=== PATIENT | male | born 1960 | race Caucasian/White ===

== ENCOUNTER 2016-11-13 13:42 | Emergency (ER) | payer MEDICAID ==
[~2016-11-13] VITALS: Ht 162.6 cm; Wt 63.5 kg
[~2016-11-13 13:42] MED LIST: ASP81CT PEG; Atorvastatin Calcium PO; BETH25TA PEG; ENXP40I.4 SC; FAMO20TA13 PEG; HYDR-3812 PO; HYDR1TAB8 OP; INSU100I16 SQ; INSU100V5 SQ; Insulin Human Lispro SC; NS10S IV; Paroxetine Hcl PO; Polyethylene Glycol PO; SULF1TAB38 PO; Tamsulosin Hcl PO
[2016-11-13] MEDS: fentaNYL INJECTION 100 MCG/2 ML AMP IVP STA ×2 (16:15→18:15)
[2016-11-13] MEDS: VANCOMYCIN INJECTION 1,000 MG in NS (IVPB) 250 ML IV ONE ×2 (16:15→18:15)
--- NOTE | 2016-11-13 16:35 | Diagnostic Imaging Report ---
INDICATION: Pain and swelling and redness in right foot. AP, oblique, and lateral views of the right foot are obtained. No fracture or acute bony abnormality is seen. Joint spaces are unremarkable. Impression: Negative right foot. Dictated by: Dictated on workstation # [id number]
--- NOTE | 2016-11-13 16:45 | ED Lower Extremity ---
General Chief Complaint: Lower Extremity Stated Complaint: R FOOT SWELLING Nursing Triage Note: c/o pain/swelling/redness to toes right foot. Onset 4-5 days ago. Nursing Sepsis Screen: No Definite Risk Source: patient, family Exam Limitations: no limitations History of Present Illness Time seen by provider: 15:25 Initial Comments 56-year-old male patient presents to the emergency department with complaints of redness, swelling, and pain to the right foot. Onset 4-5 days ago. Denies fever or chills. Family reports they were bringing the patient's father to be seen in the emergency department and thought they would bring the patient as well. Onset: other (4-5 days ago) Pain/Injury Location: right foot Method of Injury: unknown (denies known injury) Allergies and Home Medications Allergies Coded Allergies: No Known Drug Allergies (Unverified , 10/09/12) Home Medications Aspirin 81 Mg Chew, 81 MG PEG DAILY@0900 for 30 Days Prescribed by: BARBARA ALVAREZ on 12/05/13 1404 Atorvastatin Calcium 20 Mg Tablet, 20 MG PO HS for 30 Days, #30 Ref 0 Prescribed by: ANMOL NERI on 11/28/16 1713 Bethanechol Chl 25 Mg Tab, 50 MG PEG ACHS for 30 Days Prescribed by: BARBARA ALVAREZ on 12/05/13 1404 Doxycycline Hyclate 100 Mg Capsule, 100 MG PO BID, #20 Ref 0 Prescribed by: INDY BLANC on 11/13/16 1904 Famotidine 20 Mg Tablet, 20 MG PEG BID for 30 Days Prescribed by: BARBARA ALVAREZ on 12/05/13 1404 Hydrocodone/Acetaminophen 1 Each Tablet, 1 EACH PO Q4H PRN for PAIN, #20 Ref 0 Prescribed by: INDY BLANC on 11/22/14 1811 Insulin Detemir 1 Unit/0.01 Ml Soln, 25 UNIT SQ DAILY@0600, #1 Prescribed by: ROLY WELLS on 12/25/13 2021 Insulin Detemir 100 Unit/1 Ml Insuln.pen, 25 UNIT SQ HS for 30 Days, #3 Ref 0 Prescribed by: ANMOL NERI on 11/28/16 1713 Insulin Lispro 100 Unit/1 Ml Insuln.pen, 12 UNIT SQ TIDAC for 30 Days, #4 Ref 0 Prescribed by: ANMOL NERI on 11/28/161712 Paroxetine HCl 20 Mg Tablet, 20 MG PO HS for 30 Days, #30 Ref 0 Prescribed by: ANMOL NERI on 11/28/161712 Sulfamethoxazole/Trimethoprim 1 Each Tablet, 1 EACH PO BID, #20 Ref 0 Prescribed by: INDY BLANC on 11/13/161903 Tamsulosin HCl 0.4 Mg Cap, 0.4 MG PO HS for 30 Days, #30 Ref 0 Prescribed by: ANMOL NERI on 11/28/161712 Tramadol HCl 50 Mg Tablet, 50 MG PO Q4H PRN for pain, #14 Ref 0 Prescribed by: INDY BLANC on 11/13/161903 [Atorvastatin Calcium] 20 MG TABLET, 20 MG PO HS Prescribed by: BARBARA ALVAREZ on 12/05/13 1404 [Insulin Human Lispro] 1 UNIT/0.01 ML JAMIA, 12 UNIT SC AC, #1 Prescribed by: ROLY WELLS on 12/25/132020 [Paroxetine Hcl] 20 MG TAB, 20 MG PO DAILY, #30 Prescribed by: ROLY WELLS on 12/25/132020 [Polyethylene Glycol] 17 GM PACK, 17 GM PO HS, #1 Prescribed by: ROLY WELLS on 12/25/132020 [Tamsulosin Hcl] 0.4 MG CAP, 0.4 MG PO DAILY@1800, #30 Prescribed by: ROLY WELLS on 12/25/132020 Constitutional: No chills, No fever, No malaise Respiratory: no symptoms reported Cardiovascular: no symptoms reported Gastrointestinal: no symptoms reported Musculoskeletal: see HPI Skin: see HPI Psychiatric/Neurological: No Symptoms Reported All Other Systems Reviewed Negative Unless Noted: Yes (Negative excepted noted.) Past Jbxicjk-Splhsm-Zeorry Hx Patient Social History Recent Foreign Travel: No Contact w/Someone Who Travel: No Recent Infectious Disease Expo: No Immunizations Up To Date Tetanus Booster (TDap): Unknown Date of Pneumonia Vaccine: Nov 24, 2013 Date of Influenza Vaccine: Nov 29, 2013 Surgeries History of Surgeries: Yes (PEG tube) Respiratory History of Respiratory Disorde: No Cardiovascular History of Cardiac Disorders: No Neurological History of Neurological Disord: Yes Neurological Disorders: Stroke Reproductive System Hx Reproductive Disorders: No Genitourinary History of Genitourinary Disor: No Gastrointestinal History of Gastrointestinal Di: No Musculoskeletal History of Musculoskeletal Dis: No Endocrine History of Endocrine Disorders: Yes Endocrine Disorders: Diabetes, Insulin dep HEENT History of HEENT Disorders: No Reviewed Nursing Assessment Reviewed/Agree w Nursing PMH: Yes Family Medical History Significant Family History: No Pertinent Family Hx Family Medial History: Cardiovascular disease 19 FATHER 19 MOTHER Diabetes mellitus FH: congestive heart failure FH: prostate cancer Hypertension 19 MOTHER Myocardial infarction Respiratory disorder 19 MOTHER Physical Exam Vital Signs Capillary Refill : Less Than 3 Seconds General Appearance: WD/WN, no apparent distress, other (chronically ill- appearing male patient. Dirty, unkempt, malodorous.) Cardiovascular: regular rate, rhythm, no murmur Respiratory: lungs clear, normal breath sounds, no respiratory distress, no accessory muscle use Feet: left foot non-tender, right foot infection (erythema, warmth, swelling, and tenderness noted over the 1st and 2nd toes. numerous maggots noted on the wound bed.) Neurologic/Psychiatric: alert, depressed affect, other (expressive aphasia ( family reports this is normal for the patient due to a h/o stroke)) Skin: warm/dry, No cyanosis, No cool, No mottled, other (erythema, warmth, swelling, and tenderness noted over the rt 1st and 2nd toes. numerous maggots noted on the wound bed.) Progress/Results/Core Measures Results/Orders Lab Results Laboratory Tests Test 11/13/16 17:06 Range/Units White Blood Count 8.8 4.3-11.0 10^3/uL Red Blood Count 4.59 4.35-5.85 10^6/uL Hemoglobin 14.4 13.3-17.7 G/DL Hematocrit 40 40-54 % Mean Corpuscular Volume 87 80-99 FL Mean Corpuscular Hemoglobin 31 25-34 PG Mean Corpuscular Hemoglobin Concent 36 32-36 G/DL Red Cell Distribution Width 13.8 10.0-14.5 % Platelet Count 188 130-400 10^3/uL Mean Platelet Volume 10.7 H 7.4-10.4 FL Neutrophils (%) (Auto) 76 H 42-75 % Lymphocytes (%) (Auto) 17 12-44 % Monocytes (%) (Auto) 6 0-12 % Eosinophils (%) (Auto) 1 0-10 % Basophils (%) (Auto) 1 0-10 % Neutrophils # (Auto) 6.6 1.8-7.8 X 10^3 Lymphocytes # (Auto) 1.5 1.0-4.0 X 10^3 Monocytes # (Auto) 0.5 0.0-1.0 X 10^3 Eosinophils # (Auto) 0.1 0.0-0.3 10^3/uL Basophils # (Auto) 0.0 0.0-0.1 10^3/uL Sodium Level 137 135-145 MMOL/L Potassium Level 3.8 3.6-5.0 MMOL/L Chloride Level 101 98-107 MMOL/L Carbon Dioxide Level 26 21-32 MMOL/L Anion Gap 10 5-14 MMOL/L Blood Urea Nitrogen 15 7-18 MG/DL Creatinine 0.74 0.60-1.30 MG/DL Estimat Glomerular Filtration Rate > 60 BUN/Creatinine Ratio 20 Glucose Level 297 H 70-105 MG/DL Calcium Level 9.2 8.5-10.1 MG/DL Total Bilirubin 0.5 0.1-1.0 MG/DL Aspartate Amino Transf (AST/SGOT) 23 5-34 U/L Alanine Aminotransferase (ALT/SGPT) 30 0-55 U/L Alkaline Phosphatase 112 40-136 U/L C-Reactive Protein High Sensitivity 0.37 0.00-0.50 MG/DL Total Protein 6.7 6.4-8.2 GM/DL Albumin 3.4 3.2-4.5 GM/DL My Orders Orders - INDY BLANC Cbc With Automated Diff (11/13/16 15:56) Comprehensive Metabolic Panel (11/13/16 15:56) Hs C Reactive Protein (11/13/16 15:56) Saline Lock/Iv-Start (11/13/16 15:56) Foot, Right, 3 View (11/13/16 15:56) Fentanyl Injection (Sublimaze Injection (11/13/16 15:56) Levofloxacin Tablet (Levaquin Tablet) (11/13/16 17:51) Vancomycin Injection (Vancomycin Injecti (11/13/16 18:00) Lidocaine 2% Injection 20 Ml (Xylocaine (11/13/16 18:15) Bupivacaine 0.5% Injection (Sensorcaine (11/13/16 18:15) Iv Infusion <= First Hr Ed (11/13/16 ) Medications Given in ED Vital Signs/I&O Blood Pressure Mean: 107 Diagnostic Imaging Diagonstic Imaging: Xray Plain Films/CT/US/NM/MRI: other (rt foot) Comments FINDINGS: 3 views of the right ankle are obtained. No acute fracture, malalignment, or osseous destructive process is seen. The joint spaces are preserved. The soft tissues appear unremarkable. IMPRESSION: Negative right ankle. Dictated on workstation # [id number] Reviewed: Reviewed by Me (radiology report reviewed by me) Departure Communication (Admissions) Progress Notes All laboratory findings, diagnostic study findings, history, vital signs, and exam findings discussed with Dr. Alves. Recommendations by Dr. Alves are for discharge to home with oral Bactrim and doxycycline. Recommends follow-up with Dr. Georges as an outpatient for recheck on Wednesday. Laboratory findings, diagnostic study findings, and recommendations by Dr. Alves were discussed with the patient and family. Patient was given 1 g of vancomycin IV and Levaquin 500 mg by mouth 1 dose in the emergency department. Proceed with discharge to home. All return precautions were discussed with the patient and family as described in the discharge instructions of this report. All verbalize understanding and agree with the treatment plan. Patient case discussed with Dr. Edwards, he agrees with the plan of care. Impression Impression: Primary Impression: Cellulitis of foot, right Additional Impressions: Insulin dependent type 2 diabetes mellitus Diabetic foot ulcer Disposition: HOME, SELF-CARE Condition: Improved Departure-Patient Inst. Decision time for Depature: 19:01 Referrals: CHRISTIANO GEORGES MD (PCP/Family) Primary Care Physician Patient Instructions: Cellulitis (Skin Infection), Adult (DC), Diabetic Foot Ulcer (DC) Add. Discharge Instructions: All discharge instructions reviewed with patient and/or family. Voiced understanding. Medications as instructed. Continue usual home medications. Elevate the right foot on pillows. Shower with antibacterial soap. Monitor blood sugars closely. Call Outpatient wound care at [facility] Wednesday morning to schedule an appointment as an outpatient for evaluation and treatment. Return to the emergency department for worsened redness, pain, drainage, fever, or any other concerns. Scripts Tramadol HCl (Tramadol HCl) 50 Mg Tablet 50 MG PO Q4H Y for pain, #14 TAB 0 Refills Prov: INDY BLANC 11/13/16 Sulfamethoxazole/Trimethoprim (Bactrim Ds Tablet) 1 Each Tablet 1 EACH PO BID, #20 TAB 0 Refills Prov: INDY BLANC 11/13/16 Doxycycline Hyclate (Doxycycline Hyclate) 100 Mg Capsule 100 MG PO BID, #20 CAP 0 Refills Prov: INDY BLANC 11/13/16 INDY BLANC Nov 13, 2016 16:45
[2016-11-13 17:21] LABS: BASOPHILS % (AUTO) 1 % (0-10); EOSINOPHILS # (AUTO) 0.1 10^3/uL (0.0-0.3); EOSINOPHILS % (AUTO) 1 % (0-10); LYMPHOCYTES # (AUTO) 1.5 X 10^3 (1.0-4.0); LYMPHOCYTES % (AUTO) 17 % (12-44); MEAN CORPUSCULAR HEMOGLOBIN 31 PG (25-34); MEAN CORPUSCULAR HGB CONC 36 G/DL (32-36); MEAN CORPUSCULAR VOLUME 87 FL (80-99); MEAN PLATELET VOLUME 10.7 FL (7.4-10.4); MONOCYTES # (AUTO) 0.5 X 10^3 (0.0-1.0); MONOCYTES % (AUTO) 6 % (0-12); NEUTROPHILS # (AUTO) 6.6 X 10^3 (1.8-7.8); NEUTROPHILS % (AUTO) 76 % (42-75); PLATELET COUNT 188 10^3/uL (130-400); RED BLOOD COUNT 4.59 10^6/uL (4.35-5.85); RED CELL DISTRIBUTION WIDTH 13.8 % (10.0-14.5); WHITE BLOOD COUNT 8.8 10^3/uL (4.3-11.0)
[2016-11-13 17:47] LABS: ALANINE AMINOTRANSFERASE 30 U/L (0-55); ALBUMIN 3.4 GM/DL (3.2-4.5); ANION GAP 10 MMOL/L (5-14); ASPARTATE AMINO TRANSFERASE 23 U/L (5-34); BILIRUBIN,TOTAL 0.5 MG/DL (0.1-1.0); BLOOD UREA NITROGEN 15 MG/DL (7-18); BUN/CREATININE RATIO 20; CALCIUM 9.2 MG/DL (8.5-10.1); CARBON DIOXIDE 26 MMOL/L (21-32); CHLORIDE 101 MMOL/L (98-107); CREATININE SERUM 0.74 MG/DL (0.60-1.30); GFR ESTIMATED > 60; GLUCOSE 297 MG/DL (70-105); POTASSIUM 3.8 MMOL/L (3.6-5.0); SODIUM 137 MMOL/L (135-145); TOTAL PROTEIN 6.7 GM/DL (6.4-8.2); hs C REACTIVE PROTEIN 0.37 MG/DL (0.00-0.50)
[2016-11-13] MEDS ORDERED: LEVOFLOXACIN 500 MG TAB (LEVAQUIN) PO STA (17:51)
[2016-11-13] MEDS ORDERED: LIDOCAINE 2% 20 ML (XYLOCAINE) VIAL INJ ONE (18:15)
[2016-11-13] MEDS ORDERED: BUPIVACAINE 0.5% 30 ML (SENSORCAINE) VIAL INJ ONE (18:15)
[2016-11-13] MEDS ORDERED: TRAM50TA2 PO (19:04)
[2016-11-13] MEDS ORDERED: DOXY100C2 PO (19:04)
[2016-11-13] MEDS ORDERED: SULF1TAB35 PO (19:04)
[2016-11-13 19:32] VITALS: BP 163/98
== END 2016-11-13 19:32 | disposition home or self-care (01) ==
LOC: EDUNIT# 13:42 → ER 13:45
DX: E11.621 Type 2 diabetes mellitus with foot ulcer (principal); L97.519 Non-pressure chronic ulcer of other part of right foot with unspecified severity; Z82.49 Family history of ischemic heart disease and other diseases of the circulatory system; Z80.42 Family history of malignant neoplasm of prostate; Z79.82 Long term (current) use of aspirin; Z79.4 Long term (current) use of insulin; Z86.73 Personal history of transient ischemic attack (TIA), and cerebral infarction without residual deficits
CPT/HCPCS: 36415; 73630; 80053; 85025; 85027; 86141; 96365; 96375

== ENCOUNTER → 2016-11-23 | Outpatient (CLI) | payer MEDICAID ==
[~2016-11-23] MED LIST changes: +DOXY100C2 PO; +SULF1TAB35 PO; +TRAM50TA2 PO
== END ==
LOC: WOUNDCARE 13:41
PROVIDERS: ATTEND Surgery
DX: E11.621 Type 2 diabetes mellitus with foot ulcer (principal); L97.511 Non-pressure chronic ulcer of other part of right foot limited to breakdown of skin; I69.30 Unspecified sequelae of cerebral infarction
CPT/HCPCS: 97597

== ENCOUNTER 2016-11-28 16:31 | Emergency (ER) | payer MEDICAID ==
[~2016-11-28] VITALS: Ht 162.6 cm; Wt 63.5 kg
--- NOTE | 2016-11-28 17:02 | ED General ---
General Chief Complaint: Glucose Problems Stated Complaint: NEEDS INSULIN SHOT Nursing Triage Note: PT BROUGHT TO ROOM BY WHEELCHAIR. PT STATES HE NEEDS A REFILL ON HIS MEDICATIONS AND HIS INSULIN. Nursing Sepsis Screen: No Definite Risk Source of Information: Patient, Family (father and significant other) Exam Limitations: No Limitations History of Present Illness Time Seen by Provider: 16:47 Initial Comments Patient presents to ER by private conveyance with a chief complaint of being out of his meds. His caregiver and family have tried getting refills for the past couple weeks but apparently his physician has moved and there was no notice given and the clinic is not filling his insulin her meds. He is in the middle of wound care treatment for a wound on the right great toe and doing well with this however his blood sugar has been over 300 for the past 3 days because he's been out of insulin for the past 3 days. He is otherwise without complaint just needs refills. He has not found a new doctor yet. Allergies and Home Medications Allergies Coded Allergies: No Known Drug Allergies (Unverified , 10/09/12) Home Medications Aspirin 81 Mg Chew, 81 MG PEG DAILY@0900 for 30 Days Prescribed by: BARBARA ALVAREZ on 12/05/131403 Bethanechol Chl 25 Mg Tab, 50 MG PEG ACHS for 30 Days Prescribed by: BARBARA ALVAREZ on 12/05/13 140 Doxycycline Hyclate 100 Mg Capsule, 100 MG PO BID, #20 Ref 0 Prescribed by: INDY BLANC on 11/13/161903 Famotidine 20 Mg Tablet, 20 MG PEG BID for 30 Days Prescribed by: BARBARA ALVAREZ on 12/05/13 140 Hydrocodone/Acetaminophen 1 Each Tablet, 1 EACH PO Q4H PRN for PAIN, #20 Ref 0 Prescribed by: INDY BLANC on 11/22/141810 Insulin Detemir 1 Unit/0.01 Ml Soln, 25 UNIT SQ DAILY@0600, #1 Prescribed by: ROLY WELLS on 12/25/132020 Sulfamethoxazole/Trimethoprim 1 Each Tablet, 1 EACH PO BID, #20 Ref 0 Prescribed by: INDY BLANC on 11/13/161903 Tramadol HCl 50 Mg Tablet, 50 MG PO Q4H PRN for pain, #14 Ref 0 Prescribed by: INDY BLANC on 11/13/161903 [Atorvastatin Calcium] 20 MG TABLET, 20 MG PO HS Prescribed by: BARBARA ALVAREZ on 12/05/13 1404 [Insulin Human Lispro] 1 UNIT/0.01 ML JAMIA, 12 UNIT SC AC, #1 Prescribed by: ROLY WELLS on 12/25/132020 [Paroxetine Hcl] 20 MG TAB, 20 MG PO DAILY, #30 Prescribed by: ROLY WELLS on 12/25/132020 [Polyethylene Glycol] 17 GM PACK, 17 GM PO HS, #1 Prescribed by: ROLY WELLS on 12/25/132020 [Tamsulosin Hcl] 0.4 MG CAP, 0.4 MG PO DAILY@1800, #30 Prescribed by: ROLY WELLS on 12/25/132020 Constitutional: No chills, No diaphoresis, No fever EENTM: No ear pain, No eye pain Respiratory: No cough, No short of breath Cardiovascular: No chest pain, edema Gastrointestinal: No abdominal pain, No constipation, No diarrhea, No nausea Genitourinary: No discharge, No dysuria Musculoskeletal: No back pain, No joint pain Skin: No pruritus, No rash, other (wound on right foot) Psychiatric/Neurological: Denies Headache, Denies Numbness, Denies Paresthesia Past Pjzbypw-Gosfhl-Cmpqbm Hx Patient Social History Alcohol Use: Denies Use Recreational Drug Use: No Smoking Status: Never a Smoker 2nd Hand Smoke Exposure: Yes Recent Foreign Travel: No Contact w/Someone Who Travel: No Recent Infectious Disease Expo: No Recent Hopitalizations: No Physical Abuse: No Sexual Abuse: No Immunizations Up To Date Tetanus Booster (TDap): Unknown Date of Pneumonia Vaccine: Nov 24, 2013 Date of Influenza Vaccine: Nov 29, 2013 Seasonal Allergies Seasonal Allergies: No Surgeries History of Surgeries: Yes (PEG tube) Respiratory History of Respiratory Disorde: No Cardiovascular History of Cardiac Disorders: No Neurological History of Neurological Disord: Yes Neurological Disorders: Stroke Reproductive System Hx Reproductive Disorders: No Genitourinary History of Genitourinary Disor: No Gastrointestinal History of Gastrointestinal Di: No Musculoskeletal History of Musculoskeletal Dis: No Endocrine History of Endocrine Disorders: Yes Endocrine Disorders: Diabetes, Insulin dep HEENT History of HEENT Disorders: No Cancer History of Cancer: No Psychosocial History of Psychiatric Problem: No Suicide Risk Score: 0 Integumentary History of Skin or Integumenta: No Blood Transfusions History of Blood Disorders: No Family Medical History Significant Family History: No Pertinent Family Hx Family Medial History: Cardiovascular disease 19 FATHER 19 MOTHER Diabetes mellitus FH: congestive heart failure FH: prostate cancer Hypertension 19 MOTHER Myocardial infarction Respiratory disorder 19 MOTHER Physical Exam Vital Signs Vital Sign - Last 12Hours 11/28/16 16:38 Temp 98.3 Pulse 99 Resp 20 B/P (MAP) 138/89 Pulse Ox 96 O2 Delivery Room Air Capillary Refill : Less Than 3 Seconds General Appearance: No Apparent Distress, Thin Eyes: Bilateral Eye Normal Inspection, Bilateral Eye PERRL, Bilateral Eye EOMI HEENT: Pharynx Normal Neck: Normal Inspection, Non Tender Extremity: Normal Capillary Refill, Pedal Edema (1+), Other (dorsal pedal pulses palpable 2 out of 4 bilateral feet) Neurologic/Psychiatric: Alert, Oriented x3 Skin: Other (right foot great toe scaling with a wound is healed over and minor amount of eschar no drainage without redness, tenderness or discoloration. ) Progress/Results/Core Measures Results/Orders Vital Signs/I&O Vital Sign - Last 12Hours 11/28/16 16:38 Temp 98.3 Pulse 99 Resp 20 B/P (MAP) 138/89 Pulse Ox 96 O2 Delivery Room Air Blood Pressure Mean: 105 Progress Note : Time: 17:01 Progress Note We will refill his DME, insulin and Flexeril. The patient states he is taking Levemir 25 units at night and Humalog 25 units in the morning. We have recommended he follow up with a primary care physician such as [facility] and they can help him sort out his insulin. Discussed appropriate use a Humalog 3 times a day. Discussed wound healing benefits of keeping the blood sugar below 180. 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 Decision time for Depature: 17:02 Referrals: CHRISTIANO VELEZ MD (PCP/Family) Primary Care Physician Patient Instructions: Diabetes Type 2 (DC) Add. Discharge Instructions: Please poultry picker your insulin and diabetes supplies at the pharmacy and try and keep the blood sugars below 180 by controlling the diet and avoiding carbohydrate, sugar rich foods such as prostate, rice, potatoes, soda, dairy. Try and eat more vegetables, meat, eggs and fish. Try to get adequate fiber in your diet. Keep a record of your blood sugars and take them with you to your new doctor appointment. Wednesday morning I recommend you call the doctor of your choice. I suggest [facility] and [place] [facility] at [phone]. All discharge instructions reviewed with patient and/or family. Voiced understanding. Scripts Tamsulosin HCl (Flomax) 0.4 Mg Cap 0.4 MG PO HS for 30 Days, #30 CAP 0 Refills Prov: ANMOL NERI 11/28/16 Atorvastatin Calcium (Atorvastatin Calcium) 20 Mg Tablet 20 MG PO HS for 30 Days, #30 TAB 0 Refills Prov: ANMOL NERI 11/28/16 Paroxetine HCl (Paxil) 20 Mg Tablet 20 MG PO HS for 30 Days, #30 TAB 0 Refills Prov: ANMOL NERI 11/28/16 Insulin Lispro (Humalog Kwikpen) 100 Unit/1 Ml Insuln.pen 12 UNIT SQ TIDAC for 30 Days, #4 EA 0 Refills Prov: ANMOL NERI 11/28/16 Insulin Detemir (Levemir Flextouch) 100 Unit/1 Ml Insuln.pen 25 UNIT SQ HS for 30 Days, #3 EACH 0 Refills Prov: ANMOL NERI 11/28/16 Copy Copies To 1: RIVKA GIL TITUS J Nov 28, 2016 17:02
[2016-11-28] MEDS ORDERED: INSU100I29 SQ (17:13)
[2016-11-28] MEDS ORDERED: TAMS0.4C98 PO (17:13)
[2016-11-28] MEDS ORDERED: ATOR20TA66 PO (17:13)
[2016-11-28] MEDS ORDERED: INSU100I23 SQ (17:13)
[2016-11-28] MEDS ORDERED: PARO-49 PO (17:13)
[2016-11-28 17:28] VITALS: BP 138/89
== END 2016-11-28 17:28 | disposition home or self-care (01) ==
LOC: EDUNIT# 16:31 → ER 16:33
DX: E11.9 Type 2 diabetes mellitus without complications (principal); Z86.73 Personal history of transient ischemic attack (TIA), and cerebral infarction without residual deficits; Z87.828 Personal history of other (healed) physical injury and trauma; Z77.22 Contact with and (suspected) exposure to environmental tobacco smoke (acute) (chronic); Z79.82 Long term (current) use of aspirin; Z79.4 Long term (current) use of insulin; Z80.42 Family history of malignant neoplasm of prostate; Z82.49 Family history of ischemic heart disease and other diseases of the circulatory system
CPT/HCPCS: 99281

== ENCOUNTER → 2016-12-02 | Outpatient (CLI) | payer MEDICAID ==
[~2016-12-02] MED LIST changes: +ATOR20TA66 PO; +INSU100I23 SQ; +INSU100I29 SQ; +PARO-49 PO; +TAMS0.4C98 PO
== END ==
LOC: WOUNDCARE 15:06
PROVIDERS: ATTEND Surgery
DX: E11.621 Type 2 diabetes mellitus with foot ulcer (principal); L97.511 Non-pressure chronic ulcer of other part of right foot limited to breakdown of skin; I69.30 Unspecified sequelae of cerebral infarction
CPT/HCPCS: 99212

== ENCOUNTER 2017-11-29 14:48 | Inpatient (IN) | payer MEDICAID ==
[2017-11-29] VITALS (8 sets, daily range): BP systolic 135–162; BP diastolic 76–89
[~2017-11-29] VITALS: Ht 162.6 cm; Wt 69.5 kg
[~2017-11-29 14:48] MED LIST changes: +ACHD5005 PO; -HYDR-3812 PO
--- OUTSIDE RECORDS SUMMARY | 2017-11-29 14:53 | XMS REPORT | Continuity of Care Document ---
Author Author [facility] [place] Address Unknown Phone Unavailable Allergies Active Description Code Type Severity Reaction Onset Reported/Identified Relationship to Patient Clinical Status Yes No Known Drug Allergies [id number] Drug Allergy Unknown N/A 10/09/2012 Medications There is no data. 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 05/01/2011 JUN DESIR APRN 250.02 DIABETES MELLITUS TYPE 2 - UNCOMPLICATED, UNCONTROLLED 05/01/2011 JUN DESIR APRN 250.02 DIABETES MELLITUS TYPE 2 - UNCOMPLICATED, UNCONTROLLED 05/01/2011 250.02 DIABETES MELLITUS TYPE 2 - UNCOMPLICATED, UNCONTROLLED 05/01/2011 JUN DESIR APRN 250.02 DIABETES MELLITUS TYPE 2 - UNCOMPLICATED, UNCONTROLLED 05/01/2011 RIVKA GIL DO 250.02 DIABETES MELLITUS TYPE 2 - UNCOMPLICATED, UNCONTROLLED 05/01/2011 RIVKA GIL DO 250.02 DIABETES MELLITUS TYPE 2 - UNCOMPLICATED, UNCONTROLLED 12/17/2011 JUN DESIR APRN 070.54 HEPATITIS C CHRONIC 12/17/2011 JUN DESIR APRN 070.54 HEPATITIS C CHRONIC 12/17/2011 070.54 HEPATITIS C CHRONIC 12/17/2011 JUN DESIR APRN 070.54 HEPATITIS C CHRONIC 12/17/2011 RIVKA GIL DO 070.54 HEPATITIS C CHRONIC 12/17/2011 RIVKA GIL DO 070.54 HEPATITIS C CHRONIC 08/17/2012 JUN DESIR APRN 303.90 ALCOHOL DEPENDENCE 08/17/2012 JUN DESIR APRN 729.5 PAIN IN LIMB 08/17/2012 RIVKA GIL DO 303.90 ALCOHOL DEPENDENCE 08/17/2012 RIVKA GIL DO 729.5 PAIN IN LIMB 08/17/2012 GIL DO, RIVKA K 303.90 ALCOHOL DEPENDENCE 08/17/2012 GIL DO, RIVKA K 729.5 PAIN IN LIMB 10/09/2012 MAYRA DO, SHAHEED K Ot 816.02 10/09/2012 MAYRA DO, SHAHEED K Ot 883.0 10/09/2012 MAYRA DO, SHAHEED K Ot 959.5 10/09/2012 MAYRA DO, SHAHEED K Ot E000.8 10/09/2012 MAYRA DO, SHAHEED K Ot E849.0 10/09/2012 MAYRA DO, SHAHEED K Ot E920.2 10/09/2012 MAYRA DO, SHAHEED K Ot V06.1 06/15/2013 GIL DO, RIVKA K 682.6 CELLULITIS AND ABSCESS OF LEG EXCEPT FOOT 06/15/2013 GIL DO, RIVKA K 682.6 CELLULITIS AND ABSCESS OF LEG EXCEPT FOOT 12/05/2013 GIL DO, RIVKA K Ot 070.70 12/05/2013 GIL DO, RIVKA K Ot 250.00 12/05/2013 GIL DO, RIVKA K Ot 275.2 12/05/2013 GIL DO, RIVKA K Ot 303.91 12/05/2013 GIL DO, RIVKA K Ot 305.1 12/05/2013 GIL DO, RIVKA K Ot 305.70 12/05/2013 GIL DO, RIVKA K Ot 342.90 12/05/2013 GIL DO, RIVKA K Ot 401.9 12/05/2013 GIL DO, RIVKA K Ot 433.10 12/05/2013 GIL DO, RIVKA K Ot 433.30 12/05/2013 GIL DO, RIVKA K Ot 434.91 12/05/2013 GIL DO, RIVKA K Ot 784.3 12/05/2013 GIL DO, RIVKA K Ot 787.20 12/05/2013 GIL DO, RIVKA K Ot 788.20 12/05/2013 GIL DO, RIVKA K Ot V03.82 12/05/2013 GIL DO, RIVKA K Ot V04.81 12/05/2013 GIL DO, RIVKA K Ot V15.81 12/05/2013 GIL DO, RIVKA K Ot V58.67 12/05/2013 GIL DO, RIVKA K Ot V58.69 12/27/2013 RUSSELL GOMEZ, ROLY Neves Ot 070.70 12/27/2013 RUSSELL GOMEZ, ROLY E Ot 250.00 12/27/2013 RUSSELL GOMEZ, ROLY E Ot 296.90 12/27/2013 RUSSELL GOMEZ, ROLY E Ot 303.90 12/27/2013 RUSSELL GOMEZ, ROLY E Ot 305.1 12/27/2013 RUSSELL GOMEZ, ROLY E Ot 305.70 12/27/2013 RUSSELL GOMEZ, ROLY E Ot 401.9 12/27/2013 RUSSELL GOMEZ, ROLY E Ot 433.10 12/27/2013 RUSSELL GOMEZ, ROLY E Ot 433.30 12/27/2013 RUSSELL GOMEZ, ROLY E Ot 438.11 12/27/2013 RUSSELL GOMEZ, ROLY E Ot 438.21 12/27/2013 RUSSELL GOMEZ, ROLY E Ot 438.82 12/27/2013 RUSSELL GOMEZ, ROLY E Ot 787.20 12/27/2013 RUSSELL GOMEZ, ROLY E Ot 788.20 12/27/2013 RUSSELL GOMEZ, ROLY E Ot V57.89 06/13/2014 CLAUDIA LAYTON MD Ot 250.00 06/13/2014 CLAUDIA LAYTON MD Ot 305.1 06/13/2014 CLAUDIA LAYTON MD Ot V58.67 10/28/2014 BRETT LAYTON MDOTHY Rosanna Ot 250.80 10/28/2014 CLAUDIA LAYTON MD Ot 438.11 10/28/2014 CLAUDIA LAYTON MD Ot 780.79 10/28/2014 CLAUDIA LAYTON MD Ot V58.67 11/22/2014 INDY DENT Ot 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, SPEECH LA 11/22/2014 INDY DENT Ot 438.89 OTH LATE EFFECT-CEREBROVASCULAR DISEASE 11/22/2014 INDY DENT Ot 728.87 MUSCLE WEAKNESS (GENERALIZED) 11/22/2014 INDY DENT Ot 729.5 PAIN IN LIMB 11/22/2014 INDY DENT Ot 812.01 FX SURG NCK HUMERUS-CLOS 11/22/2014 INDY DENT Ot E000.8 OTHER EXTERNAL CAUSE STATUS 11/22/2014 INDY DENT Ot E928.9 ACCIDENT NOS 02/04/2016 DAJUAN, LAUREN H [employer] Ot 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 02/10/2016 LAUREN GRAFF [employer] Ot I69.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 02/11/2016 LAUREN GRAFF [employer] Ot 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 02/11/2016 LAUREN GRAFF [employer] Ot I69.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 02/17/2016 LAUREN GRAFF [employer]OR [employer] Ot I69.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 02/17/2016 LAUREN GRAFF [employer]OR [employer] Ot 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 11/13/2016 INDY DENT Ot E11.621 TYPE 2 DIABETES MELLITUS WITH FOOT ULCER 11/13/2016 INDY DENT Ot L97.519 NON-PRS CHRONIC ULCER OTH PRT RIGHT FOOT 11/13/2016 INDY DENT Ot M79.671 PAIN IN RIGHT FOOT 11/13/2016 INDY DENT Ot Z79.4 SENIOR LIVING (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 11/13/2016 INDY DENT Ot 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 11/13/2016 INDY DENT Ot Z80.42 FAMILY HISTORY OF MALIGNANT NEOPLASM OF 11/13/2016 INDY DENT Ot Z82.49 FAMILY HX OF ISCHEM HEART DIS AND OTH DI 11/13/2016 INDY DENT Ot Z86.73 PRSNL HX OF TIA (TIA), AND CEREB INFRC W 11/21/2016 INDY DENT Ot E11.621 TYPE 2 DIABETES MELLITUS WITH FOOT ULCER 11/21/2016 INDY DENT Ot L97.519 NON-PRS CHRONIC ULCER OTH PRT RIGHT FOOT 11/21/2016 INDY DENT Ot M79.671 PAIN IN RIGHT FOOT 11/21/2016 INDY DENT Ot 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.4 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 (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 11/21/2016 INDY DENT Ot Z79.82 SENIOR LIVING (CURRENT) USE OF ASPIRIN 11/21/2016 INDY DENT Ot Z80.42 FAMILY HISTORY OF MALIGNANT NEOPLASM OF 11/21/2016 JAYASHREE PA, INDY L Ot Z82.49 FAMILY HX OF ISCHEM HEART DIS AND OTH DI 11/21/2016 INDY DENT Ot Z86.73 PRSNL HX OF TIA (TIA), AND CEREB INFRC W 11/25/2016 JUN AUGUSTE MD, Ot E11.621 TYPE 2 DIABETES MELLITUS WITH FOOT ULCER 11/25/2016 JUN AUGUSTE MD, Ot 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 11/25/2016 JUN AUGUSTE MD, Ot L97.511 NON-PRS CHRONIC ULCER OTH PRT R FOOT REYES 11/28/2016 JUN AUGUSTE MD, Ot E11.621 TYPE 2 DIABETES MELLITUS WITH FOOT ULCER 11/28/2016 JUN AUGUSTE MD, Ot 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 11/28/2016 JUN AUGUSTE MD, Ot L97.511 NON-PRS CHRONIC ULCER OTH PRT R FOOT REYES 11/28/2016 ANMOL NERI MD Ot E11.9 TYPE 2 DIABETES MELLITUS WITHOUT COMPLIC 11/28/2016 ANMOL NERI MD Ot Z77.22 CNTCT W AND EXPSR TO ENVIRON TOBACCO SMO 11/28/2016 ANMOL NERI MD Ot Z79.4 CONTRACTING 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 (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 11/28/2016 ANMOL NERI MD Ot Z79.82 SENIOR LIVING (CURRENT) USE OF ASPIRIN 11/28/2016 ANMOL NERI MD Ot Z80.42 FAMILY HISTORY OF MALIGNANT NEOPLASM OF 11/28/2016 ANMOL NERI MD Ot Z82.49 FAMILY HX OF ISCHEM HEART DIS AND OTH DI 11/28/2016 ANMOL NERI MD Ot Z86.73 PRSNL HX OF TIA (TIA), AND CEREB INFRC W 11/28/2016 ANMOL NERI MD Ot Z87.828 PERSONAL HISTORY OF OTH (HEALED) PHYSICA 12/04/2016 JUN AUGUSTE MD Ot E11.621 TYPE 2 DIABETES MELLITUS WITH FOOT ULCER 12/04/2016 JUN AUGUSTE MD, Ot 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 12/04/2016 JUN AUGUSTE MD, Ot L97.511 NON-PRS CHRONIC ULCER OTH PRT R FOOT REYES 12/15/2016 JUN AUGUSTE MD Ot E11.621 TYPE 2 DIABETES MELLITUS WITH FOOT ULCER 12/15/2016 JUN AUGUSTE MD Ot 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 12/15/2016 JUN AUGUSTE MD, Ot L97.511 NON-PRS CHRONIC ULCER OT PRT R FOOT REYES Procedures Code Description [place] [address] A1C (IN-HOUSE) 12/17/2011 24831 A1C (IN-HOUSE) 08/17/2012 53816 CULTURE WOUND (AEROBIC) 06/18/2013 Results Test Result Range Complete blood count (CBC) with automated white blood cell (WBC) differential - 11/13/16 17:06 Blood leukocytes automated count (number/volume) 8.8 10*3/uL 4.3-11.0 Blood erythrocytes automated count (number/volume) 4.59 10*6/uL 4.35-5.85 Venous blood hemoglobin measurement (mass/volume) 14.4 g/dL 13.3-17.7 Blood hematocrit (volume fraction) 40 % 40-54 Automated erythrocyte mean corpuscular volume 87 [foz_us] 80-99 Automated erythrocyte mean corpuscular hemoglobin (mass per erythrocyte) 31 pg 25-34 Automated erythrocyte mean corpuscular hemoglobin concentration measurement ( mass/volume) 36 g/dL 32-36 Automated erythrocyte distribution width ratio 13.8 % 10.0-14.5 Automated blood platelet count (count/volume) 188 10*3/uL 130-400 Automated blood platelet mean volume measurement 10.7 [foz_us] 7.4-10.4 Automated blood neutrophils/100 leukocytes 76 % 42-75 Automated blood lymphocytes/100 leukocytes 17 % 12-44 Blood monocytes/100 leukocytes 6 % 0-12 Automated blood eosinophils/100 leukocytes 1 % 0-10 Automated blood basophils/100 leukocytes 1 % 0-10 Blood neutrophils automated count (number/volume) 6.6 10*3 1.8-7.8 Blood lymphocytes automated count (number/volume) 1.5 10*3 1.0-4.0 Blood monocytes automated count (number/volume) 0.5 10*3 0.0-1.0 Automated eosinophil count 0.1 10*3/uL 0.0-0.3 Automated blood basophil count (count/volume) 0.0 10*3/uL 0.0-0.1 Comprehensive metabolic panel - 11/13/16 17:06 Serum or plasma sodium measurement (moles/volume) 137 mmol/L 135-145 Serum or plasma potassium measurement (moles/volume) 3.8 mmol/L 3.6-5.0 Serum or plasma chloride measurement (moles/volume) 101 mmol/L 98-107 Carbon dioxide 26 mmol/L 21-32 Serum or plasma anion gap determination (moles/volume) 10 mmol/L 5-14 Serum or plasma urea nitrogen measurement (mass/volume) 15 mg/dL 7-18 Serum or plasma creatinine measurement (mass/volume) 0.74 mg/dL 0.60-1.30 Serum or plasma urea nitrogen/creatinine mass ratio 20 NRG Serum or plasma creatinine measurement with calculation of estimated glomerular filtration rate > NRG Serum or plasma glucose measurement (mass/volume) 297 mg/dL 70-105 Serum or plasma calcium measurement (mass/volume) 9.2 mg/dL 8.5-10.1 Serum or plasma total bilirubin measurement (mass/volume) 0.5 mg/dL 0.1-1.0 Serum or plasma alkaline phosphatase measurement (enzymatic activity/volume) 112 U/L 40-136 Serum or plasma aspartate aminotransferase measurement (enzymatic activity/ volume) 23 U/L 5-34 Serum or plasma alanine aminotransferase measurement (enzymatic activity/volume ) 30 U/L 0-55 Serum or plasma protein measurement (mass/volume) 6.7 g/dL 6.4-8.2 Serum or plasma albumin measurement (mass/volume) 3.4 g/dL 3.2-4.5 Serum or plasma C reactive protein measurement (mass/volume) - 11/13/16 17:06 Serum or plasma C reactive protein measurement (mass/volume) 0.37 mg /dL 0.00-0.50 Encounters ACCT No. Visit Date/Time Discharge Status Pt. Type Provider Facility Loc./Unit Complaint [id number] 01/17/2014 06:56:00 01/17/2014 23:59:59 [facility] Outpatient RIVKA GIL DO [id number] 06/15/2013 15:40:00 06/15/2013 23:59:59 [facility] Outpatient RIVKA GIL DO [id number] 08/17/2012 14:46:00 08/17/2012 23:59:59 [facility] Outpatient JUN DESIR APRN [id number] 02/03/2012 13:59:00 02/03/2012 23:59:59 [facility] JUN DESIR APRN [id number] 12/17/2011 15:21:00 12/17/2011 23:59:59 [facility] Outpatient JUN DESIR APRN Johnnie [id number] 04/13/2012 07:09:00 Document Registration [id number] 12/02/2016 15:06:00 12/02/2016 23:59:59 [facility] Outpatient JUN AUGUSTE MD [facility] WOUNDCARE [id number] 11/28/2016 16:33:00 11/28/2016 17:28:00 DIS Emergency ANMOL NERI MD [facility] ER NEEDS INSULIN SHOT [id number] 11/23/2016 13:41:00 11/23/2016 23:59:59 [facility] Outpatient JUN AUGUSTE MD [facility] WOUNDC[facility] [id number] 11/13/2016 13:45:00 11/13/2016 19:32:00 DIS Emergency INDY DENT [facility] ER R FOOT SWELLING [id number] 01/27/2016 13:55:00 02/17/2016 14:04:00 DIS Outpatient LAUREN GRAFF [facility] REHAB R SIDED WEAKNESS; CVA; BALANCE AND WEAKNESS [id number] 01/27/2016 13:51:00 02/17/2016 13:52:00 DIS Outpatient LAUREN GRAFF [facility] REH[facility] CVA; R HEMIPLEGIA [id number] 11/22/2014 15:59:00 11/22/2014 18:36:00 DIS Emergency INDY DENT [facility] ER FALL, L ARM PAIN [id number] 10/27/2014 20:51:00 10/28/2014 00:05:00 DIS Emergency CLAUDIA LAYTON MD [facility] ER [id number] 06/13/2014 08:02:00 06/13/2014 09:16:00 DIS Emergency CLAUDIA LAYTON MD [facility] ER [id number] 12/05/2013 15:23:00 12/27/2013 14:00:00 DIS Inpatient RUSSELL GOMEZ, ROLY Neves [facility] IRF [id number] 11/20/2013 21:24:00 12/05/2013 16:43:00 DIS Inpatient RIVKA GIL DO [facility] 4TH [id number] 10/09/2012 16:31:00 10/09/2012 19:19:00 DIS Emergency MAYRASHAHEED Hager DO [facility] ER
--- NOTE | 2017-11-29 15:01 | ED Neurological Problem ---
General Stated Complaint: AMS Source: EMS, caregiver Exam Limitations: no limitations History of Present Illness Date Seen by Provider: Nov 29, 2017 Time Seen by Provider: 14:58 Initial Comments To ER with reports of altered mental status. He comes from home where he has caregivers. No fevers or chills. No pain. Patient has had a prior stroke and has garbled speech/mumbling speech and apparent altered mental status per baseline according to EMS. He arrives without family or caregiver to advise us otherwise. Caregiver reported to EMS that the symptoms of altered mental status were first noticed on Wednesday11/26/17. Timing/Duration: other (3 days) Severity: moderate Associated Symptoms: confusion Allergies and Home Medications Allergies Coded Allergies: No Known Drug Allergies (Unverified , 10/09/12) Home Medications Aspirin 81 Mg Chew, 81 MG PEG DAILY@0900 Prescribed by: BARBARA ALVAREZ on 12/05/13 1404 Atorvastatin Calcium 20 Mg Tablet, 20 MG PO HS Prescribed by: ANMOL NERI on 11/28/16 171 Bethanechol Chl 25 Mg Tab, 50 MG PEG ACHS Prescribed by: BARBARA ALVAREZ on 12/05/13 140 Doxycycline Hyclate 100 Mg Capsule, 100 MG PO BID Prescribed by: INDY BLANC on 11/13/16 190 Famotidine 20 Mg Tablet, 20 MG PEG BID Prescribed by: BARBARA ALVAREZ on 12/05/13 140 Hydrocodone Bit/Acetaminophen 1 Each Tablet, 1 EACH PO Q4H PRN for PAIN Prescribed by: INDY BLANC on 11/22/14 181 Insulin Detemir 1 Unit/0.01 Ml Soln, 25 UNIT SQ DAILY@0600 Prescribed by: ROLY WELLS on 12/25/132020 Insulin Detemir 100 Unit/1 Ml Insuln.pen, 25 UNIT SQ HS Prescribed by: ANMOL NERI on 11/28/16 171 Insulin Lispro 100 Unit/1 Ml Insuln.pen, 12 UNIT SQ TIDAC Prescribed by: ANMOL NERI on 11/28/161712 Paroxetine HCl 20 Mg Tablet, 20 MG PO HS Prescribed by: ANMOL NERI on 11/28/16 171 Sulfamethoxazole/Trimethoprim 1 Each Tablet, 1 EACH PO BID Prescribed by: INDY BLANC on 11/13/16 190 Tamsulosin HCl 0.4 Mg Cap, 0.4 MG PO HS Prescribed by: ANMOL NERI on 11/28/16 171 Tramadol HCl 50 Mg Tablet, 50 MG PO Q4H PRN for pain Prescribed by: INDY BLANC on 11/13/16 190 [Atorvastatin Calcium] 20 MG TABLET, 20 MG PO HS Prescribed by: BARBARA ALVAREZ on 12/05/13 1404 [Insulin Human Lispro] 1 UNIT/0.01 ML JAMIA, 12 UNIT SC AC Prescribed by: ROLY WELLS on 12/25/132020 [Paroxetine Hcl] 20 MG TAB, 20 MG PO DAILY Prescribed by: ROLY WELLS on 12/25/132020 [Polyethylene Glycol] 17 GM PACK, 17 GM PO HS Prescribed by: ROLY WELLS on 12/25/132020 [Tamsulosin Hcl] 0.4 MG CAP, 0.4 MG PO DAILY@1800 Prescribed by: ROLY WELLS on 12/25/132020 Patient Home Medication List Home Medication List Reviewed: Yes Review of Systems Review of Systems Constitutional: see HPI Eyes: No Symptoms Reported Ears, Nose, Mouth, Throat: no symptoms reported Respiratory: no symptoms reported Cardiovascular: no symptoms reported Genitourinary: no symptoms reported Musculoskeletal: no symptoms reported Skin: no symptoms reported Psychiatric/Neurological: See HPI, Cognitive Dysfunction Past Pqhlcqw-Ooszhk-Gnfvlf Hx Patient Social History 2nd Hand Smoke Exposure: Yes Recent Hopitalizations: No Immunizations Up To Date Tetanus Booster (TDap): Unknown Date of Pneumonia Vaccine: Nov 24, 2013 Date of Influenza Vaccine: Nov 29, 2013 Seasonal Allergies Seasonal Allergies: No Past Medical History Surgeries: Yes (PEG tube) Respiratory: No Cardiac: No Neurological: Yes Stroke Reproductive Disorders: No Genitourinary: No Gastrointestinal: No Musculoskeletal: No Endocrine: Yes Diabetes, Insulin dep HEENT: No Cancer: No Psychosocial: No Integumentary: No Blood Disorders: No Family Medical History Cardiovascular disease 19 FATHER 19 MOTHER Diabetes mellitus FH: congestive heart failure FH: prostate cancer Hypertension 19 MOTHER Myocardial infarction Respiratory disorder 19 MOTHER No Pertinent Family Hx Physical Exam Vital Signs Vital Signs - First Documented 11/29/17 16:25 Temp 98.0 Pulse 98 Resp 19 B/P (MAP) 141/86 (104) Pulse Ox 96 O2 Delivery Room Air Capillary Refill : Height, Weight, BMI Height: 5'4.00" Weight: 140lbs. 0.4oz. 63.925332ot; 27.46 BMI Method:Stated General Appearance: WD/WN, no apparent distress HEENT: PERRL/EOMI, normal ENT inspection Neck: non-tender, full range of motion Respiratory: no respiratory distress, no accessory muscle use Cardiovascular: regular rate, rhythm, no murmur Gastrointestinal: normal bowel sounds, non tender, soft Neurologic/Psychiatric: alert, other (garbled mumbled speech but I am unable to understand. ) Skin: normal color, warm/dry, other (fecal material on bilateral lower extremities) Stroke Stroke Thrombolytic Exclusion Age 18 or Over: Yes Procedures/Interventions Lumen: triple Central Line Procedure: betadine prep Position: internal jugular (R) Anesthesia: Lidocaine Volume Anesthetic (ccs): 3 Complications: none Post Position: sutured, good blood return, position confirmed w/ CXR Progress/Results/Core Measures Results/Orders Lab Results Laboratory Tests Test 11/29/17 16:35 11/29/17 17:08 Range/Units White Blood Count 9.7 4.3-11.0 10^3/uL Red Blood Count 5.31 4.35-5.85 10^6/uL Hemoglobin 16.8 13.3-17.7 G/DL Hematocrit 45 40-54 % Mean Corpuscular Volume 85 80-99 FL Mean Corpuscular Hemoglobin 32 25-34 PG Mean Corpuscular Hemoglobin Concent 37 H 32-36 G/DL Red Cell Distribution Width 13.9 10.0-14.5 % Platelet Count 177 130-400 10^3/uL Mean Platelet Volume 10.4 7.4-10.4 FL Neutrophils (%) (Auto) 72 42-75 % Lymphocytes (%) (Auto) 18 12-44 % Monocytes (%) (Auto) 8 0-12 % Eosinophils (%) (Auto) 2 0-10 % Basophils (%) (Auto) 1 0-10 % Neutrophils # (Auto) 7.0 1.8-7.8 X 10^3 Lymphocytes # (Auto) 1.7 1.0-4.0 X 10^3 Monocytes # (Auto) 0.8 0.0-1.0 X 10^3 Eosinophils # (Auto) 0.2 0.0-0.3 10^3/uL Basophils # (Auto) 0.1 0.0-0.1 10^3/uL Sodium Level 137 135-145 MMOL/L Potassium Level 3.6 3.6-5.0 MMOL/L Chloride Level 105 98-107 MMOL/L Carbon Dioxide Level 20 L 21-32 MMOL/L Anion Gap 12 5-14 MMOL/L Blood Urea Nitrogen 14 7-18 MG/DL Creatinine 0.74 0.60-1.30 MG/DL Estimat Glomerular Filtration Rate > 60 BUN/Creatinine Ratio 19 Glucose Level 255 H 70-105 MG/DL Calcium Level 9.0 8.5-10.1 MG/DL Corrected Calcium 9.6 8.5-10.1 MG/DL Total Bilirubin 0.7 0.1-1.0 MG/DL Aspartate Amino Transf (AST/SGOT) 39 H 5-34 U/L Alanine Aminotransferase (ALT/SGPT) 32 0-55 U/L Alkaline Phosphatase 87 40-136 U/L Troponin I 4.28 *H <0.30 NG/ML B-Type Natriuretic Peptide 173.5 H <100.0 PG/ML Total Protein 6.6 6.4-8.2 GM/DL Albumin 3.3 3.2-4.5 GM/DL Urine Color YELLOW Urine Clarity CLEAR Urine pH 6 5-9 Urine Specific [place] 1.020 1.016-1.022 Urine Protein 4+ NEGATIVE Urine Glucose (UA) 4+ H NEGATIVE Urine Ketones 4+ H NEGATIVE Urine Nitrite NEGATIVE NEGATIVE Urine Bilirubin 1+ H NEGATIVE Urine Urobilinogen 4 H NORMAL MG/DL Urine Leukocyte Esterase 1+ H NEGATIVE Urine RBC (Auto) NEGATIVE NEGATIVE Urine RBC 0-2 /HPF Urine WBC NONE /HPF Urine Crystals NONE /LPF Urine Bacteria TRACE /HPF Urine Casts NONE /LPF Urine Mucus NEGATIVE /LPF Urine Culture Indicated NO My Orders Orders - MARY KAY PRETTY APRN Cbc With Automated Diff (11/29/17 14:56) Comprehensive Metabolic Panel (11/29/17 14:56) Protime With Inr (11/29/17 14:56) Ua Culture If Indicated (11/29/17 14:56) Straight Cath (Urinary) (11/29/17 14:56) Chest 1 View, Ap/Pa Only (11/29/17 14:56) Ct Head Wo (11/29/17 14:56) Iv Heplock-Insert (Order) (11/29/17 14:56) BNP (11/29/17 15:57) Troponin I (11/29/17 15:57) Ekg Tracing (11/29/17 15:57) Vital Signs/I&O 11/29/17 16:25 Temp 98.0 Pulse 98 Resp 19 B/P (MAP) 141/86 (104) Pulse Ox 96 O2 Delivery Room Air Diagnostic Imaging Diagonstic Imaging: CT Comments NAME: ROBERT MARIA [facility] REC#: [id number] PT STATUS: REG ER : 1960 PHYSICIAN: MARY KAY PRETTY APRN ADMIT DATE: 11/29/17/ER Draft Date of Exam:11/29/17 CT HEAD WO PROCEDURE: CT head without contrast. TECHNIQUE: Multiple contiguous axial images were obtained through the brain without the use of intravenous contrast. INDICATION: Altered mental status. COMPARISON: CT head without contrast 11/26/2013. FINDINGS: Examination limited by motion artifact. Chronic infarct in the left frontal lobe. Advanced generalized cerebral and cerebellar parenchymal volume loss. Advanced leukoaraiosis. No CT evidence for territorial infarction. No intracranial hemorrhage, mass effect, hydrocephalus, or extra-axial fluid collection. Moderate mucosal thickening in the partially visualized ethmoid sinuses. The mastoids are clear. Osseous structures are intact. IMPRESSION: 1. Evaluation limited by motion. 2. No acute intracranial CT findings. 3. Large chronic infarct in the left frontal lobe. Dictated on workstation # [id number] Dict: 11/29/17 1546 Trans: 11/29/17 [facility]2 [phone] Interpreted by: DAVID ALEMAN MD Electronically signed by: NAME: ROBERT MARIA [facility] REC#: [id number] PT STATUS: REG ER : 1960 PHYSICIAN: MARY KAY PRETTY APRN ADMIT DATE: 11/29/17/ER Draft Date of Exam:11/29/17 CHEST 1 VIEW, AP/PA ONLY INDICATION: Altered mental status. COMPARISON: Chest dated 11/24/2013. FINDINGS: Single frontal radiographic view of the chest was obtained and demonstrates mild cardiomegaly and mild prominence of the pulmonary vasculature. Lungs show low inspiratory volumes with crowding of the central hilar structures. Pulmonary interstitium is also slightly prominent. There is no focal consolidation, large effusion, nor pneumothorax. Bony structures show no gross acute abnormalities. IMPRESSION: 1. Mild cardiomegaly with sequelae of CHF including probable interstitial pulmonary edema. Clinical correlation recommended. Dictated on workstation # [id number] Dict: 11/29/17 1552 Trans: 11/29/17 [phone] Interpreted by: PENELOPE ZAMORA MD Electronically signed by: Departure Communication (Admissions) Patient was poked multiple times by RN and myself trying to obtain peripheral IV access without success. I Did start a central line for this reason. Impression Primary Impression: NSTEMI (non-ST elevated myocardial infarction) Disposition: ADMITTED INPATIENT Condition: Stable Admissions Decision to Admit Reason: Admit from ER (General) Decision to Admit/Date: Nov 29, 2017 Time/Decision to Admit Time: 17:48 Departure-Patient Inst. Referrals: CHRISTIANO VELEZ MD (PCP/Family) Primary Care Physician MARY KAY PRETTY APRN Nov 29, 2017 15:01
--- NOTE | 2017-11-29 15:53 | Diagnostic Imaging Report ---
PROCEDURE: CT head without contrast. TECHNIQUE: Multiple contiguous axial images were obtained through the brain without the use of intravenous contrast. INDICATION: Altered mental status. COMPARISON: CT head without contrast 11/26/2013. FINDINGS: Examination limited by motion artifact. Chronic infarct in the left frontal lobe. Advanced generalized cerebral and cerebellar parenchymal volume loss. Advanced leukoaraiosis. No CT evidence for territorial infarction. No intracranial hemorrhage, mass effect, hydrocephalus, or extra-axial fluid collection. Moderate mucosal thickening in the partially visualized ethmoid sinuses. The mastoids are clear. Osseous structures are intact. IMPRESSION: 1. Evaluation limited by motion. 2. No acute intracranial CT findings. 3. Large chronic infarct in the left frontal lobe. Dictated by: Dictated on workstation # [id number]
--- NOTE | 2017-11-29 15:55 | Diagnostic Imaging Report ---
INDICATION: Altered mental status. COMPARISON: Chest dated 11/24/2013. FINDINGS: Single frontal radiographic view of the chest was obtained and demonstrates mild cardiomegaly and mild prominence of the pulmonary vasculature. Lungs show low inspiratory volumes with crowding of the central hilar structures. Pulmonary interstitium is also slightly prominent. There is no focal consolidation, large effusion, nor pneumothorax. Bony structures show no gross acute abnormalities. IMPRESSION: 1. Mild cardiomegaly with sequelae of CHF including probable interstitial pulmonary edema. Clinical correlation recommended. Dictated by: Dictated on workstation # [id number]
[2017-11-29 16:45] LABS: BASOPHILS # (AUTO) 0.1 10^3/uL (0.0-0.1); BASOPHILS % (AUTO) 1 % (0-10); EOSINOPHILS # (AUTO) 0.2 10^3/uL (0.0-0.3); EOSINOPHILS % (AUTO) 2 % (0-10); HEMATOCRIT 45 % (40-54); HEMOGLOBIN 16.8 G/DL (13.3-17.7); LYMPHOCYTES # (AUTO) 1.7 X 10^3 (1.0-4.0); LYMPHOCYTES % (AUTO) 18 % (12-44); MEAN CORPUSCULAR HEMOGLOBIN 32 PG (25-34); MEAN CORPUSCULAR HGB CONC 37 G/DL (32-36); MEAN CORPUSCULAR VOLUME 85 FL (80-99); MEAN PLATELET VOLUME 10.4 FL (7.4-10.4); MONOCYTES # (AUTO) 0.8 X 10^3 (0.0-1.0); MONOCYTES % (AUTO) 8 % (0-12); NEUTROPHILS % (AUTO) 72 % (42-75); PLATELET COUNT 177 10^3/uL (130-400); RED BLOOD COUNT 5.31 10^6/uL (4.35-5.85); RED CELL DISTRIBUTION WIDTH 13.9 % (10.0-14.5); WHITE BLOOD COUNT 9.7 10^3/uL (4.3-11.0)
[2017-11-29 17:04] LABS: ALANINE AMINOTRANSFERASE 32 U/L (0-55); ALBUMIN 3.3 GM/DL (3.2-4.5); ALKALINE PHOSPHATASE 87 U/L (40-136); BILIRUBIN,TOTAL 0.7 MG/DL (0.1-1.0); BUN/CREATININE RATIO 19; CARBON DIOXIDE 20 MMOL/L (21-32); CHLORIDE 105 MMOL/L (98-107); CREATININE SERUM 0.74 MG/DL (0.60-1.30); GFR ESTIMATED > 60; GLUCOSE 255 MG/DL (70-105); POTASSIUM 3.6 MMOL/L (3.6-5.0); SODIUM 137 MMOL/L (135-145); TOTAL PROTEIN 6.6 GM/DL (6.4-8.2)
[2017-11-29 17:13] LABS: CLARITY,URINE CLEAR; COLOR,URINE YELLOW; GLUCOSE, URINE (UA) 4+ (NEGATIVE); KETONES,URINE 4+ (NEGATIVE); LEUKOCYTE ESTERASE ,URINE 1+ (NEGATIVE); NITRITE,URINE NEGATIVE (NEGATIVE); PH,URINE 6 (5-9); PROTEIN,URINE 4+ (NEGATIVE); UROBILINOGEN,URINE 4 MG/DL (NORMAL)
[2017-11-29 17:20] LABS: BACTERIA,URINE TRACE /HPF; BILIRUBIN,URINE 1+ (NEGATIVE); RBC,URINE 0-2 /HPF
--- OUTSIDE RECORDS SUMMARY | 2017-11-29 18:44 | XMS REPORT | Continuity of Care Document ---
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 02/11/2016 LAUREN GRAFF CONTRACT ASSISTANT Ot 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 02/11/2016 LAUREN GRAFF CONTRACT ASSISTANT Ot I69.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 02/17/2016 LAUREN GRAFF CONTRACT ASSISTANT Ot I69.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 02/17/2016 LAUREN GRAFF CONTRACT ASSISTANT Ot 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 11/13/2016 INDY DENT Ot E11.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 2 DIABETES MELLITUS WITH FOOT ULCER 11/13/2016 INDY DENT Ot L97.519 NON-PRS CHRONIC ULCER OTH PRT RIGHT FOOT 11/13/2016 INDY DENT Ot M79.671 PAIN IN RIGHT FOOT 11/13/2016 INDY DENT Ot Z79.4 SENIOR CARE (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 11/13/2016 INDY DENT Ot Z79.82 SNUBBER (CURRENT) USE OF ASPIRIN 11/13/2016 INDY DENT [...] RIGHT FOOT 11/21/2016 INDY DENT Ot Z79.4 SNUBBER (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 11/21/2016 INDY DENT Ot Z79.82 SENIOR CARE (CURRENT) USE OF ASPIRIN 11/21/2016 INDY DENT [...] SMO 11/28/2016 ANMOL NERI MD Ot Z79.4 SNUBBER (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 11/28/2016 ANMOL NERI MD Ot Z79.82 SENIOR CARE (CURRENT) USE OF ASPIRIN 11/28/2016 ANMOL NERI [...] Procedures Code Description [place] [address] A1C (IN-HOUSE) 12/17/2011 20147 A1C (IN-HOUSE) 08/17/2012 35532 CULTURE WOUND (AEROBIC) 06/18/2013 Results Test Result [...] protein measurement (mass/volume) 0.37 mg /dL 0.00-0.50 Complete blood count (CBC) with automated white blood cell (WBC) differential - 11/29/17 16:35 Blood leukocytes automated count (number/volume) 9.7 10*3/uL 4.3-11.0 Blood erythrocytes automated count (number/volume) 5.31 10*6/uL 4.35-5.85 Venous blood hemoglobin measurement (mass/volume) 16.8 g/dL 13.3-17.7 Blood hematocrit (volume fraction) 45 % 40-54 Automated erythrocyte mean corpuscular volume 85 [foz_us] 80-99 Automated erythrocyte mean corpuscular hemoglobin (mass per erythrocyte) 32 pg 25-34 Automated erythrocyte mean corpuscular hemoglobin concentration measurement ( mass/volume) 37 g/dL 32-36 Automated erythrocyte distribution width ratio 13.9 % 10.0-14.5 Automated blood platelet count (count/volume) 177 10*3/uL 130-400 Automated blood platelet mean volume measurement 10.4 [foz_us] 7.4-10.4 Automated blood neutrophils/100 leukocytes 72 % 42-75 Automated blood lymphocytes/100 leukocytes 18 % 12-44 Blood monocytes/100 leukocytes 8 % 0-12 Automated blood eosinophils/100 leukocytes 2 % 0-10 Automated blood basophils/100 leukocytes 1 % 0-10 Blood neutrophils automated count (number/volume) 7.0 10*3 1.8-7.8 Blood lymphocytes automated count (number/volume) 1.7 10*3 1.0-4.0 Blood monocytes automated count (number/volume) 0.8 10*3 0.0-1.0 Automated eosinophil count 0.2 10*3/uL 0.0-0.3 Automated blood basophil count (count/volume) 0.1 10*3/uL 0.0-0.1 Comprehensive metabolic panel - 11/29/17 16:35 Serum or plasma sodium measurement (moles/volume) 137 mmol/L 135-145 Serum or plasma potassium measurement (moles/volume) 3.6 mmol/L 3.6-5.0 Serum or plasma chloride measurement (moles/volume) 105 mmol/L 98-107 Carbon dioxide 20 mmol/L 21-32 Serum or plasma anion gap determination (moles/volume) 12 mmol/L 5-14 Serum or plasma urea nitrogen measurement (mass/volume) 14 mg/dL 7-18 Serum or plasma creatinine measurement (mass/volume) 0.74 mg/dL 0.60-1.30 Serum or plasma urea nitrogen/creatinine mass ratio 19 NRG Serum or plasma creatinine measurement with calculation of estimated glomerular filtration rate > NRG Serum or plasma glucose measurement (mass/volume) 255 mg/dL 70-105 Serum or plasma calcium measurement (mass/volume) 9.0 mg/dL 8.5-10.1 Serum or plasma total bilirubin measurement (mass/volume) 0.7 mg/dL 0.1-1.0 Serum or plasma alkaline phosphatase measurement (enzymatic activity/volume) 87 U/L 40-136 Serum or plasma aspartate aminotransferase measurement (enzymatic activity/ volume) 39 U/L 5-34 Serum or plasma alanine aminotransferase measurement (enzymatic activity/volume ) 32 U/L 0-55 Serum or plasma protein measurement (mass/volume) 6.6 g/dL 6.4-8.2 Serum or plasma albumin measurement (mass/volume) 3.3 g/dL 3.2-4.5 CALCIUM CORRECTED 9.6 mg/dL 8.5-10.1 Serum or plasma lithium measurement (moles/volume) - 11/29/17 16:35 BNP level 173.5 pg/mL <100.0 Serum or plasma troponin i.cardiac measurement (mass/volume) - 11/29/17 16:35 Serum or plasma troponin i.cardiac measurement (mass/volume) 4.28 ng /mL <0.30 Complete urinalysis with reflex to culture - 11/29/17 17:08 Urine color determination YELLOW NRG Urine clarity determination CLEAR NRG Urine pH measurement by test strip 6 5-9 Specific gravity of urine by test strip 1.020 1.016- 1.022 Urine protein assay by test strip, semi-quantitative 4+ NEGATIVE Urine glucose detection by automated test strip 4+ NEGATIVE Erythrocytes detection in urine sediment by light microscopy NEGATIVE NEGATIVE Urine ketones detection by automated test strip 4+ NEGATIVE Urine nitrite detection by test strip NEGATIVE NEGATIVE Urine total bilirubin detection by test strip 1+ NEGATIVE Urine urobilinogen measurement by automated test strip (mass/volume) 4 mg/dL NORMAL Urine leukocyte esterase detection by dipstick 1+ NEGATIVE Automated urine sediment erythrocyte count by microscopy (number/high power field) [HPF] NRG Automated urine sediment leukocyte count by microscopy (number/high power field ) NONE NRG Bacteria detection in urine sediment by light microscopy TRACE NRG Crystals detection in urine sediment by light microscopy NONE NRG Casts detection in urine sediment by light microscopy NONE NRG Mucus detection in urine sediment by light microscopy NEGATIVE NRG Complete urinalysis with reflex to culture NO NRG Encounters ACCT No. Visit Date/Time Discharge Status Pt. Type Provider Facility Loc./Unit Complaint [id number] 01/17/2014 06:56:00 01/17/2014 23:59:59 [facility] Outpatient RIVKA GIL DO [id number] 06/15/2013 15:40:00 06/15/2013 23:59:59 [facility] Outpatient RIVKA GIL DO [id number] 08/17/2012 14:46:00 08/17/2012 23:59:59 [facility] Outpatient KARLEE LEONEJUN [id number] 02/03/2012 13:59:00 02/03/2012 23:59:59 CLS Outpatient KARLEE MCALLISTERJUN Figueroa [id number] 12/17/2011 15:21:00 12/17/2011 23:59:59 CLS Outpatient KARLEE LEONE JUN Blair [id number] 04/13/2012 07:09:00 Document Registration [id number] 12/02/2016 15:06:00 12/02/2016 23:59:59 CLS Outpatient JUN AUGUSTE MD [facility] WOUNDCARE [id number] 11/28/2016 16:33:00 11/28/2016 17:28:00 DIS Emergency ANMOL NERI MD [facility] ER NEEDS INSULIN SHOT [id number] 11/23/2016 13:41:00 11/23/2016 23:59:59 CLS Outpatient JUN AUGUSTE MD [facility] WOUNDCARE [id number] 11/13/2016 13:45:00 11/13/2016 19:32:00 DIS Emergency INDY DENT [facility] ER R FOOT SWELLING [id number] 01/27/2016 13:55:00 02/17/2016 14:04:00 DIS Outpatient LAUREN GRAFF [facility] REHAB R SIDED WEAKNESS; CVA; BALANCE AND WEAKNESS [id number] 01/27/2016 13:51:00 02/17/2016 13:52:00 DIS Outpatient LAUREN GRAFF [facility] REH[facility] CVA; R HEMIPLEGIA [id number] 11/22/2014 15:59:00 11/22/2014 18:36:00 DIS Emergency INDY DENT [facility] ER FALL, L ARM PAIN [id number] 10/27/2014 20:51:00 10/28/2014 00:05:00 DIS Emergency CLAUDIA LAYTON MD [facility] ER [id number] 06/13/2014 08:02:00 06/13/2014 09:16:00 DIS Emergency CALIN GOMEZ, CLAUDIA Marte [facility] ER [id number] 12/05/2013 15:23:00 12/27/2013 14:00:00 DIS Inpatient RUSSELL GOMEZ, ROLY Neves [facility] IRF [id number] 11/20/2013 21:24:00 12/05/2013 16:43:00 DIS Inpatient RIVKA GIL DO [facility] [address] [id number] 10/09/2012 16:31:00 10/09/2012 19:19:00 DIS Emergency SHAHEED NUNEZ DO [facility] ER [id number] 11/29/2017 16:47:00 Document Registration
--- NOTE | 2017-11-29 19:56 | Diagnostic Imaging Report ---
INDICATION: Line placement. COMPARISON: Earlier the same day FINDINGS: Single frontal radiographic view of the chest was obtained and demonstrates interval placement of right internal jugular central venous catheter, tip of which terminates near the cavoatrial junction. No pneumothorax is seen on either side. Additionally, there is no large effusion or focal consolidation. There is diffuse prominence of the interstitium, bilaterally. Cardiac silhouette and pulmonary vasculature also remain prominent. Bony structures show no gross acute abnormalities. IMPRESSION: 1. New right internal jugular central venous catheter as described above. 2. Otherwise stable exam of the chest showing cardiomegaly with pulmonary vascular congestion and probable interstitial pulmonary edema. Dictated by: Dictated on workstation # [id number]
[2017-11-29] MEDS ORDERED: ENOXAPARIN 60 MG/0.6 ML (LOVENOX) SYR SC SCH (20:30)
[2017-11-29] MEDS ORDERED: CATHETER FLUSH 10 ML SYR IV PRN (20:45)
[2017-11-29] MEDS: NS IV 1000 ML 1,000 ML IV SCH (21:13)
--- NOTE | 2017-11-29 21:56 | Consultation-Cardiology ---
HPI-Cardiology Cardiology Consultation Date of Consultation 11/29/17 Date of Admission Time Seen by Provider: 21:51 Indication: Non-ST elevation myocardial infarctions HPI 57 years old gentleman with history of CVA, unable to provide history, his caregiver noted some change in his mental status lately last week, he was brought by ambulance to the emergency room. Unable to provide history. History was obtained by reviewing his records, up in my interview he was able to respond by yes or no, denied any active pain, denied any chest pain, does not have any shortness of breath or palpitation. Unable to communicate fully. Following commands. Home Medications & Allergies Allergies: Coded Allergies: No Known Drug Allergies (Unverified , 10/09/12) Home Medication List Reviewed: Yes KDJ-Sgopdd-Yapzxm Hx Patient Social History Alcohol Use: Denies Use Recreational Drug Use: No Smoking Status: Unknown if Ever Smoked 2nd Hand Smoke Exposure: Yes Recent Foreign Travel: No Recent Infectious Disease Expo: No Recent Hopitalizations: No Immunizations Up To Date Tetanus Booster (TDap): Unknown Date of Pneumonia Vaccine: Nov 24, 2013 Date of Influenza Vaccine: Nov 29, 2013 Past Medical History Past medical history as described below Family Medical History Significant Family History: No Pertinent Family Hx Family History: Cardiovascular disease 19 FATHER 19 MOTHER Diabetes mellitus FH: congestive heart failure FH: prostate cancer Hypertension 19 MOTHER Myocardial infarction Respiratory disorder 19 MOTHER Review of Systems Constitutional: other (Unable to provide review of system, denied any active pain. Has weakness on the right side of his body) Reviewed Test Results Reviewed Test Results Lab Laboratory Tests Test 11/29/17 16:35 11/29/17 17:08 11/29/17 20:47 Range/Units White Blood Count 9.7 4.3-11.0 10^3/uL Red Blood Count 5.31 4.35-5.85 10^6/uL Hemoglobin 16.8 13.3-17.7 G/DL Hematocrit 45 40-54 % Mean Corpuscular Volume 85 80-99 FL Mean Corpuscular Hemoglobin 32 25-34 PG Mean Corpuscular Hemoglobin Concent 37 H 32-36 G/DL Red Cell Distribution Width 13.9 10.0-14.5 % Platelet Count 177 130-400 10^3/uL Mean Platelet Volume 10.4 7.4-10.4 FL Neutrophils (%) (Auto) 72 42-75 % Lymphocytes (%) (Auto) 18 12-44 % Monocytes (%) (Auto) 8 0-12 % Eosinophils (%) (Auto) 2 0-10 % Basophils (%) (Auto) 1 0-10 % Neutrophils # (Auto) 7.0 1.8-7.8 X 10^3 Lymphocytes # (Auto) 1.7 1.0-4.0 X 10^3 Monocytes # (Auto) 0.8 0.0-1.0 X 10^3 Eosinophils # (Auto) 0.2 0.0-0.3 10^3/uL Basophils # (Auto) 0.1 0.0-0.1 10^3/uL Sodium Level 137 135-145 MMOL/L Potassium Level 3.6 3.6-5.0 MMOL/L Chloride Level 105 98-107 MMOL/L Carbon Dioxide Level 20 L 21-32 MMOL/L Anion Gap 12 5-14 MMOL/L Blood Urea Nitrogen 14 7-18 MG/DL Creatinine 0.74 0.60-1.30 MG/DL Estimat Glomerular Filtration Rate > 60 BUN/Creatinine Ratio 19 Glucose Level 255 H 70-105 MG/DL Calcium Level 9.0 8.5-10.1 MG/DL Corrected Calcium 9.6 8.5-10.1 MG/DL Total Bilirubin 0.7 0.1-1.0 MG/DL Aspartate Amino Transf (AST/SGOT) 39 H 5-34 U/L Alanine Aminotransferase (ALT/SGPT) 32 0-55 U/L Alkaline Phosphatase 87 40-136 U/L Troponin I 4.28 *H <0.30 NG/ML B-Type Natriuretic Peptide 173.5 H <100.0 PG/ML Total Protein 6.6 6.4-8.2 GM/DL Albumin 3.3 3.2-4.5 GM/DL Urine Color YELLOW Urine Clarity CLEAR Urine pH 6 5-9 Urine Specific [place] 1.020 1.016-1.022 Urine Protein 4+ NEGATIVE Urine Glucose (UA) 4+ H NEGATIVE Urine Ketones 4+ H NEGATIVE Urine Nitrite NEGATIVE NEGATIVE Urine Bilirubin 1+ H NEGATIVE Urine Urobilinogen 4 H NORMAL MG/DL Urine Leukocyte Esterase 1+ H NEGATIVE Urine RBC (Auto) NEGATIVE NEGATIVE Urine RBC 0-2 /HPF Urine WBC NONE /HPF Urine Crystals NONE /LPF Urine Bacteria TRACE /HPF Urine Casts NONE /LPF Urine Mucus NEGATIVE /LPF Urine Culture Indicated NO Glucometer 211 H 70-110 MG/DL Physical Exam Vital Signs Vital Signs - First Documented 11/29/17 16:25 Temp 98.0 Pulse 98 Resp 19 B/P (MAP) 141/86 (104) Pulse Ox 96 O2 Delivery Room Air Capillary Refill : Less Than 3 Seconds Height, Weight, BMI Height: 5'4.00" Weight: 140lbs. 0.4oz. [id number]; 27.46 BMI Method:Stated General Appearance: No Apparent Distress, WD/WN Eyes: Bilateral Eye Normal Inspection, Bilateral Eye PERRL, Bilateral Eye EOMI HEENT: PERRL/EOMI, TMs Normal, Normal ENT Inspection, Pharynx Normal Neck: Full Range of Motion, Normal Inspection, Non Tender, Supple, Carotid Bruit Respiratory: Chest Non Tender, Lungs Clear, Normal Breath Sounds, No Accessory Muscle Use, No Respiratory Distress Cardiovascular: Regular Rate, Rhythm, No Edema, No Gallop, No JVD, Normal Peripheral Pulses, Systolic Murmur Gastrointestinal: Normal Bowel Sounds, No Organomegaly, No Pulsatile Mass, Non Tender, Soft Back: Normal Inspection Extremity: Normal Capillary Refill, Normal Inspection, Non Tender, No Calf Tenderness, No Pedal Edema, Other (Right hemiplegia) Neurologic/Psychiatric: Alert, Other (Respond by yes or no, and a Holter move his right side) Skin: Normal Color, Warm/Dry Lymphatic: No Adenopathy A/P-Cardiology Admission Diagnosis Non-ST elevation myocardial infarction Coronary artery disease Hypertension Hyperlipidemia Assessment/Plan Non-ST elevation myocardial infarction, could be subacute. Conservative management due to his comorbid condition, started on aspirin and Lovenox. I will start statin and evaluate lipid profile. Hypertension, I'll start low-dose beta blockers and evaluate tolerance and response. History of frontal lobe infarction on the left. Occurred in 2013. Right side hemiplegia. History of tobaccoism, illicit drug use, doubt that he used any drugs since his stroke. Questionable hyperlipidemia, monitor lipids, started on statin History of diabetes mellitus, managed by primary care physician FANTA NICHOLAS MD Nov 29, 2017 21:56
[2017-11-30] VITALS (9 sets, daily range): BP systolic 126–172; BP diastolic 64–99
[2017-11-30] MEDS ORDERED: MULT-1056 PO ×2 (02:18→09:28)
[2017-11-30] MEDS ORDERED: MELA1TAB29 PO ×2 (02:18→09:28)
[2017-11-30] MEDS ORDERED: CYCL10TA9 PO ×2 (02:18→09:28)
[2017-11-30 03:46] LABS: HEMOGLOBIN 14.7 G/DL (13.3-17.7); MEAN PLATELET VOLUME 10.7 FL (7.4-10.4); RED BLOOD COUNT 4.56 10^6/uL (4.35-5.85); RED CELL DISTRIBUTION WIDTH 13.5 % (10.0-14.5); WHITE BLOOD COUNT 8.7 10^3/uL (4.3-11.0)
[2017-11-30 04:07] LABS: ALANINE AMINOTRANSFERASE 25 U/L (0-55); ALKALINE PHOSPHATASE 74 U/L (40-136); BILIRUBIN,TOTAL 0.8 MG/DL (0.1-1.0); BUN/CREATININE RATIO 18; CALCIUM 8.4 MG/DL (8.5-10.1); CARBON DIOXIDE 23 MMOL/L (21-32); CHLORIDE 105 MMOL/L (98-107); CHOLESTEROL 130 MG/DL (< 200); CREATININE SERUM 0.67 MG/DL (0.60-1.30); GFR ESTIMATED > 60; GLUCOSE 168 MG/DL (70-105); HDL CHOLESTEROL 30 MG/DL (40-60); POTASSIUM 3.5 MMOL/L (3.6-5.0); SODIUM 138 MMOL/L (135-145); TOTAL PROTEIN 5.8 GM/DL (6.4-8.2); TRIGLYCERIDES 68 MG/DL (<150); VLDL CHOLESTEROL 14 MG/DL (5-40)
[2017-11-30] MEDS: NS IV 1000 ML 1,000 ML IV SCH ×3 (05:02→21:13)
[2017-11-30] MEDS: OMEGA 3 (FISH OIL) 1000 MG CAP PO SCH ×2 (06:27→16:46)
--- NOTE | 2017-11-30 08:12 | Cardiology Progress Note ---
Subjective Date Seen by Provider: Nov 30, 2017 Time Seen by Provider: 08:09 Subjective/Events-last exam Patient is laying down in bed, denied any pain, unable to provide any further history Review of Systems General: Other (Unable to provide any history or review of system due to his current condition) Objective-Cardiology Exam Last Set of Vital Signs Vital Signs 11/30/17 11/30/17 07:23 07:59 Temp 97.4 Pulse 81 Resp 16 B/P (MAP) 148/87 (107) Pulse Ox 95 O2 Delivery Room Air Capillary Refill : Less Than 3 Seconds I&O Intake and Output 11/30/17 00:00 Intake Total 200 ml Output Total 550 ml Balance -350 ml Intake Oral 200 ml Output Urine Total 550 ml Daily Weight Change Unsure General: Alert, Cooperative HEENT: Atraumatic, PERRLA Neck: Supple, No JVD, No Thyromegaly Lungs: Clear to Auscultation, Normal Air Movement Heart: Regular Rate, Normal S1, Normal S2, No Murmurs Abdomen: Normal Bowel Sounds, Soft, No Tenderness, No Hepatosplenomegaly, No Masses Extremities: No Clubbing, No Cyanosis, No Edema, Normal Pulses, No Tenderness/ Swelling Skin: No Rashes, No Breakdown, No Significant Lesion Neuro: Other (History of large stroke with right hemiplegia) Psych/Mental Status: Other (Unable to communicate other than yes or no) Results Lab Laboratory Tests 11/29/17 16:35 11/30/17 03:10 A/P-Cardiology Admission Diagnosis Non-ST elevation myocardial infarction Coronary artery disease Hypertension Hyperlipidemia Assessment/Plan Non-ST elevation myocardial infarction, probably subacute, continue with conservative management, add Plavix to his current medication, monitor his tolerance. Hypertension, continue on current medication. 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 Right side hemiplegia. History of tobaccoism, illicit drug use, doubt that he used any drugs since his stroke. History of diabetes mellitus, managed by primary care physician Clinical Quality Measures DVT/VTE Risk/Contraindication: Risk Factor Score Per Nursin RFS Level Per Nursing on Admit: 4+=Very High FANTA NICHOLAS MD Nov 30, 2017 08:12
[2017-11-30] MEDS: ASPIRIN 81 MG CHEW (CHILDREN'S ASA) PO SCH (08:32)
[2017-11-30] MEDS: ENOXAPARIN 40 MG/0.4 ML (LOVENOX) SYR SQ SCH (08:51)
[2017-11-30] MEDS: CLOPIDOGREL 75 MG (PLAVIX) TABLET PO SCH (08:51)
[2017-11-30] MEDS ORDERED: INSU100I29 SQ (09:28)
[2017-11-30] MEDS ORDERED: TAMS0.4C2 PO (09:28)
[2017-11-30] MEDS ORDERED: ASPI81TA55 PO (09:28)
[2017-11-30] MEDS ORDERED: PARO20TA5 PO (09:28)
[2017-11-30] MEDS ORDERED: INSU100I14 SC (09:28)
--- NOTE | 2017-11-30 13:39 | History & Physical-Hospitalist ---
History of Present Illness HPI/Chief Complaint The patient is a 57-year-old white male who was brought to the emergency room late yesterday afternoon by ambulance. He was unable to give any history because of his past disability. He suffered a stroke in 2013 with right sided residua and rather severe speech abnormality. His family cares for him at home. Apparently they told EMS that he had been less alert than usual since last Wednesday. It is not clear given that timeframe what triggered his transport yesterday. He is known to be a previous smoker and user of illicit drugs. It is assumed with his disability that this is no longer the case. Workup in the ER included a random troponin which was elevated in the 4 range. Date Seen 11/30/17 Time Seen by a Provider: 13:47 Attending Physician Deni Ni MD PCP Kris Georges MD Referring Physician Date of Admission Nov 29, 2017 at 18:38 Home Medications & Allergies Home Medications Reviewed patient Home Medication Reconciliation performed by pharmacy medication reconciliations veterinary assistant technician and/or nursing. Patients Allergies have been reviewed. Allergies Allergies Coded Allergies No Known Drug Allergies (Unverified10/09/12) Past Ukzeemf-Jegetx-Scsrdp Hx Patient Social History Alcohol Use: Denies Use Recreational Drug Use: No Smoking Status: Unknown if Ever Smoked 2nd Hand Smoke Exposure: Yes Physical Abuse Screen: No Sexual Abuse: No Recent Foreign Travel: No Contact w/other who traveled: No Recent Hopitalizations: Yes Recent Infectious Disease Expo: No Immunizations Up To Date Tetanus Booster (TDap): Unknown Date of Pneumonia Vaccine: Nov 24, 2013 Date of Influenza Vaccine: Nov 29, 2013 Seasonal Allergies Seasonal Allergies: No Past Medical History Neurological: Stroke Reproductive: No Musculoskeletal: Contracture Endocrine: Diabetes, Insulin dep Loss of Vision: Denies Hearing Impairment: Denies History of Blood Disorders: No (PATIENT INCOMPREHENSIBLE) Adverse Reaction to Blood [place]: No (PATIENT INCOMPREHENSIBLE) Family History Cardiovascular disease 19 FATHER 19 MOTHER Diabetes mellitus FH: congestive heart failure FH: prostate cancer Hypertension 19 MOTHER Myocardial infarction Respiratory disorder 19 MOTHER No Pertinent Family Hx Review of Systems Constitutional: see HPI, other (the patient is unable to speak or give any history.) Physical Exam Physical Exam Vital Signs Vital Signs - First Documented 11/29/17 11/29/17 16:25 20:25 Temp 98.0 Pulse 98 Resp 19 B/P (MAP) 141/86 (104) Pulse Ox 96 O2 Delivery Room Air O2 Flow Rate 2.00 Capillary Refill : Less Than 3 Seconds Height, Weight, BMI Height: 5'4.00" Weight: 149lbs. 3.0oz. 67.595578nz; 24.6 BMI Method:Stated General Appearance: Other (sertraline and somnolent) Eyes: Right Eye Normal Inspection HEENT: Normal ENT Inspection Neck: Normal Inspection Respiratory: Chest Non Tender, Lungs Clear, Normal Breath Sounds, No Accessory Muscle Use, No Respiratory Distress Cardiovascular: Regular Rate, Rhythm, No Edema, No Gallop, No JVD, No Murmur, Normal Peripheral Pulses Gastrointestinal: Normal Bowel Sounds, No Organomegaly Extremity: Normal Capillary Refill Neurologic/Psychiatric: Depressed Affect Comments The day today performance of this patient is an definable. It is noted that he appears to have an external rotation of the right leg at the hip as well as a flexion contracture at the knee. Others documented well his inability to speak. Results Results/Procedures Labs Laboratory Tests 11/29/17 16:35 11/30/17 03:10 Patient resulted labs reviewed. Assessment/Plan Admission Diagnosis 1.left frontal lobe infarct 2013 with residual right-sided weakness and minimal speech ability. 2.past history of diabetes. 3.apparent non-STEMI Admission Status: Inpatient Order (span 2 midnights) Reason for Inpatient Admission: Adjustment of medications and clarification of his care needs. Clinical Quality Measures DVT/VTE Risk/Contraindication: Risk Factor Score Per Nursin RFS Level Per Nursing on Admit: 4+=Very High DENI NI MD Nov 30, 2017 13:39
[2017-11-30] MEDS ORDERED: FLU QUADRIvalent (5+ YOA) 2018-2019 (AFLURIA) 0.5 ML IM ONE (15:15)
[2017-11-30] MEDS ORDERED: NON-FORMULARY MEDICATION 1 EA EA (Insulin Aspart (Novolog Flexpen) 12 UNITS) SC SCH (16:00)
[2017-11-30] MEDS: inSUlin ASPART (NovoLOG) 1 UNIT/0.01 ML (CHARGE PER UNIT) SC SCH (16:46)
[2017-11-30] MEDS ORDERED: NON-FORMULARY MEDICATION 1 EA EA (Insulin Detemir (Levemir Flextouch) 25 UNIT) SQ SCH (21:00)
[2017-11-30] MEDS ORDERED: inSUlin DETERMIR 1 UNIT/0.01 ML (LEVEMIR) CHARGE PER UNIT SQ SCH (21:00)
[2017-11-30] MEDS ORDERED: ATORVASTATIN 10 MG (LIPITOR) TABLET PO SCH (21:00)
[2017-11-30] MEDS: CYCLOBENZAPRINE 10 MG (FLEXERIL) TAB PO SCH (21:12)
[2017-12-01 00:09] VITALS: BP 128/66
[2017-12-01 04:38] VITALS: BP 131/69
[2017-12-01] MEDS: OMEGA 3 (FISH OIL) 1000 MG CAP PO SCH ×2 (05:46→17:29)
[2017-12-01] MEDS: NS IV 1000 ML 1,000 ML IV SCH ×2 (05:46→11:42)
[2017-12-01 08:00] VITALS: BP 119/60
[2017-12-01] MEDS: inSUlin ASPART (NovoLOG) 1 UNIT/0.01 ML (CHARGE PER UNIT) SC SCH ×3 (08:36→16:25)
[2017-12-01] MEDS: CLOPIDOGREL 75 MG (PLAVIX) TABLET PO SCH (08:36)
[2017-12-01] MEDS: ENOXAPARIN 40 MG/0.4 ML (LOVENOX) SYR SQ SCH (08:36)
[2017-12-01] MEDS: CYCLOBENZAPRINE 10 MG (FLEXERIL) TAB PO SCH ×2 (08:36→11:42)
[2017-12-01] MEDS: ASPIRIN 81 MG CHEW (CHILDREN'S ASA) PO SCH (08:36)
[2017-12-01] MEDS ORDERED: PARoxetine 20 MG (PAXIL) TAB PO SCH (09:00)
[2017-12-01] MEDS ORDERED: TAMSULOSIN 0.4 MG (FLOMAX) CAP PO SCH (09:00)
[2017-12-01] MEDS ORDERED: OMG1KC PO (10:12)
[2017-12-01] MEDS ORDERED: ATOR10TA66 PO (10:12)
[2017-12-01] MEDS ORDERED: METO-387 PO (10:12)
[2017-12-01] MEDS ORDERED: CLOP75TA28 PO (10:12)
--- NOTE | 2017-12-01 10:14 | Cardiology Progress Note ---
Subjective Date Seen by Provider: Dec 01, 2017 Time Seen by Provider: 10:13 Subjective/Events-last exam Patient is laying down in bed, unable to provide any history. No chest pain was reported Review of Systems General: Other (Unable to provide review of systems) Objective-Cardiology Exam Last Set of Vital Signs Vital Signs 12/01/17 08:00 Temp 97.8 Pulse 69 Resp 16 B/P (MAP) 119/60 (79) Pulse Ox 94 O2 Delivery Room Air Capillary Refill : Less Than 3 Seconds I&O Intake and Output 11/30/17 23:59 Intake Total 1920 ml Output Total 4025 ml Balance -2105 ml Intake Oral 920 ml IV Total 1000 ml Output Urine Total 4025 ml # Bowel Movements 5 General: Alert, Cooperative HEENT: Atraumatic, PERRLA Neck: Supple, No JVD, No Thyromegaly Lungs: Clear to Auscultation, Normal Air Movement Heart: Regular Rate, Normal S1, Normal S2, No Murmurs Abdomen: Normal Bowel Sounds, Soft, No Tenderness, No Hepatosplenomegaly, No Masses Extremities: No Clubbing, No Cyanosis, No Edema, Normal Pulses, No Tenderness/ Swelling Skin: No Rashes, No Breakdown, No Significant Lesion Neuro: Other (History of large stroke with right hemiplegia) Psych/Mental Status: Other (Unable to communicate other than yes or no) Results Lab Laboratory Tests Test 11/30/17 20:58 11/30/17 21:22 11/30/17 21:59 12/01/17 03:56 Range/Units Glucometer 64 L 105 162 H 97 70-110 MG/DL Test 12/01/17 05:27 Range/Units Glucometer 91 70-110 MG/DL A/P-Cardiology Admission Diagnosis Non-ST elevation myocardial infarction Coronary artery disease Hypertension Hyperlipidemia Assessment/Plan Non-ST elevation myocardial infarction, probably subacute, continue with conservative management, discussed with aleida Graves for discharge, continue on aspirin and Plavix, Lipitor and Fish oil as an outpatient Hypertension, continue on current medication. 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 Right side hemiplegia. History of tobaccoism, illicit drug use, doubt that he used any drugs since his stroke. History of diabetes mellitus, managed by primary care physician Clinical Quality Measures DVT/VTE Risk/Contraindication: Risk Factor Score Per Nursin RFS Level Per Nursing on Admit: 4+=Very High FANTA NICHOLAS MD Dec 01, 2017 10:14 am
--- NOTE | 2017-12-01 10:36 | Discharge Summary-Hospitalist ---
ALBERTO MURPHY DO 12/01/17 1036: Diagnosis/Chief Complaint Date of Admission Nov 29, 2017 at 18:38 Date of Discharge Discharge Date: Dec 01, 2017 Admission Diagnosis 1.left frontal lobe infarct 2013 with residual right-sided weakness and minimal speech ability. 2.past history of diabetes. 3.apparent non-STEMI Discharge Summary Discharge Physical Exam Allergies: Coded Allergies: No Known Drug Allergies (Unverified , 10/09/12) Vitals & I&Os Vital Signs Date Time Temp Pulse Resp B/P (MAP) Pulse Ox O2 Delivery O2 Flow Rate FiO2 12/01/17 16:40 98.6 68 22 131/71 (91) 96 Room Air 11/30/17 00:00 2.00 General Appearance: No Apparent Distress, WD/WN, Chronically ill, Other (Non verbal) Respiratory: Chest Non Tender, Lungs Clear, Normal Breath Sounds, No Accessory Muscle Use, No Respiratory Distress Cardiovascular: Regular Rate, Rhythm, No Edema, No Gallop, No JVD, No Murmur, Normal Peripheral Pulses Skin: Normal Color, Warm/Dry Neurologic/Psychiatric: Alert Hospital Course Hospital course: patient had a standard hospital course. Pt admitted for vague symptoms and was found to have NSTEMI. Patient was taken to quality assurance lab technician and stent placed without difficulty. Pt tolerated the procedure well but communication was difficult due to non-verbal due to remote stroke. Pt family stated he sees [facility] but they had not seen him for 5 years so will arrange f/u as requested with [facility]. Labs (last 24 hrs) Laboratory Tests 11/30/17 21:22: Glucometer 105 11/30/17 21:59: Glucometer 162H 12/01/17 03:56: Glucometer 97 12/01/17 05:27: Glucometer 91 12/01/17 11:46: Glucometer 86 12/01/17 16:43: Glucometer 111H Patient resulted labs reviewed. Pending Labs Laboratory Tests 12/01/17 16:43: Glucometer 111 Discussion & Recommendations Discharge Planning: <30 minutes discharge planning Discharge Home Medications: Active Scripts Active Metoprolol Succinate 25 Mg Tab.er.24h 25 Mg PO DAILY Fish Oil 1,000 mg Capsule ([place] 3 Polyunsat Fatty Acids) 1,000 Mg Cap 1,000 Mg PO BID WITH MEALS Atorvastatin Calcium 10 Mg Tablet 10 Mg PO HS Clopidogrel (Clopidogrel Bisulfate) 75 Mg Tablet 75 Mg PO DAILY Reported Cyclobenzaprine HCl 10 Mg Tablet 10 Mg PO TID Novolog Flexpen (Insulin Aspart) 300 Units/3 Ml Solution 12 Units SC TIDAC Men 50 Plus Multivitamin Tab (Multivit-Min/FA/Lycopen/Lutein) 1 Each Tablet 1 Tab PO DAILY Melatonin-Vit B6 3 mg-1 mg Tab (Melatonin/Pyridoxine HCl (B6)) 1 Each Tablet 1 Tab PO HS Paroxetine HCl 20 Mg Tablet 20 Mg PO DAILY Tamsulosin HCl 0.4 Mg Cap.er.24h 0.4 Mg PO DAILY Aspir-Low (Aspirin) 81 Mg Tablet.dr 81 Mg PO DAILY Levemir Flextouch (Insulin Detemir) 100 Unit/1 Ml Insuln.pen 25 Unit SQ HS Instructions to patient/family Please see electronic discharge instructions given to patient. Clinical Quality Measures DVT/VTE Risk/Contraindication: Risk Factor Score Per Nursin RFS Level Per Nursing on Admit: 4+=Very High JIMENA WARNER MEDICAL STUDENT 12/01/17 1419: Diagnosis/Chief Complaint Discharge Time: 11:30 Admission Diagnosis 1. NSTEMI 2. DM 3. 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 (5) Right hemiplegia Status: Chronic (6) Speech and language deficits Status: Chronic (7) History of illicit drug use Status: Chronic (8) History of tobacco use Status: Chronic Discharge Summary Procedures/Consulations Cardiology Discharge Physical Exam Allergies: Coded Allergies: No Known Drug Allergies (Unverified , 10/09/12) General Appearance: WD/WN, Other (Non verbal) Respiratory: Chest Non Tender, Lungs Clear, Normal Breath Sounds, No Accessory Muscle Use, No Respiratory Distress Cardiovascular: Regular Rate, Rhythm, No Edema, No Gallop, No JVD, No Murmur, Normal Peripheral Pulses Skin: Normal Color, Warm/Dry Neurologic/Psychiatric: Alert Hospital Course Radiology Reviewed Date of Exam: 11/29/17 CT HEAD WO PROCEDURE: CT head without contrast. TECHNIQUE: Multiple contiguous axial images were obtained through the brain without the use of intravenous contrast. INDICATION: Altered mental status. COMPARISON: CT head without contrast 11/26/2013. FINDINGS: Examination limited by motion artifact. Chronic infarct in the left frontal lobe. Advanced generalized cerebral and cerebellar parenchymal volume loss. Advanced leukoaraiosis. No CT evidence for territorial infarction. No intracranial hemorrhage, mass effect, hydrocephalus, or extra-axial fluid collection. Moderate mucosal thickening in the partially visualized ethmoid sinuses. The mastoids are clear. Osseous structures are intact. IMPRESSION: 1. Evaluation limited by motion. 2. No acute intracranial CT findings. 3. Large chronic infarct in the left frontal lobe. Imaging: Reviewed Imaging Report Discussion & Recommendations Discharge Planning: <30 minutes discharge planning The patient is a 57-year-old white male who was brought to the emergency room by EMS 11/29 with AMS. He suffered a stroke in 2013 with residual right hemiplegia. He is almost entirely non verbal. His family cares for him at home , and called 911 due to his decreased mental status. He is known to be a previous smoker and user of illicit drugs. It is assumed with his disability that this is no longer the case. Workup in the ER included a random troponin which was elevated in the 4 range. Admitted for NSTEMI. Consult placed to cardiology who felt conservative management appropriate. Agreed for plan to discharge with ASA, plavix, lipitor and fish oil. Hypertension can continue on current medication. F/u planned as outpatient. Patient will be discharged to home where he has multiple family members and care givers. He should reestablish his care with his PCP for continual management of his DM. Discharge Condition at discharge Stable ALBERTO MURPHY DO Dec 01, 2017 10:36 JIMENA WARNER MEDICAL STUDENT Dec 01, 2017 14:19
[2017-12-01 16:40] VITALS: BP 131/71
== END 2017-12-01 17:32 | disposition home or self-care (01) | DRG 281 ==
LOC: EDUNIT# 14:48 → ER 14:49 → ICU 18:38 → 4TH 11-30 11:45
PROVIDERS: ADMIT Internal Medicine; ATTEND Internal Medicine
PROC: 02HV33Z Insertion of Infusion Device into Superior Vena Cava, Percutaneous Approach (ICD-10-PCS; principal; 2017-11-29)
DX: I21.4 Non-ST elevation (NSTEMI) myocardial infarction (principal); I69.351 Hemiplegia and hemiparesis following cerebral infarction affecting right dominant side; I69.828 Other speech and language deficits following other cerebrovascular disease; I69.819 Unspecified symptoms and signs involving cognitive functions following other cerebrovascular disease; I10 Essential (primary) hypertension; F19.90 Other psychoactive substance use, unspecified, uncomplicated; E78.5 Hyperlipidemia, unspecified; E11.9 Type 2 diabetes mellitus without complications; I25.10 Atherosclerotic heart disease of native coronary artery without angina pectoris; Z87.891 Personal history of nicotine dependence; Z79.4 Long term (current) use of insulin; Z23 Encounter for immunization
CPT/HCPCS: 36415; 36556; 51702; 70450; 71045; 80053; 80061; 81000; 82962; 83880; 84484; 85025; 85027; 90686; 93005; 93306

== ENCOUNTER 2017-12-16 21:46 | Emergency (ER) | payer MEDICAID ==
[~2017-12-16] VITALS: Ht 162.6 cm; Wt 69.5 kg
[~2017-12-16 21:46] MED LIST changes: +ASPI81TA55 PO; +ATOR10TA66 PO; +CLOP75TA28 PO; +CYCL10TA9 PO; +INSU100I14 SC; +MELA1TAB29 PO; +METO-387 PO; +MULT-1056 PO; +OMG1KC PO; +PARO20TA5 PO; +TAMS0.4C2 PO
--- OUTSIDE RECORDS SUMMARY | 2017-12-16 21:52 | XMS REPORT | Continuity of Care Document ---
Author Author [facility] Address Unknown Phone Unavailable Allergies Active Description Code Type Severity Reaction Onset Reported/Identified Relationship to Patient Clinical Status Yes No Known Drug Allergies [id number] Drug Allergy Unknown N/A 10/09/2012 Medications There [...] RUSSELL GOMEZ, ROLY E Ot 433.10 12/27/2013 RUSSLEL GOMEZ, ROLY E Ot 433.30 12/27/2013 RUSSELL [...] DENT Ot 729.5 PAIN IN LIMB 11/22/2014 INYD DENT Ot 812.01 FX SURG NCK HUMERUS-CLOS 11/22/2014 INDY DENT Ot E000.8 OTHER EXTERNAL CAUSE STATUS 11/22/2014 INDY DENT Ot E928.9 ACCIDENT NOS 02/04/2016 DAJUAN, LAUREN H QUEBRACHO TANNER Ot 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 02/10/2016 LAUREN GRAFF QUEBR[place] TANNER Ot I69.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 02/11/2016 LAUREN GRAFF [place]BR[place] TANNER Ot 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 02/11/2016 LAUREN GRAFF [place] TANNER Ot I69.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 02/17/2016 LAUREN GRAFF [place]BR[place] TANNER Ot I69.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 02/17/2016 LAUREN GRAFF [place]BR[place] TANNER Ot 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 11/13/2016 INDY DENT Ot E11.621 TYPE 2 DIABETES MELLITUS WITH FOOT ULCER 11/13/2016 INDY DENT Ot L97.519 NON-PRS CHRONIC ULCER OTH PRT RIGHT FOOT 11/13/2016 INDY DENT Ot M79.671 PAIN IN RIGHT FOOT 11/13/2016 INDY DENT Ot Z79.4 SENIOR CARE (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 11/13/2016 INDY DENT Ot Z79.82 BRIEFCASE SEWER (CURRENT) USE OF ASPIRIN 11/13/2016 INDY DENT [...] RIGHT FOOT 11/21/2016 INDY DENT Ot Z79.4 BRIEFCASE SEWER (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 11/21/2016 INDY DENT [...] SMO 11/28/2016 ANMOL NERI MD Ot Z79.4 BRIEFCASE SEWER (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 11/28/2016 ANMOL NERI [...] SEQUELAE OF CEREBRAL INFARCT 12/15/2016 JUN AUGUSTE MD Ot L97.511 NON-PRS CHRONIC ULCER OTH PRT R FOOT REYES 12/01/2017 KEVIN NI MD Ot E11.9 TYPE 2 DIABETES MELLITUS WITHOUT COMPLIC 12/01/2017 KEVIN NI MD Ot E78.5 HYPERLIPIDEMIA, UNSPECIFIED 12/01/2017 KEVIN NI MD Ot F19.90 OTHER PSYCHOACTIVE SUBSTANCE USE, UNSPEC 12/01/2017 KEVIN NI MD Ot I10 ESSENTIAL (PRIMARY) HYPERTENSION 12/01/2017 KEVIN NI MD, Ot I21.4 NON-ST ELEVATION (NSTEMI) MYOCARDIAL INF 12/01/2017 KEVIN NI MD Ot I69.351 HEMIPLGA FOLLOWING CEREBRAL INFRC AFF RI 12/01/2017 KEVIN NI MD, Ot I69.819 UNSP SYMP AND SIGNS W COGN FNCTNS FOL OT 12/01/2017 KEVIN NI MD Ot I69.828 OTH SPEECH/LANG DEFICITS FOLLOWING OTH C 12/01/2017 KEVIN NI MD Ot Z79.4 BRIEFCASE SEWER (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 12/01/2017 KEVIN NI MD Ot Z87.891 PERSONAL HISTORY OF NICOTINE DEPENDENCE 12/01/2017 KEVIN NI MD Ot E11.9 TYPE 2 DIABETES MELLITUS WITHOUT COMPLIC 12/01/2017 KEVIN NI MD, Ot E78.5 HYPERLIPIDEMIA, UNSPECIFIED 12/01/2017 KEVIN NI MD Ot F19.90 OTHER PSYCHOACTIVE SUBSTANCE USE, UNSPEC 12/01/2017 KEVIN NI MD Ot I10 ESSENTIAL (PRIMARY) HYPERTENSION 12/01/2017 KEVIN NI MD Ot I21.4 NON-ST ELEVATION (NSTEMI) MYOCARDIAL INF 12/01/2017 KEVIN NI MD Ot I25.10 ATHSCL HEART DISEASE OF [place] CORONARY 12/01/2017 KEVIN NI MD Ot I69.351 HEMIPLGA FOLLOWING CEREBRAL INFRC AFF RI 12/01/2017 KEVIN NI MD Ot I69.819 UNSP SYMP AND SIGNS W COGN FNCTNS FOL OT 12/01/2017 KEVIN NI MD Ot I69.828 OTH SPEECH/LANG DEFICITS FOLLOWING OTH C 12/01/2017 KEVIN NI MD Ot Z23 ENCOUNTER FOR IMMUNIZATION 12/01/2017 KEVIN NI MD Ot Z79.4 SENIOR CARE (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 12/01/2017 KEVIN NI MD Ot Z87.891 PERSONAL HISTORY OF NICOTINE DEPENDENCE Procedures Code Description [place] [address] A1C (IN-HOUSE) 12/17/2011 13682 A1C (IN-HOUSE) 08/17/2012 71034 CULTURE WOUND (AEROBIC) 06/18/2013 [id number] INSERTION OF INFUSION DEV INTO SUP VENA 11/29/2017 Results Test Result Range Complete blood count [...] urinalysis with reflex to culture NO NRG Capillary blood glucose measurement by glucometer (mass/volume) - 11/29/17 20: 47 Capillary blood glucose measurement by glucometer (mass/volume) 211 mg/dL 70-110 Automated blood complete blood count (hemogram) panel - 11/30/17 03:10 Blood leukocytes automated count (number/volume) 8.7 10*3/uL 4.3-11.0 Blood erythrocytes automated count (number/volume) 4.56 10*6/uL 4.35-5.85 Venous blood hemoglobin measurement (mass/volume) 14.7 g/dL 13.3-17.7 Blood hematocrit (volume fraction) 39 % 40-54 Automated erythrocyte mean corpuscular volume 85 [foz_us] 80-99 Automated erythrocyte mean corpuscular hemoglobin (mass per erythrocyte) 32 pg 25-34 Automated erythrocyte mean corpuscular hemoglobin concentration measurement ( mass/volume) 38 g/dL 32-36 Automated erythrocyte distribution width ratio 13.5 % 10.0-14.5 Automated blood platelet count (count/volume) 186 10*3/uL 130-400 Automated blood platelet mean volume measurement 10.7 [foz_us] 7.4-10.4 Comprehensive metabolic panel - 11/30/17 03:10 Serum or plasma sodium measurement (moles/volume) 138 mmol/L 135-145 Serum or plasma potassium measurement (moles/volume) 3.5 mmol/L 3.6-5.0 Serum or plasma chloride measurement (moles/volume) 105 mmol/L 98-107 Carbon dioxide 23 mmol/L 21-32 Serum or plasma anion gap determination (moles/volume) 10 mmol/L 5-14 Serum or plasma urea nitrogen measurement (mass/volume) 12 mg/dL 7-18 Serum or plasma creatinine measurement (mass/volume) 0.67 mg/dL 0.60-1.30 Serum or plasma urea nitrogen/creatinine mass ratio 18 NRG Serum or plasma creatinine measurement with calculation of estimated glomerular filtration rate > NRG Serum or plasma glucose measurement (mass/volume) 168 mg/dL 70-105 Serum or plasma calcium measurement (mass/volume) 8.4 mg/dL 8.5-10.1 Serum or plasma total bilirubin measurement (mass/volume) 0.8 mg/dL 0.1-1.0 Serum or plasma alkaline phosphatase measurement (enzymatic activity/volume) 74 U/L 40-136 Serum or plasma aspartate aminotransferase measurement (enzymatic activity/ volume) 32 U/L 5-34 Serum or plasma alanine aminotransferase measurement (enzymatic activity/volume ) 25 U/L 0-55 Serum or plasma protein measurement (mass/volume) 5.8 g/dL 6.4-8.2 Serum or plasma albumin measurement (mass/volume) 3.0 g/dL 3.2-4.5 CALCIUM CORRECTED 9.2 mg/dL 8.5-10.1 Serum or plasma troponin i.cardiac measurement (mass/volume) - 11/30/17 03:10 Serum or plasma troponin i.cardiac measurement (mass/volume) 4.84 ng /mL <0.30 Lipid 1996 panel - 11/30/17 03:10 Serum or plasma triglyceride measurement (mass/volume) 68 mg/dL <150 Serum or plasma cholesterol measurement (mass/volume) 130 mg/dL < 200 Serum or plasma cholesterol in HDL measurement (mass/volume) 30 mg/ dL 40-60 Cholesterol in LDL [mass/volume] in serum or plasma by direct assay 89 mg/dL 1-129 Serum or plasma cholesterol in VLDL measurement (mass/volume) 14 mg/ dL 5-40 Capillary blood glucose measurement by glucometer (mass/volume) - 11/30/17 20: 58 Capillary blood glucose measurement by glucometer (mass/volume) 64 mg/dL 70-110 Capillary blood glucose measurement by glucometer (mass/volume) - 11/30/17 21: 22 Capillary blood glucose measurement by glucometer (mass/volume) 105 mg/dL 70-110 Capillary blood glucose measurement by glucometer (mass/volume) - 11/30/17 21: 59 Capillary blood glucose measurement by glucometer (mass/volume) 162 mg/dL 70-110 Capillary blood glucose measurement by glucometer (mass/volume) - 12/01/17 03: 56 Capillary blood glucose measurement by glucometer (mass/volume) 97 mg/dL 70-110 Capillary blood glucose measurement by glucometer (mass/volume) - 12/01/17 05: 27 Capillary blood glucose measurement by glucometer (mass/volume) 91 mg/dL 70-110 Capillary blood glucose measurement by glucometer (mass/volume) - 12/01/17 11: 46 Capillary blood glucose measurement by glucometer (mass/volume) 86 mg/dL 70-110 Capillary blood glucose measurement by glucometer (mass/volume) - 12/01/17 16: 43 Capillary blood glucose measurement by glucometer (mass/volume) 111 mg/dL 70-110 Encounters ACCT No. Visit Date/Time Discharge Status Pt. Type Provider Facility Loc./Unit Complaint [id number] 01/17/2014 06:56:00 01/17/2014 23:59:59 CLS Outpatient RIVKA GIL DO [id number] 06/15/2013 15:40:00 06/15/2013 23:59:59 CLS Outpatient RIVKA GIL DO [id number] 08/17/2012 14:46:00 08/17/2012 23:59:59 CLS Outpatient JUN DESIR APRN [id number] 02/03/2012 13:59:00 02/03/2012 23:59:59 CLS Outpatient JUN DESIR APRN [id number] 12/17/2011 15:21:00 12/17/2011 23:59:59 CLS Outpatient JUN DESIR APRN [id number] 04/13/2012 07:09:00 Document Registration [id number] 11/29/2017 18:38:00 12/01/2017 17:32:00 DIS Outpatient KEVIN NI MD [facility] 4TH NSTEMI [id number] 12/02/2016 15:06:00 12/02/2016 23:59:59 CLS Outpatient JUN AUGUSTE MD [facility] WOUNDCARE [id number] 11/28/2016 16:33:00 11/28/2016 17:28:00 DIS Emergency ANMOL NERI MD [facility] ER NEEDS INSULIN SHOT [id number] 11/23/2016 13:41:00 11/23/2016 23:59:59 CLS Outpatient JUN AUGUSTE MD [facility] WOUNDCARE [id number] 11/13/2016 13:45:00 11/13/2016 19:32:00 DIS Emergency INDY DENT [facility] ER R FOOT SWELLING [id number] 01/27/2016 13:55:00 02/17/2016 14:04:00 DIS Outpatient LAUREN GRAFF [facility] REHAB R SIDED WEAKNESS; CVA; BALANCE AND WEAKNESS [id number] 01/27/2016 13:51:00 02/17/2016 13:52:00 DIS Outpatient LAUREN GRAFF [facility] REHAB CVA; R HEMIPLEGIA [id number] 11/22/2014 15:59:00 11/22/2014 18:36:00 DIS Emergency INDY DENT [facility] ER FALL, L ARM PAIN [id number] 10/27/2014 20:51:00 10/28/2014 00:05:00 DIS Emergency CLAUDIA LAYTON MD [facility] ER [id number] 06/13/2014 08:02:00 06/13/2014 09:16:00 DIS Emergency CLAUDIA LAYTON MD [facility] ER [id number] 12/05/2013 15:23:00 12/27/2013 14:00:00 DIS Inpatient RUSSELL OGMEZ, ROLY Neves [facility] IRF [id number] 11/20/2013 21:24:00 12/05/2013 16:43:00 DIS Inpatient RIVKA GIL DO [facility] 4TH [id number] 10/09/2012 16:31:00 10/09/2012 19:19:00 DIS Emergency SHAHEED NUNEZ DO [facility] ER
[2017-12-16 22:46] LABS: BASOPHILS # (AUTO) 0.1 10^3/uL (0.0-0.1); BASOPHILS % (AUTO) 1 % (0-10); EOSINOPHILS # (AUTO) 0.3 10^3/uL (0.0-0.3); EOSINOPHILS % (AUTO) 4 % (0-10); HEMATOCRIT 41 % (40-54); LYMPHOCYTES # (AUTO) 1.5 X 10^3 (1.0-4.0); LYMPHOCYTES % (AUTO) 17 % (12-44); MEAN CORPUSCULAR HEMOGLOBIN 32 PG (25-34); MEAN CORPUSCULAR HGB CONC 36 G/DL (32-36); MEAN CORPUSCULAR VOLUME 87 FL (80-99); MEAN PLATELET VOLUME 10.4 FL (7.4-10.4); MONOCYTES # (AUTO) 0.7 X 10^3 (0.0-1.0); MONOCYTES % (AUTO) 8 % (0-12); NEUTROPHILS # (AUTO) 6.4 X 10^3 (1.8-7.8); NEUTROPHILS % (AUTO) 71 % (42-75); PLATELET COUNT 192 10^3/uL (130-400); RED BLOOD COUNT 4.76 10^6/uL (4.35-5.85); RED CELL DISTRIBUTION WIDTH 14.4 % (10.0-14.5); WHITE BLOOD COUNT 9.1 10^3/uL (4.3-11.0)
[2017-12-16 22:54] LABS: PROTHROMBIN TIME PATIENT 13.4 SEC (12.2-14.7)
[2017-12-16 23:03] LABS: ALANINE AMINOTRANSFERASE 33 U/L (0-55); ALBUMIN 3.3 GM/DL (3.2-4.5); ALKALINE PHOSPHATASE 80 U/L (40-136); AMYLASE 17 U/L (25-125); BILIRUBIN,TOTAL 0.7 MG/DL (0.1-1.0); BUN/CREATININE RATIO 27; CALCIUM 9.1 MG/DL (8.5-10.1); CARBON DIOXIDE 18 MMOL/L (21-32); CHLORIDE 107 MMOL/L (98-107); CREATININE SERUM 0.86 MG/DL (0.60-1.30); GFR ESTIMATED > 60; GLUCOSE 281 MG/DL (70-105); LIPASE 7 U/L (8-78); MAGNESIUM 1.9 MG/DL (1.8-2.4); POTASSIUM 3.7 MMOL/L (3.6-5.0); SODIUM 139 MMOL/L (135-145); TOTAL PROTEIN 6.3 GM/DL (6.4-8.2)
[2017-12-16 23:10] LABS: MYOGLOBIN SERUM 70.1 NG/ML (10.0-92.0)
[2017-12-17 00:10] LABS: BACTERIA,URINE MODERATE /HPF; BILIRUBIN,URINE 1+ (NEGATIVE); CLARITY,URINE CLEAR; COLOR,URINE AMBER; GLUCOSE, URINE (UA) 4+ (NEGATIVE); KETONES,URINE 2+ (NEGATIVE); LEUKOCYTE ESTERASE ,URINE 1+ (NEGATIVE); NITRITE,URINE NEGATIVE (NEGATIVE); PH,URINE 6 (5-9); PROTEIN,URINE 4+ (NEGATIVE); SQUAMOUS EPITHELIAL CELL,UR 0-2 /HPF; UROBILINOGEN,URINE 8 MG/DL (NORMAL)
[2017-12-17] MEDS ORDERED: NS IV 1000 ML 1,000 ML IV ONE (00:33)
[2017-12-17] MEDS ORDERED: cefTRIAXone FOR IV USE 1,000 MG in NS (IVPB) 50 ML IV ONE (00:45)
[2017-12-17] MEDS ORDERED: SULF1TAB35 PO (00:55)
--- NOTE | 2017-12-17 00:55 | ED General ---
General Chief Complaint: General Problems/Pain Stated Complaint: GENERAL COMPLAINTS Allergies and Home Medications Allergies Coded Allergies: No Known Drug Allergies (Unverified , 10/09/12) Home Medications Aspirin 81 Mg Tablet.dr, 81 MG PO DAILY, (Reported) Atorvastatin Calcium 10 Mg Tablet, 10 MG PO HS Prescribed by: FANTA NICHOLAS on 12/01/17 1012 Clopidogrel Bisulfate 75 Mg Tablet, 75 MG PO DAILY Prescribed by: FANTA NICHOLAS on 12/01/17 1012 Cyclobenzaprine HCl 10 Mg Tablet, 10 MG PO TID, (Reported) Insulin Aspart 300 Units/3 Ml Solution, 12 UNITS SC TIDAC, (Reported) Insulin Detemir 100 Unit/1 Ml Insuln.pen, 25 UNIT SQ HS, (Reported) Melatonin/Pyridoxine HCl (B6) 1 Each Tablet, 1 TAB PO HS, (Reported) Metoprolol Succinate 25 Mg Tab.er.24h, 25 MG PO DAILY Prescribed by: FANTA NICHOLAS on 12/01/17 1012 Multivit-Min/FA/Lycopen/Lutein 1 Each Tablet, 1 TAB PO DAILY, (Reported) Crawford 3 Polyunsat Fatty Acids 1,000 Mg Cap, 1,000 MG PO BID WITH MEALS Prescribed by: FANTA NICHOLAS on 12/01/17 1012 Paroxetine HCl 20 Mg Tablet, 20 MG PO DAILY, (Reported) Tamsulosin HCl 0.4 Mg Cap.er.24h, 0.4 MG PO DAILY, (Reported) Past Ovojdgb-Nszqwy-Zlzmbq Hx Patient Social History 2nd Hand Smoke Exposure: Yes Recent Hopitalizations: Yes Immunizations Up To Date Tetanus Booster (TDap): Unknown Date of Pneumonia Vaccine: Nov 24, 2013 Date of Influenza Vaccine: Nov 29, 2013 Seasonal Allergies Seasonal Allergies: No Past Medical History Surgeries: Yes Respiratory: No (PATIENT INCOMPREHENSIBLE) Cardiac: No (PATIENT INCOMPREHENSIBLE) Neurological: Yes Stroke Reproductive Disorders: No Genitourinary: No (PATIENT INCOMPREHENSIBLE) Gastrointestinal: No (PATIENT INCOMPREHENSIBLE) Musculoskeletal: Yes (PATIENT INCOMPREHENSIBLE) Contracture Endocrine: Yes Diabetes, Insulin dep HEENT: No (PATIENT INCOMPREHENSIBLE) Loss of Vision: Denies Hearing Impairment: Denies Cancer: No (PATIENT INCOMPREHENSIBLE) Psychosocial: No (PATIENT INCOMPREHENSIBLE) Integumentary: No (PATIENT INCOMPREHENSIBLE) Blood Disorders: No (PATIENT INCOMPREHENSIBLE) Adverse Reaction/Blood Tranf: No (PATIENT INCOMPREHENSIBLE) Family Medical History Cardiovascular disease 19 FATHER 19 MOTHER Diabetes mellitus FH: congestive heart failure FH: prostate cancer Hypertension 19 MOTHER Myocardial infarction Respiratory disorder 19 MOTHER No Pertinent Family Hx Physical Exam Vital Signs Capillary Refill : Height, Weight, BMI Height: 5'4.00" Weight: 153lbs. 3.0oz. [id number]; 24.6 BMI Method:Stated Progress/Results/Core Measures Suspected Sepsis SIRS Temperature: Pulse: Respiratory Rate: Laboratory Tests 12/16/17 22:36: White Blood Count 9.1 Blood Pressure / Mean: Laboratory Tests 12/16/17 22:36: Creatinine 0.86, INR Comment 1.0, Platelet Count 192, Total Bilirubin 0.7 Results/Orders Lab Results Laboratory Tests Test 12/16/17 22:08 12/16/17 22:36 12/16/17 23:33 12/17/17 00:01 Range/Units Glucometer 275 H 70-110 MG/DL White Blood Count 9.1 4.3-11.0 10^3/uL Red Blood Count 4.76 4.35-5.85 10^6/uL Hemoglobin 15.0 13.3-17.7 G/DL Hematocrit 41 40-54 % Mean Corpuscular Volume 87 80-99 FL Mean Corpuscular Hemoglobin 32 25-34 PG Mean Corpuscular Hemoglobin Concent 36 32-36 G/DL Red Cell Distribution Width 14.4 10.0-14.5 % Platelet Count 192 130-400 10^3/uL Mean Platelet Volume 10.4 7.4-10.4 FL Neutrophils (%) (Auto) 71 42-75 % Lymphocytes (%) (Auto) 17 12-44 % Monocytes (%) (Auto) 8 0-12 % Eosinophils (%) (Auto) 4 0-10 % Basophils (%) (Auto) 1 0-10 % Neutrophils # (Auto) 6.4 1.8-7.8 X 10^3 Lymphocytes # (Auto) 1.5 1.0-4.0 X 10^3 Monocytes # (Auto) 0.7 0.0-1.0 X 10^3 Eosinophils # (Auto) 0.3 0.0-0.3 10^3/uL Basophils # (Auto) 0.1 0.0-0.1 10^3/uL Prothrombin Time 13.4 12.2-14.7 SEC INR Comment 1.0 0.8-1.4 Activated Partial Thromboplast Time 26 24-35 SEC Sodium Level 139 135-145 MMOL/L Potassium Level 3.7 3.6-5.0 MMOL/L Chloride Level 107 98-107 MMOL/L Carbon Dioxide Level 18 L 21-32 MMOL/L Anion Gap 14 5-14 MMOL/L Blood Urea Nitrogen 23 H 7-18 MG/DL Creatinine 0.86 0.60-1.30 MG/DL Estimat Glomerular Filtration Rate > 60 BUN/Creatinine Ratio 27 Glucose Level 281 H 70-105 MG/DL Calcium Level 9.1 8.5-10.1 MG/DL Corrected Calcium 9.7 8.5-10.1 MG/DL Magnesium Level 1.9 1.8-2.4 MG/DL Total Bilirubin 0.7 0.1-1.0 MG/DL Aspartate Amino Transf (AST/SGOT) 25 5-34 U/L Alanine Aminotransferase (ALT/SGPT) 33 0-55 U/L Alkaline Phosphatase 80 40-136 U/L Myoglobin 70.1 10.0-92.0 NG/ML Troponin I < 0.30 <0.30 NG/ML B-Type Natriuretic Peptide 165.7 H <100.0 PG/ML Total Protein 6.3 L 6.4-8.2 GM/DL Albumin 3.3 3.2-4.5 GM/DL Amylase Level 17 L 25-125 U/L Lipase 7 L 8-78 U/L TSH Gilbert Testing 0.70 0.35-4.94 UIU/ML Serum Alcohol < 10 <10 MG/DL Urine Color GURWINDER H Urine Clarity CLEAR Urine pH 6 5-9 Urine Specific Lynn 1.020 1.016-1.022 Urine Protein 4+ NEGATIVE Urine Glucose (UA) 4+ H NEGATIVE Urine Ketones 2+ H NEGATIVE Urine Nitrite NEGATIVE NEGATIVE Urine Bilirubin 1+ H NEGATIVE Urine Urobilinogen 8 H NORMAL MG/DL Urine Leukocyte Esterase 1+ H NEGATIVE Urine RBC (Auto) 1+ H NEGATIVE Urine RBC 2-5 H /HPF Urine WBC 10-25 H /HPF Urine Squamous Epithelial Cells 0-2 /HPF Urine Crystals NONE /LPF Urine Bacteria MODERATE H /HPF Urine Casts NONE /LPF Urine Mucus NEGATIVE /LPF Urine Culture Indicated YES Micro Results Microbiology 12/16/17 Influenza Types A,B Antigen (KADE) - Final, Complete My Orders Orders - SHAHEED NUNEZ DO Cbc With Automated Diff (12/16/17 22:13) Magnesium (12/16/17 22:13) Chest 1 View, Ap/Pa Only (12/16/17 22:13) Ekg Tracing (12/16/17 22:13) Cardiac Profile 1 (12/16/17 22:) Comprehensive Metabolic Panel (12/16/17 22:) Myoglobin Serum (12/16/17 22:) Protime With Inr (12/16/17:) Partial Thromboplastin Time (12/16/17:) O2 (12/16/17:) Monitor-Rhythm Ecg Trace Only (12/16/17:) Lipid Panel (12/17/17 06:00) Saline Lock/Iv-Start (12/16/17 22:13) Lipase (12/16/17 22:13) Amylase (12/16/17 22:13) BNP (12/16/17 22:13) Alcohol (12/16/17 22:13) Thyroid Analyzer (12/16/17 22:13) Influenza A And B Antigens (12/16/17 22:) Urinalysis (12/16/17 23:33) Ct Head Wo-R/O Stroke (12/17/17 00:01) Urine Culture (12/16/17 23:33) Drug Screen Stat (Urine) (12/17/17 00:20) Ceftriaxone For Iv Use (Rocephin For I (12/17/17 00:45) Saline Lock/Iv-Start (12/17/17 00:33) Ns Iv 1000 Ml (Sodium Chloride 0.9%) (12/17/17 00:33) Vital Signs/I&O Capillary Refill : Departure Impression Primary Impression: Urinary tract infection Disposition: 01 HOME, SELF-CARE Condition: Stable Departure-Patient Inst. Referrals: CHRISTIANO VELEZ MD (PCP/Family) Primary Care Physician Patient Instructions: Urinary Tract Infection, Adult (DC) Add. Discharge Instructions: CONTINUE YOUR REGULAR MEDICATIONS PRESCRIBED FOLLOW UP WITH YOUR DR IN 2-3 DAYS FOR FURTHER CARE RETURN TO ER IF WORSE All discharge instructions reviewed with patient and/or family. Voiced understanding. Scripts Sulfamethoxazole/Trimethoprim (Bactrim Ds Tablet) 1 Each Tablet 1 EACH PO BID, #20 TAB Prov: SHAHEED NUNEZ DO 12/17/17 SHAHEED NUNEZ DO Dec 17, 2017 00:55
[2017-12-17 02:25] VITALS: BP 148/80
--- NOTE | 2017-12-17 05:30 | Diagnostic Imaging Report ---
INDICATION: Lower respiratory infection Portable chest 10:39 PM Heart size and pulmonary vascularity are normal. Lungs are clear. There are no effusions or pneumothoraces. IMPRESSION: Negative chest Dictated by: Dictated on workstation # [id number]
--- NOTE | 2017-12-17 06:25 | Diagnostic Imaging Report ---
INDICATION: Altered mental status CT head without contrast There is a large area of encephalomalacia in the left middle cerebral artery vascular territory consistent with old infarct. There is also some decreased density in the centrum semiovale of the right periventricular white matter. Both of these findings were present on a prior study from 11/29/2017. There are no masses or hemorrhages. IMPRESSION: Old ischemic injury. No CT evidence for an acute infarct. I agree with preliminary interpretation. Dictated by: Dictated on workstation # [id number]
== END 2017-12-17 02:30 | disposition home or self-care (01) ==
LOC: EDUNIT# 21:46 → ER 21:47
DX: N39.0 Urinary tract infection, site not specified (principal); E11.9 Type 2 diabetes mellitus without complications; Z82.49 Family history of ischemic heart disease and other diseases of the circulatory system; Z80.42 Family history of malignant neoplasm of prostate; Z79.82 Long term (current) use of aspirin; Z79.4 Long term (current) use of insulin; Z77.22 Contact with and (suspected) exposure to environmental tobacco smoke (acute) (chronic); Z86.73 Personal history of transient ischemic attack (TIA), and cerebral infarction without residual deficits
CPT/HCPCS: 36415; 70450; 71045; 80053; 80306; 80320; 81000; 82150; 82962; 83690; 83735; 83874; 83880; 84443; 84484; 85025; 85610; 85730; 87088; 87804; 93005; 93041

== ENCOUNTER 2017-12-24 22:08 | Inpatient (IN) | payer MEDICAID ==
[~2017-12-24] VITALS: Ht 162.6 cm; Wt 69.5 kg
--- OUTSIDE RECORDS SUMMARY | 2017-12-24 22:14 | XMS REPORT | Continuity of Care Document ---
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 02/10/2016 LAUREN GRAFF ELECTRONIC ENGINEERING TECHNICIAN Ot I69.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 02/11/2016 LAUREN GRAFF ELECTRONIC ENGINEERING TECHNICIAN Ot 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 02/11/2016 LAUREN GRAFF ELECTRONIC ENGINEERING TECHNICIAN Ot I69.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 02/17/2016 LAUREN GRAFF ELECTRONIC ENGINEERING TECHNICIAN Ot I69.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 02/17/2016 LAUREN GRAFF ELECTRONIC ENGINEERING TECHNICIAN Ot 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 11/13/2016 INDY DENT Ot E11.621 TYPE 2 DIABETES MELLITUS WITH FOOT ULCER 11/13/2016 INDY DENT Ot L97.519 NON-PRS CHRONIC ULCER OTH PRT RIGHT FOOT 11/13/2016 INDY DENT Ot M79.671 PAIN IN RIGHT FOOT 11/13/2016 INDY DENT Ot Z79.4 INTERMEDIATE (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 11/13/2016 INDY DENT Ot 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 11/13/2016 INDY DENT [...] RIGHT FOOT 11/21/2016 INDY DENT Ot Z79.4 NURSING ASSISTANTS TEACHER (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 11/21/2016 INDY DENT Ot Z79.82 INTERMEDIATE (CURRENT) USE OF ASPIRIN 11/21/2016 INDY DENT [...] SMO 11/28/2016 ANMOL NERI MD Ot Z79.4 NURSING ASSISTANTS TEACHER (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 11/28/2016 ANMOL NERI MD Ot Z79.82 INTERMEDIATE (CURRENT) USE OF ASPIRIN 11/28/2016 ANMOL NERI [...] C 12/01/2017 KEVIN NI MD Ot Z79.4 NURSING ASSISTANTS TEACHER (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 12/01/2017 KEVIN NI [...] MD Ot I25.10 ATHSCL HEART DISEASE OF [place] CORONARY 12/01/2017 KEVIN NI MD Ot I69.351 HEMIPLGA FOLLOWING CEREBRAL INFRC AFF RI 12/01/2017 KEVIN NI MD Ot I69.819 UNSP SYMP AND SIGNS W COGN FNCTNS FOL OT 12/01/2017 KEVIN NI MD Ot I69.828 OTH SPEECH/LANG DEFICITS FOLLOWING OTH C 12/01/2017 KEVIN NI MD Ot Z23 ENCOUNTER FOR IMMUNIZATION 12/01/2017 KEVIN NI MD Ot Z79.4 INTERMEDIATE (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 12/01/2017 KEVIN NI MD Ot Z87.891 PERSONAL HISTORY OF NICOTINE DEPENDENCE Procedures Code [place] [address] A1C (IN-HOUSE) 12/17/2011 06354 A1C (IN-HOUSE) 08/17/2012 91007 CULTURE WOUND (AEROBIC) 06/18/2013 [id number] INSERTION OF INFUSION DEV INTO SUP VENA [...] measurement by glucometer (mass/volume) 111 mg/dL 70-110 Capillary blood glucose measurement by glucometer (mass/volume) - 12/16/17 22: 08 Capillary blood glucose measurement by glucometer (mass/volume) 275 mg/dL 70-110 Influenza virus A and B antigen detection - 12/16/17 22:20 FLU RESULT NEGATIVE FOR INFLUENZA A AND B ANTIGENS BY IA [facility] Comprehensive metabolic panel - 12/16/17 22:36 Serum or plasma sodium measurement (moles/volume) 139 mmol/L 135-145 Serum or plasma potassium measurement (moles/volume) 3.7 mmol/L 3.6-5.0 Serum or plasma chloride measurement (moles/volume) 107 mmol/L 98-107 Carbon dioxide 18 mmol/L 21-32 Serum or plasma anion gap determination (moles/volume) 14 mmol/L 5-14 Serum or plasma urea nitrogen measurement (mass/volume) 23 mg/dL 7-18 Serum or plasma creatinine measurement (mass/volume) 0.86 mg/dL 0.60-1.30 Serum or plasma urea nitrogen/creatinine mass ratio 27 [facility] Serum or plasma creatinine measurement with calculation of estimated glomerular filtration rate > [facility] Serum or plasma glucose measurement (mass/volume) 281 mg/dL 70-105 Serum or plasma calcium measurement (mass/volume) 9.1 mg/dL 8.5-10.1 Serum or plasma total bilirubin measurement (mass/volume) 0.7 mg/dL 0.1-1.0 Serum or plasma alkaline phosphatase measurement (enzymatic activity/volume) 80 U/L 40-136 Serum or plasma aspartate aminotransferase measurement (enzymatic activity/ volume) 25 U/L 5-34 Serum or plasma alanine aminotransferase measurement (enzymatic activity/volume ) 33 U/L 0-55 Serum or plasma protein measurement (mass/volume) 6.3 g/dL 6.4-8.2 Serum or plasma albumin measurement (mass/volume) 3.3 g/dL 3.2-4.5 CALCIUM CORRECTED 9.7 mg/dL 8.5-10.1 Magnesium - 12/16/17 22:36 Magnesium 1.9 mg/dL 1.8-2.4 Serum or plasma troponin i.cardiac measurement (mass/volume) - 12/16/17 22:36 Serum or plasma troponin i.cardiac measurement (mass/volume) < ng/ mL <0.30 Myoglobin, serum - 12/16/17 22:36 Myoglobin, serum 70.1 ng/mL 10.0-92.0 Serum or plasma amylase measurement (enzymatic activity/volume) - 12/16/17 22: 36 Serum or plasma amylase measurement (enzymatic activity/volume) 17 U /L 25-125 Lipase - 12/16/17 22:36 Lipase 7 U/L 8-78 PT panel in platelet poor plasma by coagulation assay - 12/16/17 22:36 Prothrombin time (PT) in platelet poor plasma by coagulation assay 13.4 s 12.2-14.7 INR in platelet poor plasma or blood by coagulation assay 1.0 0.8-1.4 Activated partial thromboplastin time (aPTT) in platelet poor plasma bycoagulation assay - 12/16/17 22:36 Activated partial thromboplastin time (aPTT) in platelet poor plasma bycoagulation assay 26 s 24-35 Complete blood count (CBC) with automated white blood cell (WBC) differential - 12/16/17 22:36 Blood leukocytes automated count (number/volume) 9.1 10*3/uL 4.3-11.0 Blood erythrocytes automated count (number/volume) 4.76 10*6/uL 4.35-5.85 Venous blood hemoglobin measurement (mass/volume) 15.0 g/dL 13.3-17.7 Blood hematocrit (volume fraction) 41 % 40-54 Automated erythrocyte mean corpuscular volume 87 [foz_us] 80-99 Automated erythrocyte mean corpuscular hemoglobin (mass per erythrocyte) 32 pg 25-34 Automated erythrocyte mean corpuscular hemoglobin concentration measurement ( mass/volume) 36 g/dL 32-36 Automated erythrocyte distribution width ratio 14.4 % 10.0-14.5 Automated blood platelet count (count/volume) 192 10*3/uL 130-400 Automated blood platelet mean volume measurement 10.4 [foz_us] 7.4-10.4 Automated blood neutrophils/100 leukocytes 71 % 42-75 Automated blood lymphocytes/100 leukocytes 17 % 12-44 Blood monocytes/100 leukocytes 8 % 0-12 Automated blood eosinophils/100 leukocytes 4 % 0-10 Automated blood basophils/100 leukocytes 1 % 0-10 Blood neutrophils automated count (number/volume) 6.4 10*3 1.8-7.8 Blood lymphocytes automated count (number/volume) 1.5 10*3 1.0-4.0 Blood monocytes automated count (number/volume) 0.7 10*3 0.0-1.0 Automated eosinophil count 0.3 10*3/uL 0.0-0.3 Automated blood basophil count (count/volume) 0.1 10*3/uL 0.0-0.1 Serum or plasma lithium measurement (moles/volume) - 12/16/17 22:36 BNP level 165.7 pg/mL <100.0 Serum or plasma thyrotropin measurement by detection limit <=0.05 miu/l (units/ volume) - 12/16/17 22:36 Serum or plasma thyrotropin measurement by detection limit <=0.05 miu/l (units/ volume) 0.70 u[iU]/mL 0.35-4.94 Serum or plasma ethanol measurement (mass/volume) - 12/16/17 22:36 Serum or plasma ethanol measurement (mass/volume) < mg/dL <10 Complete urinalysis with reflex to culture - 12/16/17 22:47 Urine color determination YELLOW NRG Urine clarity determination CLEAR NRG Urine pH measurement by test strip 7 5-9 Specific gravity of urine by test strip 1.010 1.016- 1.022 Urine protein assay by test strip, semi-quantitative NEGATIVE NEGATIVE Urine glucose detection by automated test strip NEGATIVE NEGATIVE Erythrocytes detection in urine sediment by light microscopy NEGATIVE NEGATIVE Urine ketones detection by automated test strip NEGATIVE NEGATIVE Urine nitrite detection by test strip NEGATIVE NEGATIVE Urine total bilirubin detection by test strip NEGATIVE NEGATIVE Urine urobilinogen measurement by automated test strip (mass/volume) NORMAL NORMAL Urine leukocyte esterase detection by dipstick 3+ NEGATIVE Automated urine sediment erythrocyte count by microscopy (number/high power field) NONE NRG Automated urine sediment leukocyte count by microscopy (number/high power field ) [HPF] NRG Bacteria detection in urine sediment by light microscopy MODERATE NRG Squamous epithelial cells detection in urine sediment by light microscopy 2-5 NRG Crystals detection in urine sediment by light microscopy NONE NRG Casts detection in urine sediment by light microscopy NONE NRG Mucus detection in urine sediment by light microscopy NEGATIVE NRG Complete urinalysis with reflex to culture NO NRG Urine drug screening test - 12/16/17 22:47 Urine phencyclidine detection by screening method NEGATIVE NEGATIVE Urine benzodiazepines detection by screening method NEGATIVE NEGATIVE Urine cocaine detection NEGATIVE NEGATIVE Urine amphetamines detection by screening method NEGATIVE NEGATIVE Urine methamphetamine detection by screening method NEGATIVE NEGATIVE Urine cannabinoids detection by screening method NEGATIVE NEGATIVE Urine opiates detection by screening method NEGATIVE NEGATIVE Urine barbiturates detection NEGATIVE NEGATIVE Screening urine tricyclic antidepressants detection NEGATIVE NEGATIVE Urine methadone detection by screening method NEGATIVE NEGATIVE Urine oxycodone detection NEGATIVE NEGATIVE Urine propoxyphene detection NEGATIVE NEGATIVE Complete urinalysis with reflex to culture - 12/16/17 23:33 Urine color determination GURWINDER NRG Urine clarity determination CLEAR NRG Urine pH measurement by test strip 6 5-9 Specific gravity of urine by test strip 1.020 1.016- 1.022 Urine protein assay by test strip, semi-quantitative 4+ NEGATIVE Urine glucose detection by automated test strip 4+ NEGATIVE Erythrocytes detection in urine sediment by light microscopy 1+ NEGATIVE Urine ketones detection by automated test strip 2+ NEGATIVE Urine nitrite detection by test strip NEGATIVE NEGATIVE Urine total bilirubin detection by test strip 1+ NEGATIVE Urine urobilinogen measurement by automated test strip (mass/volume) 8 mg/dL NORMAL Urine leukocyte esterase detection by dipstick 1+ NEGATIVE Automated urine sediment erythrocyte count by microscopy (number/high power field) [HPF] NRG Automated urine sediment leukocyte count by microscopy (number/high power field ) [HPF] NRG Bacteria detection in urine sediment by light microscopy MODERATE NRG Squamous epithelial cells detection in urine sediment by light microscopy 0-2 NRG Crystals detection in urine sediment by light microscopy NONE NRG Casts detection in urine sediment by light microscopy NONE NRG Mucus detection in urine sediment by light microscopy NEGATIVE NRG Complete urinalysis with reflex to culture YES NRG Bacterial urine culture - 12/16/17 23:33 Bacterial urine culture NG NRG Encounters ACCT No. Visit Date/Time Discharge Status Pt. Type Provider Facility Loc./Unit Complaint [id number] 01/17/2014 06:56:00 01/17/2014 23:59:59 [facility] Outpatient RIVKA GIL DO [id number] 06/15/2013 15:40:00 06/15/2013 23:59:59 [facility] Outpatient RIVKA GIL DO [id number] 08/17/2012 14:46:00 08/17/2012 23:59:59 [facility] Outpatient JUN DESIR APRN [id number] 02/03/2012 13:59:00 02/03/2012 23:59:59 [facility] Outpatient JUN DESIR APRN [id number] 12/17/2011 15:21:00 12/17/2011 23:59:59 [facility] Outpatient KARLEE LEONE JUN Blair [id number] 04/13/2012 07:09:00 Document Registration [id number] 12/16/2017 21:47:00 12/17/2017 02:30:00 DIS Emergency SHAHEED NUNEZ DO [facility] ER GENERAL COMPLAINTS [id number] 11/29/2017 18:38:00 12/01/2017 17:32:00 DIS Outpatient KEVIN NI MD [facility] 4TH NSTEMI [id number] 12/02/2016 15:06:00 12/02/2016 23:59:59 CLS Outpatient JUN AUGUSTE MD [facility] WOUNDCARE [id number] 11/28/2016 16:33:00 11/28/2016 17:28:00 DIS Emergency ANMOL NERI MD [facility] ER NEEDS INSULIN SHOT [id number] 11/23/2016 13:41:00 11/23/2016 23:59:59 CLS Outpatient JUN AUGUSTE MD [facility] WOUNDCARE [id number] 11/13/2016 13:45:00 11/13/2016 19:32:00 DIS Emergency INDY DENT [facility] ER R FOOT SWELLING [id number] 01/27/2016 13:55:00 02/17/2016 14:04:00 DIS Outpatient LAUREN GRAFF [facility] REHAB R SIDED WEAKNESS; CVA; BALANCE AND WEAKNESS [id number] 01/27/2016 13:51:00 02/17/2016 13:52:00 DIS Outpatient LAUREN GRAFF [facility] REHAB CVA; R HEMIPLEGIA [id number] 11/22/2014 15:59:00 11/22/2014 18:36:00 DIS Emergency INDY DENT [facility] ER FALL, L ARM PAIN [id number] 10/27/2014 20:51:00 10/28/2014 00:05:00 DIS Emergency CLAUDIA LAYTON MD [facility] ER [id number] 06/13/2014 08:02:00 06/13/2014 09:16:00 DIS Emergency CALIN GOMEZ, CLAUDIA Marte [facility] ER [id number] 12/05/2013 15:23:00 12/27/2013 14:00:00 DIS Inpatient RUSSELL GOMEZ, ROLY Neves [facility] IRF [id number] 11/20/2013 21:24:00 12/05/2013 16:43:00 DIS Inpatient RIVKA GIL DO [address] [id number] 10/09/2012 16:31:00 10/09/2012 19:19:00 DIS Emergency SHAHEED NUNEZ DO [facility] ER
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
[2017-12-25 01:02] LABS: BILIRUBIN,URINE NEGATIVE (NEGATIVE); COLOR,URINE AMBER; GLUCOSE, URINE (UA) 4+ (NEGATIVE); KETONES,URINE NEGATIVE (NEGATIVE); LEUKOCYTE ESTERASE ,URINE NEGATIVE (NEGATIVE); NITRITE,URINE NEGATIVE (NEGATIVE); PH,URINE 5 (5-9); PROTEIN,URINE 3+ (NEGATIVE); UROBILINOGEN,URINE 4 MG/DL (NORMAL)
[2017-12-25 01:11] LABS: BACTERIA,URINE TRACE /HPF; CLARITY,URINE SLIGHTLY CLOUDY; HYALINE CASTS, URINE 0-2 /LPF; RBC,URINE 0-2 /HPF; WBC,URINE RARE /HPF
[2017-12-25 01:13] LABS: AMPHETAMINE SCREEN, URINE NEGATIVE (NEGATIVE); BENZODIAZEPINES SCREEN URINE NEGATIVE (NEGATIVE); COCAINE SCREEN URINE NEGATIVE (NEGATIVE); METHAMPHETAMINE SCREEN URINE S NEGATIVE (NEGATIVE)
[2017-12-25 01:14] LABS: BARBITURATE SCREEN URINE NEGATIVE (NEGATIVE); CANNABINOID SCREEN, URINE NEGATIVE (NEGATIVE); METHADONE STAT NEGATIVE (NEGATIVE); OPIATE SCREEN URINE NEGATIVE (NEGATIVE); OXYCODONE STAT NEGATIVE (NEGATIVE); PROPOXYPHENE STAT NEGATIVE (NEGATIVE); TRICYCLIC ANTIDEPRESSANTS SCRE POSITIVE (NEGATIVE)
[2017-12-25 02:22] LABS: BASOPHILS # (AUTO) 0.1 10^3/uL (0.0-0.1); BASOPHILS % (AUTO) 1 % (0-10); EOSINOPHILS # (AUTO) 0.4 10^3/uL (0.0-0.3); EOSINOPHILS % (AUTO) 5 % (0-10); HEMATOCRIT 41 % (40-54); HEMOGLOBIN 15.4 G/DL (13.3-17.7); LYMPHOCYTES # (AUTO) 2.1 X 10^3 (1.0-4.0); LYMPHOCYTES % (AUTO) 27 % (12-44); MEAN CORPUSCULAR HEMOGLOBIN 32 PG (25-34); MEAN CORPUSCULAR HGB CONC 37 G/DL (32-36); MEAN CORPUSCULAR VOLUME 85 FL (80-99); MEAN PLATELET VOLUME 10.3 FL (7.4-10.4); MONOCYTES # (AUTO) 0.6 X 10^3 (0.0-1.0); MONOCYTES % (AUTO) 7 % (0-12); NEUTROPHILS # (AUTO) 4.7 X 10^3 (1.8-7.8); NEUTROPHILS % (AUTO) 61 % (42-75); PLATELET COUNT 198 10^3/uL (130-400); RED BLOOD COUNT 4.83 10^6/uL (4.35-5.85); RED CELL DISTRIBUTION WIDTH 13.9 % (10.0-14.5); WHITE BLOOD COUNT 7.8 10^3/uL (4.3-11.0)
[2017-12-25 02:39] LABS: ALANINE AMINOTRANSFERASE 32 U/L (0-55); ALBUMIN 3.7 GM/DL (3.2-4.5); ALKALINE PHOSPHATASE 105 U/L (40-136); BILIRUBIN,TOTAL 0.4 MG/DL (0.1-1.0); BUN/CREATININE RATIO 22; CALCIUM 9.5 MG/DL (8.5-10.1); CARBON DIOXIDE 24 MMOL/L (21-32); CHLORIDE 101 MMOL/L (98-107); CREATININE SERUM 0.76 MG/DL (0.60-1.30); GFR ESTIMATED > 60; GLUCOSE 188 MG/DL (70-105); MAGNESIUM 1.5 MG/DL (1.8-2.4); POTASSIUM 3.8 MMOL/L (3.6-5.0); SODIUM 139 MMOL/L (135-145); TOTAL PROTEIN 6.9 GM/DL (6.4-8.2)
[2017-12-25 02:59] LABS: TSH (THYROID ANALYZER) 1.09 UIU/ML (0.35-4.94)
[2017-12-25] MEDS ORDERED: MAGNESIUM 1 GM/100 ML IVPB 100 ML IV ONE ×2 (03:00→03:55)
[2017-12-25] MEDS ORDERED: cefTRIAXone FOR IV USE 1,000 MG in NS (IVPB) 50 ML IV ONE (03:00)
[2017-12-25] MEDS ORDERED: NS (IVPB) 50 ML ONE (03:54)
[2017-12-25] MEDS ORDERED: cefTRIAXone 1 GM/10 ML for IV (ROCEPHIN) ONE (03:54)
[2017-12-25] MEDS ORDERED: LORazepam INJ 2 MG/ML (ATIVAN) VIAL IVP ONE (04:15)
[2017-12-25] MEDS ORDERED: hydrALAZINE (APESOLINE) 20 MG/ML VIAL IV ONE (04:15)
--- NOTE | 2017-12-25 06:24 | Diagnostic Imaging Report ---
Indication: Altered mental status, dyspnea. Comparison: 12/16/2017. Discussion: Single portable upright view of the chest was obtained. Mild cardiomegaly is stable. New bilateral mixed interstitial and alveolar opacities are nonspecific and could be seen with moderate to severe pulmonary edema or atypical infection. No pleural fluid or pneumothorax. No osseous abnormality. Impression: 1. Interval development of bilateral pulmonary infiltrates as described. Dictated by: Dictated on workstation # [id number]
[2017-12-25] MEDS ORDERED: AZITHROMYCIN INJECTION 500 MG in NS (IVPB) 250 ML IV ONE (06:30)
[2017-12-25] MEDS ORDERED: LORazepam INJ 2 MG/ML (ATIVAN) VIAL ONE (08:34)
--- NOTE | 2017-12-25 09:34 | History & Physical-Hospitalist ---
History of Present Illness HPI/Chief Complaint Pt is a 57yoCM with a PMH of CAD and NSTEMI earlier this month and CVA with resultant aphasia who presented to the ER for combative behavior. He is unable to tell me any history and there is no family at bedside. All history is obtained from the records. Reportedly he is cared for in his home by his sister and was to go to bathroom but instead urinated on the floor. His sister got angry with him and he apparently got combative with her prompting her to call 911. He was brought here for evaluation and was found to have bilateral pneumonia with a lactic acidosis. He is being admitted for pneumonia. Source: patient Date Seen 12/25/17 Time Seen by a Provider: 09:32 Attending Physician Janie Pelletier MD PCP Kris Georges MD Referring Physician Date of Admission Home Medications & Allergies Home Medications Reviewed patient Home Medication Reconciliation performed by pharmacy medication reconciliations windows server support technician and/or nursing. Patients Allergies have been reviewed. Allergies Allergies Coded Allergies No Known Drug Allergies (Unverified10/09/12) Past Woeuxlr-Digots-Zkizfr Hx Past Med/Social Hx: Reviewed Nursing Past Med/Soc Hx Patient Social History Alcohol Use: Regular Use Recreational Drug Use: Yes (HX OF POLYSUBSTANCE ABUSE, INCLUDING METHAMPHETAMINE) Drug of Choice: POLYSUBSANCES, ESPECIALLY METH Smoking Status: Current Everyday Smoker 2nd Hand Smoke Exposure: Yes Recent Foreign Travel: No Contact w/other who traveled: No Recent Hopitalizations: Yes Recent Infectious Disease Expo: No Immunizations Up To Date Tetanus Booster (TDap): Unknown Date of Pneumonia Vaccine: Nov 24, 2013 Date of Influenza Vaccine: Nov 29, 2013 Seasonal Allergies Seasonal Allergies: No Past Medical History Surgeries: Abdominal, Gallbladder Cardiac: Hypertension Neurological: Dementia, Stroke Reproductive: No Gastrointestinal: Hepatitis Musculoskeletal: Contracture Endocrine: Diabetes, Insulin dep HEENT: Dysphagia Loss of Vision: Denies Hearing Impairment: Denies History of Blood Disorders: No Adverse Reaction to Blood [place]: No Family History Cardiovascular disease 19 FATHER 19 MOTHER Diabetes mellitus FH: congestive heart failure FH: prostate cancer Hypertension 19 MOTHER Myocardial infarction Respiratory disorder 19 MOTHER Heart Disease, Diabetes Review of Systems ROS-Unable to Obtain: Unable to obtain due to aphasia Constitutional: see HPI Physical Exam Physical Exam Vital Signs Vital Signs - First Documented 12/24/17 22:08 Temp 97.5 Pulse 73 Resp 20 B/P (MAP) 141/83 (102) Pulse Ox 97 O2 Delivery Room Air Capillary Refill : Less Than 3 Seconds Height, Weight, BMI Height: 5'4.00" Weight: 153lbs. 3.0oz. 69.488082mz; 24.6 BMI Method:Estimated General Appearance: No Apparent Distress, Chronically ill Respiratory: Lungs Clear, No Respiratory Distress Cardiovascular: Regular Rate, Rhythm, No Murmur Gastrointestinal: Normal Bowel Sounds, Non Tender, Soft Genital/Rectal: Other (mcgarry in place) Extremity: No Calf Tenderness, No Pedal Edema Neurologic/Psychiatric: Alert, Aphasia, Disoriented Results Results/Procedures Labs Laboratory Tests 12/24/17 02:11 Patient resulted labs reviewed. Imaging: Reviewed Imaging Report Assessment/Plan Admission Diagnosis Pneumonia with lactic acidosis Admission Status: Inpatient Order (span 2 midnights) Reason for Inpatient Admission: IV antibiotics, had lactic acidosis, will likely need more than two midnight to resolve Diagnosis/Problems Diagnosis/Problems (1) Pneumonia Status: Acute Assessment & Plan: No sepsis criteria met but had lactic acidosis Continue on Rocephin and Azithro Blood cultures obtained Obtain sputum culture if able Qualifiers: Pneumonia type: due to unspecified organism Laterality: bilateral Lung location: lower lobe of lung Qualified Codes: J18.1 - Lobar pneumonia, unspecified organism (2) Insulin dependent type 2 diabetes mellitus Status: Chronic Assessment & Plan: Resume home insulin ADA diet SSI with accu checks (3) 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
[2017-12-25] MEDS ORDERED: MILK OF MAGNESIA 400 MG/5 ML 30 ML UDC PO PRN (09:45)
[2017-12-25] MEDS ORDERED: ONDANSETRON 4 MG/2 ML (SDV) Z0FRAN IV PRN (09:45)
[2017-12-25] MEDS ORDERED: ANTACID SUSP 30 ML UDC (MYLANTA) PO PRN (09:45)
[2017-12-25] MEDS ORDERED: ACETAMINOPHEN 325 MG TABLET PO PRN (09:45)
[2017-12-25] MEDS ORDERED: BENZONATATE 100 MG (TESSALON) CAPSULE PO PRN (09:45)
[2017-12-25] MEDS ORDERED: MELATONIN 3 MG TABLET PO PRN (09:45)
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
[2017-12-25 12:35] VITALS: BP 157/81
[2017-12-25] MEDS: inSUlin ASPART (NovoLOG) 1 UNIT/0.01 ML (CHARGE PER UNIT) SC SCH ×3 (13:01→21:11)
[2017-12-25 14:19] VITALS: BP 141/83
[2017-12-25] MEDS: RT-ALBUTEROL/IPRATROPIUM 3 ML (DUONEB) VIAL INH SCH ×2 (14:48→19:51)
[2017-12-25 15:43] VITALS: BP 160/89
[2017-12-25] MEDS ORDERED: FLU QUADRIvalent (5+ YOA) 2018-2019 (AFLURIA) 0.5 ML IM ONE (17:00)
[2017-12-25] MEDS ORDERED: RT-ALBUTEROL/IPRATROPIUM 3 ML (DUONEB) VIAL INH PRN (18:00)
[2017-12-25] MEDS: ATORVASTATIN 10 MG (LIPITOR) TABLET PO SCH (19:40)
[2017-12-25] MEDS: CYCLOBENZAPRINE 10 MG (FLEXERIL) TAB PO SCH (20:17)
[2017-12-25 20:20] VITALS: BP 132/81
[2017-12-25] MEDS: inSUlin DETERMIR 1 UNIT/0.01 ML (LEVEMIR) CHARGE PER UNIT SQ SCH (21:11)
[2017-12-25 23:30] VITALS: BP 129/78
[2017-12-26] MEDS: RT-ALBUTEROL/IPRATROPIUM 3 ML (DUONEB) VIAL INH SCH ×4 (02:24→18:47)
[2017-12-26 04:25] VITALS: BP 116/63
[2017-12-26] MEDS: cefTRIAXone FOR IV USE 1,000 MG in NS (IVPB) 50 ML IV SCH (05:37)
[2017-12-26] MEDS: inSUlin ASPART (NovoLOG) 1 UNIT/0.01 ML (CHARGE PER UNIT) SC SCH ×4 (06:41→21:07)
[2017-12-26 08:00] VITALS: BP 110/61
--- NOTE | 2017-12-26 10:20 | Progress Note-Hospitalist ---
Subjective HPI/CC On Admission Date Seen by Provider: Dec 26, 2017 Time Seen by Provider: 10:15 Pt is a 57yoCM with a PMH of CAD and NSTEMI earlier this month and CVA with resultant aphasia who presented to the ER for combative behavior. He is unable to tell me any history and there is no family at bedside. All history is obtained from the records. Reportedly he is cared for in his home by his sister and was to go to bathroom but instead urinated on the floor. His sister got angry with him and he apparently got combative with her prompting her to call 911. He was brought here for evaluation and was found to have bilateral pneumonia with a lactic acidosis. He is being admitted for pneumonia. Subjective/Events-last exam Pt only able to communicate with yes and no questions. Appears to be answering them appropriately today. Denies pain. Denies any concerns. States yes when asked if feeling better. Focused Exam Lactate Level 12/24/17 02:11: Lactic Acid Level 2.05*H 12/25/17 05:38: Lactic Acid Level 0.93 Objective Exam Vital Signs Vital Signs Date Time Temp Pulse Resp B/P (MAP) Pulse Ox O2 Delivery O2 Flow Rate FiO2 12/26/17 08:00 97.8 81 20 110/61 (77) 94 Room Air Capillary Refill : Less Than 3 SecondsLess Than 3 Seconds General Appearance: No Apparent Distress, Chronically ill Respiratory: Lungs Clear, No Respiratory Distress Cardiovascular: Regular Rate, Rhythm, No Murmur Gastrointestinal: Normal Bowel Sounds, Non Tender, Soft Neurologic/Psychiatric: Alert, Aphasia Results/Procedures Lab Patient resulted labs reviewed. Imaging: Reviewed Imaging Report Assessment/Plan Assessment and Plan Assess & Plan/Chief Complaint Bilateral Pneumonia Diagnosis/Problems Diagnosis/Problems (1) Pneumonia Status: Acute Assessment & Plan: No sepsis criteria met but had lactic acidosis Continue on Rocephin and Azithro day 2/5 Blood cultures obtained Obtain sputum culture if able Qualifiers: Pneumonia type: due to unspecified organism Laterality: bilateral Lung location: lower lobe of lung Qualified Codes: J18.1 - Lobar pneumonia, unspecified organism (2) Insulin dependent type 2 diabetes mellitus Status: Chronic Assessment & Plan: Continue current regimen on insulin ADA diet SSI with accu checks (3) HTN (hypertension) Status: Chronic Assessment & Plan: BP elevated overnight Improved with home meds Qualifiers: Hypertension type: essential hypertension Qualified Codes: I10 - Essential (primary) hypertension (4) 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
[2017-12-26] MEDS: CLOPIDOGREL 75 MG (PLAVIX) TABLET PO SCH (10:21)
[2017-12-26] MEDS: AZITHROMYCIN 250 MG TAB (ZITHROMAX) PO SCH (10:21)
[2017-12-26] MEDS: ASPIRIN E.C. 81 MG (ECOTRIN) TAB PO SCH (10:21)
[2017-12-26] MEDS: CYCLOBENZAPRINE 10 MG (FLEXERIL) TAB PO SCH ×3 (10:21→21:15)
[2017-12-26] MEDS: PARoxetine 20 MG (PAXIL) TAB PO SCH (10:21)
[2017-12-26 12:00] VITALS: BP 134/75
[2017-12-26 16:00] VITALS: BP 117/72
[2017-12-26 20:00] VITALS: BP 106/55
[2017-12-26] MEDS: inSUlin DETERMIR 1 UNIT/0.01 ML (LEVEMIR) CHARGE PER UNIT SQ SCH (21:15)
[2017-12-26] MEDS: ATORVASTATIN 10 MG (LIPITOR) TABLET PO SCH (21:15)
[2017-12-27 00:09] VITALS: BP 109/62
[2017-12-27] MEDS: RT-ALBUTEROL/IPRATROPIUM 3 ML (DUONEB) VIAL INH SCH ×3 (02:21→15:52)
[2017-12-27 04:06] VITALS: BP 115/69
[2017-12-27] MEDS: cefTRIAXone FOR IV USE 1,000 MG in NS (IVPB) 50 ML IV SCH (04:40)
[2017-12-27] MEDS: inSUlin ASPART (NovoLOG) 1 UNIT/0.01 ML (CHARGE PER UNIT) SC SCH ×3 (06:26→16:36)
[2017-12-27 08:00] VITALS: BP 118/62
[2017-12-27] MEDS: ASPIRIN E.C. 81 MG (ECOTRIN) TAB PO SCH (08:53)
[2017-12-27] MEDS: AZITHROMYCIN 250 MG TAB (ZITHROMAX) PO SCH (08:53)
[2017-12-27] MEDS: CYCLOBENZAPRINE 10 MG (FLEXERIL) TAB PO SCH ×2 (08:53→11:19)
[2017-12-27] MEDS: CLOPIDOGREL 75 MG (PLAVIX) TABLET PO SCH (08:53)
[2017-12-27] MEDS: PARoxetine 20 MG (PAXIL) TAB PO SCH (08:53)
[2017-12-27] MEDS ORDERED: FUROSEMIDE 20 MG (LASIX) TAB PO SCH (10:54)
[2017-12-27] MEDS ORDERED: ATOR10TA PO (11:45)
[2017-12-27] MEDS ORDERED: METO-387 PO (11:45)
[2017-12-27] MEDS ORDERED: CLOP75TA69 PO (11:45)
[2017-12-27] MEDS ORDERED: OMEG-105 PO (11:45)
[2017-12-27] MEDS ORDERED: QUET50TA PO (11:53)
[2017-12-27] MEDS ORDERED: VNL37.5T PO (11:53)
[2017-12-27] MEDS ORDERED: SULF-222 PO (11:53)
[2017-12-27 12:00] VITALS: BP 128/64
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
--- NOTE | 2017-12-27 13:35 | Discharge Instructions ---
Discharge Instructions Patient Instructions Patient Instructions: Resume medications and activities as described in the discharge sequence. Arrange for a new community physician as Dr. Georges no longer provides clinic services. Activity & Diet Discharge Diet: No Restrictions Activity as Tolerated: Yes KEVIN NI MD Dec 27, 2017 13:35
--- NOTE | 2017-12-29 23:59 | Physician Query Clarification ---
PQ-Intro New Diagnosis Admission/Discharge Admission Date: Dec 25, 2017 at 09:49 Discharge Date: Dec 27, 2017 at 18:26 The medical record reflects the following clinical scenario: History/Risk Factors: infiltrates, altered mental status Clinical Findings: abnormal chest xray, minimally elevated lactic acid Treatment: IV antibiotics Question: What condition best reflects the above clinical scenario, since pneumonia was ruled out: Please document below. 1. acute pulmonary edema 2. chronic pulmonary edema 3. Other, with explanation of the clinical findings. 4. Clinically undetermined, no explanation for the clinical findings. In responding to this query, please exercise your independent professional judgment. The purpose of this communication is to more accurately reflect the complexity of your patients condition. The fact that a question is asked does not imply that any particular answer is desired or expected. Thank you for your timely response to this clarification. Requestors name: [ ] Phone # [ ] THIS PHYSICIAN QUERY FORM IS A PERMANENT PART OF THE MEDICAL RECORD CHRISTIAN GILLIAM Dec 29, 2017 23:59
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
--- NOTE | 2017-12-30 00:05 | Physician Query-General Query ---
Physician Query-General Query to Physician: , Since pneumonia was ruled out, after studies what do you feel was the principal reason for this admission? PHYSICIAN RESPONSE: Based on the clinical findings in the record, please respond to the query above on this document as an addendum. Possible, probable, or questionable diagnosis can be coded for INPATIENTS ONLY. Physician Response: If you have questions please contact: Pier Runner: Ext: Thank you for your time and cooperation. Clinical Customer Service Specialist/Pier Runner This is a permanent part of the medical record CHRISTIAN GILLIAM Dec 30, 2017 00:05
== END 2017-12-27 18:26 | disposition home health service (06) | DRG 951 ==
LOC: EDUNIT# 22:08 → ER 22:08 → 4TH 12-25 09:49
PROVIDERS: ADMIT Family Medicine; ATTEND Family Medicine
DX: Z03.89 Encounter for observation for other suspected diseases and conditions ruled out (principal); E87.2 Acidosis; I21.9 Acute myocardial infarction, unspecified; I69.351 Hemiplegia and hemiparesis following cerebral infarction affecting right dominant side; I69.320 Aphasia following cerebral infarction; I69.391 Dysphagia following cerebral infarction; R45.89 Other symptoms and signs involving emotional state; S06.9X9S Unspecified intracranial injury with loss of consciousness of unspecified duration, sequela; I10 Essential (primary) hypertension; E11.9 Type 2 diabetes mellitus without complications; E83.42 Hypomagnesemia; F17.210 Nicotine dependence, cigarettes, uncomplicated; I25.10 Atherosclerotic heart disease of native coronary artery without angina pectoris; F03.90 Unspecified dementia, unspecified severity, without behavioral disturbance, psychotic disturbance, mood disturbance, and anxiety; Z79.4 Long term (current) use of insulin
CPT/HCPCS: 36415; 71045; 80053; 80306; 80320; 81000; 82962; 83605; 83735; 83880; 84443; 85025; 85610; 85730; 87040; 87804; 90686; 93041; 94640; 94760; 96365; 96367; 96375; 96376

== ENCOUNTER 2018-01-12 23:53 | Inpatient (IN) | payer MEDICAID ==
[~2018-01-12] VITALS: Ht 162.6 cm; Wt 58.3 kg
[~2018-01-12 23:53] MED LIST changes: +ATOR10TA PO; +CLOP75TA69 PO; +OMEG-105 PO; +QUET50TA PO; +SULF-222 PO; +VNL37.5T PO
[2018-01-12] MEDS ORDERED: NS IV 1000 ML 1,000 ML IV ONE (23:57)
--- OUTSIDE RECORDS SUMMARY | 2018-01-12 23:57 | XMS REPORT ---
Author Author ULISES HOBSON Organization [facility] Address [address] [place] [address] Care Team Providers Care Professional Fighter Name Role Phone ULISES HOBSON Unavailable PROBLEMS Type Condition ICD9-CM Code UZX85-AL Code Onset Dates Condition Status SNOMED Code Problem Vascular dementia with behavioral disturbance F01.51 Active 663026757249096 Problem Unspecified mood [affective] disorder F39 Active 97450208 Problem Uncontrolled type 2 diabetes mellitus with hyperglycemia E11.65 Active 538073302 Problem CVA, old, cognitive deficits I69.319 Active 291002224 Problem CVA, old, ataxia I69.993 Active 57015350545463 Problem CVA, old, aphasia I69.320 Active 407105185 ALLERGIES No Information ENCOUNTERS Encounter Location Date Diagnosis [place] [id number] [place] [address] Jan, [place] [address] [address] Dec, [place] [id number] [place] [address] Dec, Vascular dementia with behavioral disturbance F01.51 [place] [id number] [place] [address] 2160 Dec, [place] [id number] [place] [address]- [address] Nov, [place] [address] [address] Nov, CVA, old, aphasia I69.320 ; CVA, old, cognitive deficits I69.319 ; CVA, old, ataxia I69.993 and Uncontrolled type 2 diabetes mellitus with hyperglycemia E11.65 [place] [address] [place] [address] 14 May, 2014 [facility] [place] [facility] [address] [facility] [id number], [place] [address] May, [facility] [address] [facility] [id number][place] [address] May, [facility] [place] [facility] [address], [place] [address] May, [facility] [place] [facility] [address] [facility] [id number], [place] [address] May, [facility] [address] [facility] [id number] [place] [id number] May, [facility] [place] [facility] [address] [id number], [place] [address] May, [facility] [id number][place] [id number] Jan, [facility] [place] [facility] [address], [place] [address] Jan, [facility] [address] [facility] [id number] [place] [id number] Oct, [facility] [address] [id number] [id number] Oct, [facility] [place] [facility] [address] [id number], [place] [address] Sep, [facility] [place] [facility] [address] [id number], [place] [address] Sep, [facility] [address] [facility] [id number][place] [id number] Jul, [facility] [place] [facility] [address] [facility] [id number], [place] [address] June, [facility] [address] [facility] [facility] [id number][place] [id number] June, [facility] [place] [facility] [address] [id number], [place] [address] June, [facility] [address] [id number][place] [address] Jan, [facility] [address]65[address], [place] [address] Jan, [facility] [place] [id number][place] [id number] Jan, [facility] [address]100[place], [place] [address] Jan, [facility] [id number], [place] [id number] Dec, [facility] [address]65[address], [place] [address] Dec, [facility] [id number], [place] [id number] Nov, [facility] [address], [place] [address] Nov, [facility] [id number], [place] [id number] May, [facility] [address]65100[place], [place] [address] Apr, [facility] [address] [id number], [place] [id number] Apr, [facility] [address]00565100[place] [id number] Apr, IMMUNIZATIONS No Known Immunizations SOCIAL HISTORY Never Assessed REASON FOR VISIT Home Health PLAN OF CARE VITAL SIGNS MEDICATIONS Unknown Medications RESULTS No Results PROCEDURES No Known procedures INSTRUCTIONS MEDICATIONS ADMINISTERED No Known Medications MEDICAL (GENERAL) HISTORY Type Description Date Medical History Diabetes Medical History heart attack Medical History stroke Surgical History waiting for new paperwork Hospitalization History [facility]- Heart [facility], stayed 2 days. 2018
--- OUTSIDE RECORDS SUMMARY | 2018-01-12 23:57 | XMS REPORT ---
Author Author YELENA LEGER Organization [facility] Address [address] [place] [address] Care Team Providers Care Commercial Real Estate Manager Name Role Phone YELENA LEGER Unavailable PROBLEMS Type Condition ICD9-CM Code KYZ87-SG Code Onset Dates Condition Status SNOMED Code Problem Vascular dementia with behavioral disturbance F01.51 Active 429946282580065 Problem Unspecified mood [affective] disorder F39 Active 87419841 Problem Uncontrolled type 2 diabetes mellitus with hyperglycemia E11.65 Active 115298359 Problem CVA, old, cognitive deficits I69.319 Active 562558257 Problem CVA, old, ataxia I69.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 Active 48608116419564 Problem CVA, old, aphasia I69.320 Active 054662822 ALLERGIES No Information ENCOUNTERS Encounter Location Date Diagnosis [place] [id number] [place] [address] Jan, [place] [id number] [place] [address]- [address] Dec, [place] [id number] [place] [address]- 2769 Dec, Vascular dementia with behavioral disturbance F01.51 [place] [id number] [place] [address]- [address] Dec, [place] [id number] [place] [address]- [address] Nov, [place] [address] [address] Nov, CVA, old, aphasia I69.320 ; CVA, old, cognitive deficits I69.319 ; CVA, old, ataxia I69.993 and Uncontrolled type 2 diabetes mellitus with hyperglycemia E11.65 [place] [address] [place] [address] [place] [address] 14 May, 2014 [facility] [place] [facility] [address] [facility] [id number] [place] [address] May, [facility] [address] [facility] [id number] [place] [id number] May, [facility] [place] [facility] [address] [facility] [id number] [place] [address] May, [facility] [place] [facility] [address] [facility] [id number] [place] [address] May, [facility] [address] [facility] [id number] [place] [id number] May, [facility] [place] [facility] [address] [facility] [id number] [place] [address] May, [facility] [address] [id number] [place] [id number] Jan, [facility] [place] [facility] [address] [facility] [id number], [place] [address] Jan, [facility] [address] [id number] [place] [id number] Oct, [facility] [address] [facility] [id number][place] [id number] Oct, [facility] [place] [facility] [address] [facility] [id number], [place] [address] Sep, [facility] [place] [facility] [address] [facility] [id number], [place] [address] Sep, [facility] [address] [facility] [id number][place] [id number] Jul, [facility] [place] [facility] [address] [facility] [id number] [place] [address]- 67[address] June, [facility] [address] [facility] [id number] [place] [id number] June, [facility] [place] [facility] [address] [facility] [id number], [place] [address] June, [facility] [address] [id number], [place] [id number] Jan, [facility] [address]00565100[place], [place] [address] Jan, [facility] [place] [id number], [place] [id number] Jan, [facility] [address]00565[address], [place] [address] Jan, [facility] [place] [id number], [place] [id number] Dec, [facility] [id number] [place] [address] 24987- 2546 Dec, [facility] [place] [id number], [place] [id number] Nov, [facility] [address]00565100[place], [place] [address] Nov, [facility] [id number], [place] [address] May, [facility] [address]00565100[place], [place] [address]- [address] Apr, [facility] [id number], [place] [address] Apr, [facility] [address]00565100[place], [place] [address] Apr, IMMUNIZATIONS No Known Immunizations SOCIAL HISTORY Never Assessed REASON FOR VISIT Intake PLAN OF CARE VITAL SIGNS MEDICATIONS Medication Instructions Dosage Frequency Start Date End Date Duration Status Metoprolol Succinate 25 MG Orally Once a day 1 capsule 24h Nov, Active Levemir FlexTouch 100 UNIT/ML as directed Active Venlafaxine HCl 37.5 MG Orally 2 times a day 1 tablet with food 12h Nov 30 day(s) Active Seroquel 50 mg Orally 2 times a day 1 tablet 12h Nov, 30 day(s ) Active Insulin Aspart 100 UNIT/ML as directed Active Multi Vitamin Mens Active Clopidogrel Bisulfate 75 MG Orally Once a day 1 tablet 24h Active Oxford 3 1000 MG 1 capsule Active Quad Cane - as directed Nov, Active Wheelchair - as directed Nov, Active Cyclobenzaprine HCl 10 mg Orally Three times a day 1 tablet 8h Active Tamsulosin HCl 0.4 MG Orally Once a day 1 capsule 24h Active Atorvastatin Calcium 10 mg Orally Once a day 1 tablet 24h Active Aspir-Low 81 MG Orally Once a day 1 tablet 24h Active RESULTS No Results PROCEDURES Procedure Date Ordered Result Body Site Psych diagnostic evaluation, new patient Jan 04, 2018 INSTRUCTIONS MEDICATIONS ADMINISTERED No Known Medications MEDICAL (GENERAL) HISTORY Type Description Date Medical History Diabetes Medical History heart attack Medical History stroke Surgical History waiting for new paperwork Hospitalization History [facility]- Heart attack, stayed 2 days. 2017
--- OUTSIDE RECORDS SUMMARY | 2018-01-12 23:58 | XMS REPORT ---
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 Active 73008921913738 Problem CVA, old, aphasia I69.320 Active 607694836 Problem Uncontrolled type 2 diabetes mellitus with hyperglycemia E11.65 Active 572179380 Problem CVA, old, cognitive deficits I69.319 Active 889924367 ALLERGIES No Information ENCOUNTERS Encounter Location Date Diagnosis [place] [id number] [place] [address] Dec, [place] [id number] [place] [address]- [address] Dec, [facility] [id number] [place] [address]- 2360 Nov, [place] [id number] [place] [address]- [address] Nov, CVA, old, aphasia I69.320 ; CVA, old, cognitive deficits I69.319 ; CVA, old, ataxia I69.993 and Uncontrolled type 2 diabetes mellitus with hyperglycemia E11.65 [facility] [address]00565100[place], [place] [address] May, [facility] [id number] [place] [address]- [address] May, [place] [id number] [id number] May, [facility] [id number] [place] [address]- 6[address] May, [facility] [place] [facility] [address] [facility] [id number], [place] [address]- [address] May, [facility] [address] [facility] [id number] [place] [id number] May, [facility] [address] [facility] [id number], [place] [address]- [address] May, [facility] [address] [facility] [id number] [place] [id number] Jan, [facility] [address] [facility] [id number], [place] [address]- [address] Jan, [facility] [address] [id number] [place] [id number] Oct, [facility] [address] [facility] [id number] [place] [id number] Oct, [facility] [address] [id number], [place] [address] 2546 Sep, [facility] [place] [facility] [address]00565100[place], [place] [address]- [address] Sep, [facility] [address] [id number], [place] [id number] Jul, [facility] [place] [facility] [address], [place] [address]- [address] June, [facility] [id number], [place] [address] June, [facility] [place] [facility] [address] [facility] [id number], [place] [address]- [address] June, [facility] [address] [facility] [id number] [place] [id number] Jan, [facility] [place] [facility] [address] [facility] [id number], [place] [address]- [address] Jan, [facility] [address] [facility] [id number], [place] [id number] Jan, [facility] [place] [facility] [address]65100[place], [place] [address]- [address] Jan, [facility] [address]00565100[place], [place] [id number] Dec, [facility] [address]00565100[place], [place] [address]- 25[address] Dec, [facility] [address]00565100[place] [id number] Nov, [facility] [address]00565100[place], [place] [address]- [address] Nov, [address]00565100[place], [place] [id number] May, [facility] [address]005[address]100[place], [place] [address]- [address] Apr, [address]100[place], [place] [id number] Apr, [address], [place] [id number] Apr, IMMUNIZATIONS No Known Immunizations SOCIAL HISTORY Never Assessed REASON FOR VISIT Home Health Orders PLAN OF CARE VITAL SIGNS MEDICATIONS Unknown Medications RESULTS No Results PROCEDURES No Known procedures INSTRUCTIONS MEDICATIONS ADMINISTERED No Known Medications MEDICAL (GENERAL) HISTORY Type Description Date Medical History Diabetes Medical History heart attack Medical History stroke Surgical History waiting for new paperwork Hospitalization History [facility]- Heart attack, stayed 2 days. 2018
--- OUTSIDE RECORDS SUMMARY | 2018-01-12 23:59 | XMS REPORT | Continuity of Care Document ---
Author Author [facility] Address Unknown Phone Unavailable Allergies Active Description Code Type Severity Reaction Onset Reported/Identified Relationship to Patient Clinical Status Yes No Known Drug Allergies [id number] Drug Allergy Unknown N/A 12/25/2017 Medications There is no data. Problems Date [...] RIVKA K Ot 433.30 12/05/2013 GIL DO, RVIKA K Ot 434.91 12/05/2013 GIL DO, RIVKA [...] RUSSELL GOMEZ, ROLY E Ot 250.00 12/27/2013 RUSESLL GOMEZ, ROLY E Ot 296.90 12/27/2013 RUSSELL [...] E928.9 ACCIDENT NOS 02/04/2016 DAJUAN, LAUREN H SECURITY POLICE Ot 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 02/10/2016 LAUREN GRAFF SECURITY POLICE Ot I69.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 02/11/2016 LAUREN GRAFF SECURITY POLICE Ot 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 02/11/2016 LAUREN GRAFF SECURITY POLICE Ot I69.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 02/17/2016 LAUREN GRAFF SECURITY POLICE Ot I69.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 02/17/2016 LAUREN GRAFF SECURITY POLICE Ot 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 11/13/2016 INDY DENT Ot E11.621 TYPE 2 DIABETES MELLITUS WITH FOOT ULCER 11/13/2016 INDY DENT Ot L97.519 NON-PRS CHRONIC ULCER OTH PRT RIGHT FOOT 11/13/2016 INDY DENT Ot M79.671 PAIN IN RIGHT FOOT 11/13/2016 INDY DENT Ot Z79.4 ALF (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 11/13/2016 INDY DENT Ot 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 11/13/2016 INDY DENT [...] RIGHT FOOT 11/21/2016 INDY DENT Ot Z79.4 ALF (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 11/21/2016 INDY DENT Ot 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 11/21/2016 INDY DENT [...] SMO 11/28/2016 ANMOL NERI MD Ot 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.4 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 11/28/2016 ANMOL NERI MD Ot 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 11/28/2016 ANMOL NERI [...] C 12/01/2017 KEVIN NI MD Ot Z79.4 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 12/01/2017 KEVIN NI [...] MD Ot 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 12/01/2017 KEVIN NI MD Ot I69.351 HEMIPLGA FOLLOWING CEREBRAL INFRC AFF RI 12/01/2017 KEVIN NI MD Ot I69.819 UNSP SYMP AND SIGNS W COGN FNCTNS FOL OT 12/01/2017 KEVIN NI MD Ot I69.828 OTH SPEECH/LANG DEFICITS FOLLOWING OTH C 12/01/2017 KEVIN NI MD Ot Z23 ENCOUNTER FOR IMMUNIZATION 12/01/2017 KEVIN NI MD Ot Z79.4 ALF (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 12/01/2017 KEVIN NI MD, Ot Z87.891 PERSONAL HISTORY OF NICOTINE DEPENDENCE 12/27/2017 JANIE RIVAS MD Ot E11.9 TYPE 2 DIABETES MELLITUS WITHOUT COMPLIC 12/27/2017 JANIE RIVAS MD, Ot E83.42 HYPOMAGNESEMIA 12/27/2017 JANIE RIVAS MD, Ot E87.2 ACIDOSIS 12/27/2017 JANIE RIVAS MD, Ot F17.210 NICOTINE DEPENDENCE, CIGARETTES, UNCOMPL 12/27/2017 JANIE RIVAS MD Ot I10 ESSENTIAL (PRIMARY) HYPERTENSION 12/27/2017 JANIE RIVAS MD, Ot I21.9 ACUTE MYOCARDIAL INFARCTION, UNSPECIFIED 12/27/2017 JANIE RIVAS MD Ot I69.320 APHASIA FOLLOWING CEREBRAL INFARCTION 12/27/2017 JANIE RIVAS MD, Ot I69.351 HEMIPLGA FOLLOWING CEREBRAL INFRC AFF RI 12/27/2017 JANIE RIVAS MD, Ot I69.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 12/27/2017 JANIE RIVAS MD, Ot J18.9 PNEUMONIA, UNSPECIFIED ORGANISM Procedures Code Description [place] [address] A1C (IN-HOUSE) 12/17/2011 07504 A1C (IN-HOUSE) 08/17/2012 23828 CULTURE WOUND (AEROBIC) 06/18/2013 [id number] INSERTION OF INFUSION DEV INTO SUP VENA [...] FOR INFLUENZA A AND B ANTIGENS BY [facility] Comprehensive metabolic panel - 12/16/17 22:36 [...] or plasma urea nitrogen/creatinine mass ratio 27 NR Serum or plasma creatinine measurement with calculation of estimated glomerular filtration rate > [facility] Serum or plasma glucose measurement (mass/volume) 281 [...] plasma ethanol measurement (mass/volume) < mg/dL <10 Bacterial blood culture - 12/24/17 02:11 FREE TEXT EXTERNAL PRESEUMPTIVE ID; SEE COMMENTS NRG QUANTITY OF GROWTH . NRG Bacterial blood culture SEE COMMEN NRG Influenza virus A and B antigen detection - 12/25/17 02:50 FLU RESULT NEGATIVE FOR INFLUENZA A AND B ANTIGENS BY IA [facility] Serum or plasma lactate measurement (moles/volume) - 12/25/17 05:38 Serum or plasma lactate measurement (moles/volume) 0.93 mmol/L 0.50-2.00 Bacterial blood culture - 12/25/17 05:38 QUANTITY OF GROWTH . [facility] Bacterial blood culture SEE COMMEN [facility] Capillary blood glucose measurement by glucometer (mass/volume) - 12/25/17 12: 54 Capillary blood glucose measurement by glucometer (mass/volume) 338 mg/dL 70-110 Capillary blood glucose measurement by glucometer (mass/volume) - 12/25/17 15: 52 Capillary blood glucose measurement by glucometer (mass/volume) 215 mg/dL 70-110 Capillary blood glucose measurement by glucometer (mass/volume) - 12/25/17 20: 57 Capillary blood glucose measurement by glucometer (mass/volume) 255 mg/dL 70-110 Capillary blood glucose measurement by glucometer (mass/volume) - 12/26/17 06: 32 Capillary blood glucose measurement by glucometer (mass/volume) 184 mg/dL 70-110 Capillary blood glucose measurement by glucometer (mass/volume) - 12/26/17 11: 27 Capillary blood glucose measurement by glucometer (mass/volume) 251 mg/dL 70-110 Capillary blood glucose measurement by glucometer (mass/volume) - 12/26/17 16: 35 Capillary blood glucose measurement by glucometer (mass/volume) 294 mg/dL 70-110 Capillary blood glucose measurement by glucometer (mass/volume) - 12/26/17 20: 56 Capillary blood glucose measurement by glucometer (mass/volume) 131 mg/dL 70-110 Capillary blood glucose measurement by glucometer (mass/volume) - 12/27/17 05: 51 Capillary blood glucose measurement by glucometer (mass/volume) 238 mg/dL 70-110 Serum or plasma lithium measurement (moles/volume) - 12/27/17 10:30 BNP level 133.3 pg/mL <100.0 Capillary blood glucose measurement by glucometer (mass/volume) - 12/27/17 11: 09 Capillary blood glucose measurement by glucometer (mass/volume) 190 mg/dL 70-110 Capillary blood glucose measurement by glucometer (mass/volume) - 12/27/17 16: 13 Capillary blood glucose measurement by glucometer (mass/volume) 194 mg/dL 70-110 Encounters ACCT No. Visit Date/Time Discharge Status Pt. Type Provider Facility Loc./Unit Complaint [id number] 01/17/2014 06:56:00 01/17/2014 23:59:59 CLS Outpatient RIVKA IGL DO [id number] 06/15/2013 15:40:00 06/15/2013 23:59:59 CLS Outpatient RIVKA GIL DO [id number] 08/17/2012 14:46:00 08/17/2012 23:59:59 CLS Outpatient JUN DESIR APRN [id number] 02/03/2012 13:59:00 02/03/2012 23:59:59 CLS Outpatient JUN DESIR APRN [id number] 12/17/2011 15:21:00 12/17/2011 23:59:59 CLS Outpatient JUN DESIR APRN [id number] 04/13/2012 07:09:00 Document Registration [id number] 12/25/2017 09:49:00 12/27/2017 18:26:00 DIS Inpatient JANIE RIVAS MD [facility] 4TH PNEUMONIA [id number] 12/16/2017 21:47:00 12/17/2017 02:30:00 DIS Emergency SHAHEED NUNEZ DO [facility] ER GENERAL COMPLAINTS [id number] 11/29/2017 18:38:00 12/01/2017 17:32:00 DIS Inpatient KEVIN NI MD [facility] 4TH NSTEMI [id number] 12/02/2016 15:06:00 12/02/2016 23:59:59 CLS Outpatient JUN AUGUSTE MD [facility] WOUNDCARE [id number] 11/28/2016 16:33:00 11/28/2016 17:28:00 DIS Emergency ANOML NERI MD [facility] ER NEEDS INSULIN SHOT [id number] 11/23/2016 13:41:00 11/23/2016 23:59:59 CLS Outpatient JUN AUGUSTE MD [facility] WOUNDCARE [id number] 11/13/2016 13:45:00 11/13/2016 19:32:00 DIS Emergency INDY DENT [facility] ER R FOOT SWELLING [id number] 01/27/2016 13:55:00 02/17/2016 14:04:00 DIS Outpatient DAJUAN LAUREN Becky SOTELO [facility] REHAB R SIDED WEAKNESS; CVA; BALANCE AND WEAKNESS [id number] 01/27/2016 13:51:00 02/17/2016 13:52:00 DIS Outpatient LAUREN GRAFF [facility] REHAB CVA; R HEMIPLEGIA [id number] 11/22/2014 15:59:00 11/22/2014 18:36:00 DIS Emergency INDY DENT [facility] ER FALL, L ARM PAIN [id number] 10/27/2014 20:51:00 10/28/2014 00:05:00 DIS Emergency CLAUDIA LAYTON MD [facility] ER [id number] 06/13/2014 08:02:00 06/13/2014 09:16:00 DIS Emergency CLAUDIA LAYTON MD [facility] ER [id number] 12/05/2013 15:23:00 12/27/2013 14:00:00 DIS Inpatient RUSSELL GOMEZ, ROLY Neves [facility] IRF [id number] 11/20/2013 21:24:00 12/05/2013 16:43:00 DIS Inpatient RIVKA GIL DO [facility] 4TH [id number] 10/09/2012 16:31:00 10/09/2012 19:19:00 DIS Emergency SHAHEED NUNEZ DO [facility] ER
[2018-01-13] VITALS (7 sets, daily range): BP systolic 148–182; BP diastolic 87–106
[2018-01-13] MEDS ORDERED: LIDOCAINE 1% INJ 20 ML 20 ML VIAL ONE (00:22)
[2018-01-13] MEDS ORDERED: LIDOCAINE PF 1% 5 ML (XYLOCAINE) AMP ONE (00:29)
[2018-01-13] MEDS ORDERED: LIDOCAINE 1% INJ 20 ML 20 ML VIAL INJ ONE (00:30)
[2018-01-13 00:38] LABS: BILIRUBIN,URINE NEGATIVE (NEGATIVE); CLARITY,URINE CLEAR; COLOR,URINE YELLOW; GLUCOSE, URINE (UA) 4+ (NEGATIVE); KETONES,URINE 3+ (NEGATIVE); LEUKOCYTE ESTERASE ,URINE NEGATIVE (NEGATIVE); NITRITE,URINE NEGATIVE (NEGATIVE); PH,URINE 5 (5-9); PROTEIN,URINE 3+ (NEGATIVE); UROBILINOGEN,URINE NORMAL (NORMAL)
[2018-01-13 00:48] LABS: BACTERIA,URINE FEW /HPF; RBC,URINE 0-2 /HPF
[2018-01-13] MEDS ORDERED: ONDANSETRON 4 MG/2 ML (SDV) Z0FRAN IVP ONE (01:15)
[2018-01-13 01:23] LABS: ABG BASE EXCESS -6.4 MMOL/L (-2.5-2.5); ABG OXYGEN SATURATION 99 % (94-100); ABG PCO2 29 MMHG (35-45); ABG PO2 101 MMHG (79-93); ABG TCO2 18.6 MMOL/L (21.0-31.0)
[2018-01-13 01:23] LABS: BASOPHILS % (AUTO) 0 % (0-10); EOSINOPHILS % (AUTO) 0 % (0-10); HEMATOCRIT 56 % (40-54); HEMOGLOBIN 19.5 G/DL (13.3-17.7); LYMPHOCYTES # (AUTO) 1.9 X 10^3 (1.0-4.0); LYMPHOCYTES % (AUTO) 11 % (12-44); MEAN CORPUSCULAR HEMOGLOBIN 32 PG (25-34); MEAN CORPUSCULAR HGB CONC 35 G/DL (32-36); MEAN CORPUSCULAR VOLUME 91 FL (80-99); MEAN PLATELET VOLUME 11.7 FL (7.4-10.4); MONOCYTES # (AUTO) 0.9 X 10^3 (0.0-1.0); MONOCYTES % (AUTO) 5 % (0-12); NEUTROPHILS # (AUTO) 15.1 X 10^3 (1.8-7.8); NEUTROPHILS % (AUTO) 84 % (42-75); PLATELET COUNT 158 10^3/uL (130-400); RED BLOOD COUNT 6.15 10^6/uL (4.35-5.85); RED CELL DISTRIBUTION WIDTH 15.1 % (10.0-14.5)
[2018-01-13 01:24] LABS: ALLENS TEST YES-POS; INSPIRED O2 RA; PATIENT TEMP 96.9; VENTILATOR NO
[2018-01-13] MEDS ORDERED: inSUlin (REGULAR) HUMAN 1 UNIT/0.01 ML (CHARGE PER UNIT) IV ONE (01:30)
[2018-01-13 01:41] LABS: ANISOCYTOSIS SLIGHT; BAND NEUTROPHILS 1 %; BASOPHILS % (MANUAL) 0 %; EOSINOPHILS % (MANUAL) 0 %; LYMPHOCYTES % (MANUAL) 4 %; MONOCYTES % (MANUAL) 3 %; NEUTROPHILS % (MANUAL) 90 %; REACTIVE LYMPHOCYTES 2 %; TOXIC GRANULATION/VACUOLAZATIO 1+
[2018-01-13 01:43] LABS: ALBUMIN 3.6 GM/DL (3.2-4.5); BILIRUBIN,TOTAL 0.5 MG/DL (0.1-1.0); CALCIUM 9.9 MG/DL (8.5-10.1); CREATININE SERUM 2.15 MG/DL (0.60-1.30); POTASSIUM 3.9 MMOL/L (3.6-5.0); TOTAL PROTEIN 6.9 GM/DL (6.4-8.2)
[2018-01-13] MEDS ORDERED: PIPERACILLIN SODIUM/TAZOBACTAM 4.5 GM in NS (IVPB) 100 ML IV ONE (01:45)
[2018-01-13] MEDS ORDERED: NS IV 1000 ML 1,000 ML IV ONE (02:36)
--- NOTE | 2018-01-13 04:43 | ED General ---
General Chief Complaint: Glucose Problems Stated Complaint: LETHARGIC Source of Information: EMS, Family Exam Limitations: Physical Impairments History of Present Illness Date Seen by Provider: Jan 12, 2018 Time Seen by Provider: 23:54 Initial Comments This 57-year-old man presents to the emergency room via EMS after his family activated EMS because of lethargy. Patient has history of prior stroke about 3 years ago resulting in right-sided weakness. He has expressive aphasia as well but is able to understand some things. He lives at home and his family provides him with 24-hour care. Some of his history was provided by his sister Lizzeth who is his current care provider. Patient was admitted for pneumonia in November. Since then he has not performed as well at home. He previously was able to walk with assistance but is no longer able to walk. Over the past few days he has not been eating or drinking well. Family has been trying to help him eat and drink by pureing foods. He has had some choking associated with attempts to eat and drink. He essentially uses a mechanical soft diet. Blood sugar read "high" for EMS. Patient has been minimally responsive for EMS. Family reportedly gave NovoLog 20 units for a blood sugar around 500 prior to EMS on scene. Patient is noted to have a sinus tachycardia in the 110s. Allergies and Home Medications Allergies Coded Allergies: No Known Drug Allergies (Unverified , 12/25/17) Home Medications No Active Prescriptions or Reported Meds Patient Home Medication List Home Medication List Reviewed: Yes Review of Systems Review of Systems Constitutional: see HPI EENTM: no symptoms reported Respiratory: see HPI Cardiovascular: no symptoms reported Gastrointestinal: see HPI Genitourinary: no symptoms reported Musculoskeletal: no symptoms reported Skin: no symptoms reported Psychiatric/Neurological: See HPI Hematologic/Lymphatic: No Symptoms Reported Past Bwbnvfv-Amdlgt-Rkfucg Hx Past Med/Social Hx: Reviewed and Corrections made Patient Social History Recreational Drug Use: Yes Drug of Choice: POLYSUBSANCES, ESPECIALLY METH 2nd Hand Smoke Exposure: Yes Recent Foreign Travel: No Contact w/Someone Who Travel: No Recent Hopitalizations: Yes Immunizations Up To Date Tetanus Booster (TDap): Unknown Date of Pneumonia Vaccine: Nov 24, 2013 Date of Influenza Vaccine: Nov 29, 2013 Seasonal Allergies Seasonal Allergies: No Past Medical History Surgeries: Yes (PEG TUBE) Abdominal, Gallbladder Respiratory: Yes Pneumonia Cardiac: Yes Hypertension Neurological: Yes (CVA WITH RIGHT SIDE PARALYSIS, DYSPHAGIA AND APHASIA) Dementia, Stroke Reproductive Disorders: No Genitourinary: No Gastrointestinal: Yes (HEPATITIS C) Hepatitis Musculoskeletal: Yes (RIGHT SIDE PARALYSIS) Contracture Endocrine: Yes Diabetes, Insulin dep HEENT: Yes Dysphagia Loss of Vision: Denies Hearing Impairment: Denies Cancer: No Psychosocial: No Integumentary: No Blood Disorders: No Adverse Reaction/Blood Tranf: No Family Medical History Reviewed Nursing Family Hx Cardiovascular disease 19 FATHER 19 MOTHER Diabetes mellitus FH: congestive heart failure FH: prostate cancer Hypertension 19 MOTHER Myocardial infarction Respiratory disorder 19 MOTHER Heart Disease, Diabetes Physical Exam-Suspected Sepsis Physical Exam Vital Signs Vital Signs - First Documented 01/12/18 01/13/18 01/13/18 23:53 00:45 08:29 Temp 96.9 Pulse 122 Resp 18 B/P (MAP) 131/48 (75) Pulse Ox 95 O2 Delivery Ambu Bag O2 Flow Rate 100.00 FiO2 100 Capillary Refill : Height, Weight, BMI Height: 5'4.00" Weight: 153lbs. 3.0oz. 69.864124th; 26.3 BMI Method:Estimated General Appearance: No Apparent Distress, WD/WN HEENT: Normal ENT Inspection, Other (Pupils constricted. Oropharynx rather dry.) Neck: Normal Inspection Respiratory: Lungs Clear, Normal Breath Sounds, No Accessory Muscle Use, No Respiratory Distress, Other (Respiratory rate is paroxysmal, at times he seems apneic and other times he is tachypneic) Cardiovascular: No Edema, No Murmur, Tachycardia, Other (Pulses palpable but faint) Gastrointestinal: Normal Bowel Sounds, Non Tender, Soft Extremity: No Pedal Edema, Other (Subtle mottling) Neurologic/Psychiatric: Alert, Motor Weakness (Diffuse), Other (Able to follow some instructions such as opening and closing eyes) Skin: warm/dry, other (Subtle mottling of the extremities) Focused Exam Sepsis Stage: Severe Sepsis Possible Source: Unknown Lactate Level Time of Focused Exam: 04:15 Respiratory: Lungs Clear, Normal Breath Sounds, No Accessory Muscle Use, No Respiratory Distress Cardiovascular: No Edema, No Murmur, Normal Peripheral Pulses, Tachycardia Capillary Refill: Less Than 3 Seconds Skin: normal color, warm/dry Lactic Acid Level Procedures/Interventions Lumen: triple Central Line Procedure: betadine prep Position: internal jugular (R) Anesthesia: Lidocaine Volume Anesthetic (ccs): 2 Complications: right IJ vessel was identified by ultrasound and accessed with the needle. Blood was aspirated but guidewire would not thread. Procedure was abandoned. Progress/Results/Core Measures Suspected Sepsis SIRS Temperature: Pulse: Respiratory Rate: Blood Pressure / Mean: Results/Orders Lab Results Micro Results My Orders Medications Given in ED Vital Signs/I&O Capillary Refill : Progress Note : Progress Note Patient had extremely poor vascular access. Several attempts at establishing an IV failed. An IO was established in the right tibia. IV fluids were initiated. Shortly after IO was established and patient was being assessed, he developed an apneic episode and went into PEA at 00:45 with complete loss of consciousness. CPR with chest compressions was initiated. After a brief round of CPR, patient began blinking and coughing. Pulse was checked and was still absent. Patient seemed to be in a sinus tachycardia on the monitor with no pulse, therefore still in PEA. CPR was resumed. Chest compressions were started and respiration was aided with BVM. Patient began coughing and spontaneously moving again at 00:47. Pulse was palpated 00:48. Patient was breathing independently. Blood pressure was measurable. Patient had another brief apneic episode without cardiac arrest and 00:51. As soon as patient was stabilized I contacted family. I discussed the situation with his sister Lizzeth. She was the only next of kin available. She discussed the situation with patient's father and they decided to assign a DNR status at that time. Patient received 2 L of IV normal saline. 5 units of insulin IV was administered. Blood sugar was monitored. Zosyn was started for presumed sepsis of unknown cause. Patient's 3 children eventually arrived. They elected the oldest child, his son Bruno, to be the asset protection representative and decision maker. At that time they questioned if a modified code could be assigned to allow for chest compressions but not intubation. They will discuss this further with Dr. Ordoñez. I did consult Dr. Ordoñez and discussed the case with him by phone. I discussed central line placement with family and they consented. A right IJ line was attempted by this provider prior to patient being transferred to the ICU. I was able to access the IJ and aspirate blood but could not thread a guidewire. ECG Initial ECG Impression Date: Jan 13, 2018 Initial ECG Impression Time: 02:37 Initial ECG Rate: 114 Initial ECG Rhythm: S.Tach Comment Sinus tachycardia with no overt ST elevation or depression. Borderline ST depression in inferior lateral leads and lead 2. No axis deviation or abnormal intervals. Critical Care Note Critical Care Start Time: 00:45 Stop Time: 00:52 Total Time (minutes) 7 Departure Communication (Admissions) Time/Spoke to Admitting Phy: 02:50 Dr. Francesco Ordoñez Impression Primary Impression: Severe sepsis Additional Impressions: Cardiac arrest with pulseless electrical activity Dehydration Hypernatremia Hyperglycemia Acute renal failure Qualified Codes: N17.9 - Acute kidney failure, unspecified Disposition: ADMITTED INPATIENT Condition: Improved Admissions Decision to Admit Reason: Admit from ER (General) Decision to Admit/Date: Jan 12, 2018 Time/Decision to Admit Time: 23:54 Departure-Patient Inst. Referrals: [facility] (PCP) Primary Care Physician ULISES HOBSON (Family) Primary Care Physician Scripts No Active Prescriptions or Reported Meds DAVID COLLINS MD Jan 13, 2018 04:43
[2018-01-13 04:47] LABS: CALCIUM 9.4 MG/DL (8.5-10.1); CREATININE SERUM 1.86 MG/DL (0.60-1.30); POTASSIUM 3.2 MMOL/L (3.6-5.0)
[2018-01-13] MEDS ORDERED: fentaNYL INJECTION 100 MCG/2 ML AMP IVP ONE (05:15)
--- OUTSIDE RECORDS SUMMARY | 2018-01-13 05:21 | XMS REPORT | Continuity of Care Document ---
Author Author [facility] Address Unknown Phone Unavailable Allergies Active Description Code Type Severity Reaction Onset Reported/Identified Relationship to Patient Clinical Status Yes No Known Drug Allergies [id number] Drug Allergy Unknown N/A 12/25/2017 Medications There [...] Ot 438.89 OTH LATE EFFECT-CEREBROVASCULAR DISEASE 11/22/2014 NIDY DENT Ot 728.87 MUSCLE WEAKNESS (GENERALIZED) 11/22/2014 INDY DENT Ot 729.5 PAIN IN LIMB 11/22/2014 INDY DENT Ot 812.01 FX SURG NCK HUMERUS-CLOS 11/22/2014 INDY DENT Ot E000.8 OTHER EXTERNAL CAUSE STATUS 11/22/2014 INDY DENT Ot E928.9 ACCIDENT NOS 02/04/2016 DAJUAN, LAUREN H DEBT COLLECTION SPECIALIST Ot 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 02/10/2016 LAUREN GRAFF DEBT COLLECTION SPECIALIST Ot I69.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 02/11/2016 LAUREN GRAFF DEBT COLLECTION SPECIALIST Ot 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 02/11/2016 LAUREN GRAFF DEBT COLLECTION SPECIALIST Ot I69.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] RIGHT FOOT 11/21/2016 INDY DENT Ot Z79.4 HALF-WAY (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 11/21/2016 INDY DENT Ot Z79.82 OPERA SINGER (CURRENT) USE OF ASPIRIN 11/21/2016 INDY DENT [...] SMO 11/28/2016 ANMOL NERI MD Ot Z79.4 OPERA SINGER (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 11/28/2016 ANMOL NERI MD Ot Z79.82 OPERA SINGER (CURRENT) USE OF ASPIRIN 11/28/2016 ANMOL NERI [...] C 12/01/2017 KEVIN NI MD Ot Z79.4 OPERA SINGER (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 12/01/2017 KEVIN NI [...] MD Ot I25.10 ATHSCL HEART DISEASE OF [place] CORONARY 12/01/2017 KEVIN NI MD Ot I69.351 HEMIPLGA FOLLOWING CEREBRAL INFRC AFF RI 12/01/2017 KEVIN NI MD Ot I69.819 UNSP SYMP AND SIGNS W COGN FNCTNS FOL OT 12/01/2017 KEVIN NI MD Ot I69.828 OTH SPEECH/LANG DEFICITS FOLLOWING OTH C 12/01/2017 KEVIN NI MD Ot Z23 ENCOUNTER FOR IMMUNIZATION 12/01/2017 KEVIN NI MD Ot Z79.4 HALF-WAY (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 12/01/2017 KEVIN NI [...] I69.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 Comprehensive metabolic panel - 12/16/17 22:36 Serum [...] calculation of estimated glomerular filtration rate > [facility] Serum or plasma glucose [...] INFLUENZA A AND B ANTIGENS BY IA [facility] Serum or plasma lactate measurement (moles/volume) - 12/25/17 05:38 Serum or plasma lactate measurement (moles/volume) 0.93 mmol/L 0.50-2.00 Bacterial blood culture - 12/25/17 05:38 QUANTITY OF GROWTH . [facility] Bacterial blood culture SEE COMMEN [facility] Capillary blood glucose measurement by glucometer (mass/volume) [...] Status Pt. Type Provider Facility Loc./Unit Complaint [id number] 01/17/2014 06:56:00 01/17/2014 23:59:59 CLS Outpatient RIVKA GIL DO [id number] 06/15/2013 15:40:00 06/15/2013 23:59:59 CLS Outpatient RIVKA GIL DO [id number] 08/17/2012 14:46:00 08/17/2012 23:59:59 CLS Outpatient JUN DESIR APRN [id number] 02/03/2012 13:59:00 02/03/2012 23:59:59 CLS Outpatient JUN DESIR APRN [id number] 12/17/2011 15:21:00 12/17/2011 23:59:59 CLS Outpatient JUN DESIR APRN [id number] 04/13/2012 07:09:00 Document Registration [id number] 12/25/2017 09:49:00 12/27/2017 18:26:00 DIS Inpatient JANIE RIVAS MD [facility] 4TH PNEUMONIA [id number] 12/16/2017 21:47:00 12/17/2017 02:30:00 DIS Emergency SHAHEED NUNEZ DO [facility] ER GENERAL COMPLAINTS [id number] 11/29/2017 18:38:00 12/01/2017 17:32:00 DIS Inpatient KEVIN NI MD [facility] 4TH NSTEMI [id number] 12/02/2016 15:06:00 12/02/2016 23:59:59 CLS Outpatient JUN AUGUSTE MD [facility] WOUNDCARE [id number] 11/28/2016 16:33:00 11/28/2016 17:28:00 DIS Emergency ANMOL NERI MD [facility] ER NEEDS INSULIN SHOT [id number] 11/23/2016 13:41:00 11/23/2016 23:59:59 CLS Outpatient JUN AUGUSTE MD [facility] WOUNDCARE [id number] 11/13/2016 13:45:00 11/13/2016 19:32:00 DIS Emergency INDY DENT [facility] ER R FOOT SWELLING [id number] 01/27/2016 13:55:00 02/17/2016 14:04:00 DIS Outpatient DAJUAN LAUREN Becky SOTELO [facility] REHAB R SIDED WEAKNESS; CVA; BALANCE AND WEAKNESS [id number] 01/27/2016 13:51:00 02/17/2016 13:52:00 DIS Outpatient LAUREN GRAFF [facility] REHAB CVA; R HEMIPLEGIA [id number] 11/22/2014 15:59:00 11/22/2014 18:36:00 DIS Emergency INDY DENT [facility] ER FALL, L ARM PAIN [id number] 10/27/2014 20:51:00 10/28/2014 00:05:00 DIS Emergency CLAUDIA LAYTON MD [facility] ER [id number] 06/13/2014 08:02:00 06/13/2014 09:16:00 DIS Emergency CLAUDIA LAYTON MD [facility] ER [id number] 12/05/2013 15:23:00 12/27/2013 14:00:00 DIS Inpatient RUSSELL GOMEZ, ROLY Neves [facility] IRF [id number] 11/20/2013 21:24:00 12/05/2013 16:43:00 DIS Inpatient RIVKA GIL DO [facility] 4TH [id number] 10/09/2012 16:31:00 10/09/2012 19:19:00 DIS Emergency SHAHEED NUNEZ DO [facility] ER
[2018-01-13] MEDS ORDERED: NS IV 1000 ML 1,000 ML ONE (05:55)
--- NOTE | 2018-01-13 06:03 | Pulmonary Consultation ---
History of Present Illness History of Present Illness Date of Consultation 01/13/18 05:58 Time Seen by Provider: 05:58 Date of Admission History of Present Illness 57yo with hx of CVA and right sided weakness and residule expressive aphasia presented to ED via EMS secondary to worsening lethargy. He lives at home with family however requires 24/7 care. Pt had 3 recent admits in November for pneumonia. Since last hospital discharge he has continued to decline. Upon ED admission pt is found to have severe dehydration and sepsis. Unable to obtain ROS secondary to his hx of CVA. Allergies and Home Medications Allergies Coded Allergies: No Known Drug Allergies (Unverified , 12/25/17) Home Medications Aspirin 81 Mg Tablet.dr, 81 MG PO DAILY, (Reported) Atorvastatin Calcium 10 Mg Tablet, 10 MG PO HS, (Reported) Clopidogrel Bisulfate 75 Mg Tablet, 75 MG PO DAILY, (Reported) Cyclobenzaprine HCl 10 Mg Tablet, 10 MG PO TID, (Reported) Insulin Aspart 300 Units/3 Ml Solution, 12 UNITS SC TIDAC, (Reported) Insulin Detemir 100 Unit/1 Ml Insuln.pen, 25 UNIT SQ HS, (Reported) Melatonin/Pyridoxine HCl (B6) 1 Each Tablet, 1 TAB PO HS, (Reported) Metoprolol Succinate 25 Mg Tab.er.24h, 25 MG PO DAILY, (Reported) Multivit-Min/FA/Lycopen/Lutein 1 Each Tablet, 1 TAB PO DAILY, (Reported) [place]-3 Acid Ethyl Esters 1 Gm Capsule, 1 GM PO BID, (Reported) Quetiapine Fumarate 50 Mg Tablet, 50 MG PO BID, (Reported) Sulfamethoxazole/Trimethoprim 1 Each Tablet, 1 TAB PO BID, (Reported) 10 DAY THERAPY FILLED 12-17-17 Tamsulosin HCl 0.4 Mg Cap.er.24h, 0.4 MG PO DAILY, (Reported) Venlafaxine HCl 37.5 Mg Tab, 37.5 MG PO BID, (Reported) Past [id number]-Lfieft Hx Patient Social History Drug of Choice: POLYSUBSANCES, ESPECIALLY METH 2nd Hand Smoke Exposure: Yes Recent Foreign Travel: No Contact w/Someone Who Travel: No Recent Hopitalizations: Yes Immunizations Up To Date Tetanus Booster (TDap): Unknown Date of Pneumonia Vaccine: Nov 24, 2013 Date of Influenza Vaccine: Nov 29, 2013 Seasonal Allergies Seasonal Allergies: No Past Medical History Surgeries: Yes (PEG TUBE) Abdominal, Gallbladder Respiratory: No Cardiac: No Hypertension Neurological: Yes (CVA WITH RIGHT SIDE PARALYSIS, DYSPHAGIA AND APHASIA) Dementia, Stroke Reproductive Disorders: No Genitourinary: No Gastrointestinal: Yes (HEPATITIS C) Hepatitis Musculoskeletal: Yes (RIGHT SIDE PARALYSIS) Contracture Endocrine: Yes Diabetes, Insulin dep HEENT: Yes Dysphagia Loss of Vision: Denies Hearing Impairment: Denies Cancer: No Psychosocial: No Integumentary: No Blood Disorders: No Adverse Reaction/Blood Tranf: No Family Medical History Cardiovascular disease 19 FATHER 19 MOTHER Diabetes mellitus FH: congestive heart failure FH: prostate cancer Hypertension 19 MOTHER Myocardial infarction Respiratory disorder 19 MOTHER Heart Disease, Diabetes Review of Systems Time Seen by Provider: 07:09 Sepsis Event Evaluation Height, Weight, BMI Height: 5'4.00" Weight: 153lbs. 3.0oz. [id number]; 26.3 BMI Method:Estimated Exam Exam Height & Weight Height: 5'4.00" Weight: 153lbs. 3.0oz. 69.866887oc; 26.3 BMI Method:Estimated General Appearance: Anxious, Mild Distress HEENT: PERRL/EOMI Neck: Full Range of Motion, Non Tender Respiratory: Lungs Clear, Normal Breath Sounds, No Accessory Muscle Use, No Respiratory Distress Cardiovascular: No Edema, No Murmur, Normal Peripheral Pulses, Tachycardia Capillary Refill: Less Than 3 Seconds Gastrointestinal: normal bowel sounds, non tender, soft Extremity: Other (left sided paralysis ) Neurologic/Psychiatric: Alert, Other (unable to communicate ) Skin: Normal Color, Warm/Dry Lymphatic: No Adenopathy Results Lab Laboratory Tests 01/13/18 01:15 01/13/18 04:13 Assessment/Plan Assessment/Plan Severe sepsis -Lange culture -Central line was attempted in ED without success -Will order PICC line unless family decides to go with hospice Severe dehydration -Unless family chooses hospice I question if patient needs a PEG tube -IVF once PICC line is established Sinus tachy -IVF -Monitor metabolic lactic acidosis -IVF -Monitor JESSICA -IVF Hypernatremia secondary to dehydration -IVF Dysphagia -NPO for now -swallow eval -Pt may need PEG tube Pt is not hypotensive Hypernatremia secondary to dehydration -repeat labs S/p Cardiac arrest in ED with PEA - ROSC only after a few chest compressions -Pt did not require intubation and he is a DNR now hx of CVA with left sided flaccid paralysis deconditioning I have discussed in detail with patients family with RN present. Currently pt is a full DNR. I explained central line was attempted however unsuccessfully. We also discussed continuing current status obtaining PICC line vs home with hospice. They would like to discuss hospice and also discuss with patient prior to making any decisions. I will place order for PICC line however I am not sure family will consent to it. I will also place order for hospice to help family with any questions. NIKHIL SALAS DO Jan 13, 2018 06:03
[2018-01-13] MEDS ORDERED: NOREPINEPHRINE 4 MG in NS (IVPB) 250 ML IV SCH (06:14)
[2018-01-13] MEDS ORDERED: VASOPRESSIN INJECTION 20 UNIT in NS (IVPB) 100 ML IV SCH (06:14)
[2018-01-13] MEDS ORDERED: NS IV 1000 ML 1,000 ML IV SCH (06:15)
[2018-01-13] MEDS ORDERED: EPINEPHrine 1 MG INJECTION 5 MG in NS (IVPB) 250 ML IV SCH (06:15)
[2018-01-13] MEDS ORDERED: ONDANSETRON 4 MG/2 ML (SDV) Z0FRAN IV PRN (06:15)
[2018-01-13] MEDS ORDERED: NS IV ONE (06:15)
[2018-01-13] MEDS ORDERED: CEFEPIME 1 GM/NS 50 ML IV SCH ×4 (06:17→15:30)
[2018-01-13] MEDS ORDERED: inSUlin ASPART (NovoLOG) 1 UNIT/0.01 ML (CHARGE PER UNIT) SQ PRN (06:48)
--- NOTE | 2018-01-13 07:00 | Diagnostic Imaging Report ---
INDICATION: Altered mental status. Portable chest 12:20 a.m. Heart size and pulmonary vascularity are normal. Lungs are clear. There are no effusions or pneumothoraces. IMPRESSION: Negative chest. Dictated by: Dictated on workstation # [id number]
[2018-01-13] MEDS ORDERED: FLU QUADRIvalent (5+ YOA) 2018-2019 (AFLURIA) 0.5 ML IM ONE (08:45)
[2018-01-13] MEDS ORDERED: ATOR10TA66 PO (08:47)
[2018-01-13] MEDS ORDERED: CLOP75TA28 PO (08:47)
[2018-01-13] MEDS ORDERED: VANCOMYCIN 1250 MG/NS 250 ML IVPB IV NR ×2 (09:00)
[2018-01-13] MEDS: NS IV 1000 ML 1,000 ML IV SCH ×2 (09:45→09:46)
--- NOTE | 2018-01-13 09:55 | History & Physicial ([facility]) ---
COURTNEY GLASER MEDICAL STUDENT 01/13/18 9:55am: HPI History of Present Illness: 57 yo presented to ED last night at family's request for lethargy for a few days. Pt's family reported that he has not been eating or drinking well and unable to walk. Pt has a history of stroke, right sided weakness, and expressive aphasia. Pt went into cardiac arrest with PEA in ED and chest compressions were performed. Pt's family later declared DNR status. Pt is not alert and unable to communicate for an updated history today. Source: family Exam Limitations: clinical condition Date seen by provider: Jan 13, 2018 Time Seen by Provider: 07:30 Attending Physician Saima Maya MD [facility] [place] Consult Date of Admission Jan 13, 2018 at 04:33 Home Medications Home Medications Reviewed patient Home Medication Reconciliation performed by pharmacy medication reconciliations restaurant maintenance technician and/or nursing. Patients Allergies have been reviewed. Allergies Coded Allergies: No Known Drug Allergies (Unverified , 12/25/17) [id number] Hx Patient Social History Marrital Status: Number of Children: 2 Number of living children: 2 Living Status: lives with sister, who is his caregiver Employed/Student: unemployed Alcohol Use: Past History Recreational Drug Use: Yes Drug of Choice: HX OF POLYSUBSTANCE ABUSE, ESPECIALLY METH Smoking Status: Former Smoker Type Used: Cigarettes 2nd Hand Smoke Exposure: Yes Recent Foreign Travel: No Contact w/other who traveled: No Recent Hopitalizations: Yes Recent Infectious Disease Expo: No Physical Abuse Screen: No Sexual Abuse: No Immunizations Up To Date Tetanus Booster (TDap): Unknown Date of Pneumonia Vaccine: Nov 24, 2013 Date of Influenza Vaccine: Nov 29, 2013 Past Medical History insulin dependent, type 2 DM, Hep C, HTN Family Medical History Significant Family History: Heart Disease, Diabetes Family History: Cardiovascular disease 19 FATHER 19 MOTHER Diabetes mellitus FH: congestive heart failure FH: prostate cancer Hypertension 19 MOTHER Myocardial infarction Respiratory disorder 19 MOTHER Review of Systems ([facility]) Constitutional: no symptoms reported Psychiatric/Neurological: Pre-Existing Deficit (expressive aphasia due to stroke) Other Pt unable to express complaints Reviewed Test Results Reviewed Test Results Lab Laboratory Tests Test 01/12/18 00:15 01/13/18 00:00 01/13/18 00:15 01/13/18 01:01 Range/Units Urine Color YELLOW Urine Clarity CLEAR Urine pH 5 5-9 Urine Specific [place] 1.020 1.016-1.022 Urine Protein 3+ H NEGATIVE Urine Glucose (UA) 4+ H NEGATIVE Urine Ketones 3+ H NEGATIVE Urine Nitrite NEGATIVE NEGATIVE Urine Bilirubin NEGATIVE NEGATIVE Urine Urobilinogen NORMAL NORMAL MG/DL Urine Leukocyte Esterase NEGATIVE NEGATIVE Urine RBC (Auto) 2+ H NEGATIVE Urine RBC 0-2 /HPF Urine WBC 2-5 /HPF Urine Squamous Epithelial Cells NONE /HPF Urine Crystals NONE /LPF Urine Bacteria FEW H /HPF Urine Casts PRESENT /LPF Urine Hyaline Casts 10-25 H /LPF Urine Mucus MODERATE H /LPF Urine Culture Indicated NO Glucometer 539 *H 506 *H 70-110 MG/DL Blood Gas Puncture Site L BRACH Blood Gas Patient Temperature 96.9 Arterial Blood pH 7.40 7.37-7.43 Arterial Blood Partial Pressure CO2 29 L 35-45 MMHG Arterial Blood Partial Pressure O2 101 H 79-93 MMHG Arterial Blood HCO3 18 L 23-27 MMOL/L Arterial Blood Total CO2 18.6 L 21.0-31.0 MMOL/L Arterial Blood Oxygen Saturation 99 94-100 % Arterial Blood Base Excess -6.4 L -2.5-2.5 MMOL/L Ronnie Test YES-POS Blood Gas Ventilator Setting NO Blood Gas Inspired Oxygen RA Test 01/13/18 01:15 01/13/18 03:08 01/13/18 04:13 01/13/18 05:58 Range/Units White Blood Count 18.0 H 4.3-11.0 10^3/uL Red Blood Count 6.15 H 4.35-5.85 10^6/uL Hemoglobin 19.5 H 13.3-17.7 G/DL Hematocrit 56 H 40-54 % Mean Corpuscular Volume 91 80-99 FL Mean Corpuscular Hemoglobin 32 25-34 PG Mean Corpuscular Hemoglobin Concent 35 32-36 G/DL Red Cell Distribution Width 15.1 H 10.0-14.5 % Platelet Count 158 130-400 10^3/uL Mean Platelet Volume 11.7 H 7.4-10.4 FL Neutrophils (%) (Auto) 84 H 42-75 % Lymphocytes (%) (Auto) 11 L 12-44 % Monocytes (%) (Auto) 5 0-12 % Eosinophils (%) (Auto) 0 0-10 % Basophils (%) (Auto) 0 0-10 % Neutrophils # (Auto) 15.1 H 1.8-7.8 X 10^3 Lymphocytes # (Auto) 1.9 1.0-4.0 X 10^3 Monocytes # (Auto) 0.9 0.0-1.0 X 10^3 Eosinophils # (Auto) 0.0 0.0-0.3 10^3/uL Basophils # (Auto) 0.0 0.0-0.1 10^3/uL Neutrophils % (Manual) 90 % Lymphocytes % (Manual) 4 % Monocytes % (Manual) 3 % Eosinophils % (Manual) 0 % Basophils % (Manual) 0 % Band Neutrophils 1 % Reactive Lymphocytes 2 % Toxic Granulation 1+ Anisocytosis SLIGHT Sodium Level 165 *H 165 *H 135-145 MMOL/L Potassium Level 3.9 3.2 L 3.6-5.0 MMOL/L Chloride Level 124 H 130 H 98-107 MMOL/L Carbon Dioxide Level 20 L 21 21-32 MMOL/L Anion Gap 21 H 14 5-14 MMOL/L Blood Urea Nitrogen 73 H 69 H 7-18 MG/DL Creatinine 2.15 H 1.86 H 0.60-1.30 MG/DL Estimat Glomerular Filtration Rate 32 37 BUN/Creatinine Ratio 34 37 Glucose Level 612 *H 365 H 70-105 MG/DL Lactic Acid Level 4.78 *H 3.67 *H 0.50-2.00 MMOL/L Calcium Level 9.9 9.4 8.5-10.1 MG/DL Corrected Calcium 10.2 H 8.5-10.1 MG/DL Total Bilirubin 0.5 0.1-1.0 MG/DL Aspartate Amino Transf (AST/SGOT) 98 H 5-34 U/L Alanine Aminotransferase (ALT/SGPT) 118 H 0-55 U/L Alkaline Phosphatase 130 40-136 U/L Troponin I < 0.30 <0.30 NG/ML Total Protein 6.9 6.4-8.2 GM/DL Albumin 3.6 3.2-4.5 GM/DL Glucometer 350 H 279 H 70-110 MG/DL Radiology Chest Xray: negative for any abnormalities Physical Exam-([facility]) Physical Exam Vital Signs VS - Last 72 Hours, by Label 01/12/18 01/13/18 01/13/18 01/13/18 23:53 00:45 04:50 05:30 Temp 96.9 97.6 Pulse 122 116 Resp 18 18 B/P (MAP) 131/48 (75) 115/86 (96) Pulse Ox 95 98 100 99 O2 Delivery Ambu Bag Room Air Room Air FiO2 100 01/13/18 01/13/18 01/13/18 01/13/18 05:45 05:45 06:00 06:15 Pulse 121 121 114 125 Resp 19 22 17 B/P (MAP) 148/99 (115) 163/102 (122) Pulse Ox 98 100 100 O2 Delivery Room Air Room Air Room Air 01/13/18 01/13/18 01/13/18 01/13/18 07:00 07:00 08:00 08:29 Temp 98.2 Pulse 111 111 110 Resp 17 16 B/P (MAP) 182/87 (118) 150/101 (117) Pulse Ox 100 100 O2 Delivery Room Air Room Air Ambu Bag O2 Flow Rate 100.00 01/13/18 01/13/18 09:00 10:00 Pulse 104 105 Resp 18 19 B/P (MAP) 157/100 (119) 165/106 (125) Pulse Ox 100 100 O2 Delivery Room Air Room Air Capillary Refill : Less Than 3 Seconds General Appearance: no apparent distress, thin Respiratory: chest non-tender, decreased breath sounds Cardiovascular: normal peripheral pulses, regular rate, rhythm, no gallop, no murmur Gastrointestinal: normal bowel sounds, soft Extremities: no pedal edema Neurologic/Psychiatric: aphasia, disoriented x 3 Assessment/Plan Assessment/Plan Admission Dx Severe Sepsis, ARF, Hyperglycemia Admission Status: Inpatient Order (span 2 midnights) Reason for Inpatient Admission: Severe Sepsis, ARF, Hyperglycemia Assessment & Plan 1. Severe Dehydration with Hypernatremia Believe hypernatremia is due to his lack of fluid intake at home. Fluid resuscitation without need for pressors; hypotension resolved. Lactic acid remains elevated. Discussed Hospice with daughters and sister at length. Will step pt down to 4th floor today, while father is in ICU. Pt will go home on hospice tomorrow. 2. Hyperglycemia 3. Acute Renal Failure Creatinine improving with fluid resuscitation. Clinical Quality Measures DVT/VTE Risk/Contraindication: Risk Factor Score Per Nursin RFS Level Per Nursing on Admit: 4+=Very High SAIMA MAYA MD 01/13/18 11:54am: Home Medications Allergies Coded Allergies: No Known Drug Allergies (Unverified , 12/25/17) [id number] Hx Past Medical History CVA Family Medical History Family History: Cardiovascular disease 19 FATHER 19 MOTHER Diabetes mellitus FH: congestive heart failure FH: prostate cancer Hypertension 19 MOTHER Myocardial infarction Respiratory disorder 19 MOTHER Review of Systems ([facility]) Constitutional: other (unable to obtain, patient with aphasia) Physical Exam-([facility]) Physical Exam General Appearance: no apparent distress, thin Respiratory: decreased breath sounds Cardiovascular: regular rate, rhythm, no murmur Peripheral Pulses: 2+ Dorsalis Pedis (R), 2+ Left Dors-Pedis (L) Gastrointestinal: normal bowel sounds, soft, tenderness (apparent tenderness with grimacing on epigastric palpation) Extremities: no pedal edema Neurologic/Psychiatric: alert, aphasia Skin: normal color, warm/dry Assessment/Plan Assessment/Plan (1) Goals of care, counseling/discussion Status: Acute Assessment & Plan: Patient with severe hypernatremia and JESSICA on arrival, had cardiac arrest in ER with quick ROSC after chest compressions, however after discussion with family, they reported patient would desire DNR status. Unable to obtain adequate venous access overnight, IO remained in place. Family this morning felt that patient would prefer to go home with goals of care comfort as opposed to further procedures and medications inpatient when discussing central line placement. 3 children and his sister (tin can feeder) talked with me this morning and all agreed he would not want aggressive care, and would be anxious to go home as soon as possible. Hospice consulted and plan for d/c tomorrow when home ready. Comfort care orders initiated. (2) Severe sepsis Status: Acute Assessment & Plan: Patient meeting criteria for severe sepsis on admission with tachycardia, leukocytosis, hypotension and lactic acidosis and JESSICA, however , no clear source of infection and history of dehydration, suspect abnormalities may be due to poor intake rather than true sepsis. Started on cefepime on admission, cultures pending. D/C abx due to switching to comfort care and no clear source of infection. (3) Cardiac arrest with pulseless electrical activity Status: Acute Assessment & Plan: In ER with ROSC after chest compressions briefly and patient alert afterward apparently at baseline with aphasia, per family discussion, patient would not desire another attempt at resuscitation, status changed to DNR. (4) Hypernatremia Status: Acute Assessment & Plan: Marked hypernatremia secondary to poor intake, when discussing correction via D5 and insulin, noted that no access available besides IO and patient's family decided to proceed with hospice services. (5) Dehydration Status: Acute Assessment & Plan: Poor intake last 24 hours, but sister reports he was coughing and gagging with eating, they had started pureeing food and he was overall declining. (6) Acute renal failure Status: Acute Assessment & Plan: Secondary to dehydration. Improved somewhat overnight with 3 liters of fluid. Qualifiers: Qualified Codes: N17.9 - Acute kidney failure, unspecified (7) Hyperglycemia Status: Acute Assessment & Plan: With underlying diabetes. Sliding scale insulin. Improved somewhat since admission. (8) Hypokalemia Status: Acute (9) Insulin dependent type 2 diabetes mellitus Status: Chronic (10) Right hemiplegia Status: Chronic Supervisory-Addendum Brief Supervisory Addendum I personally saw and reperformed history and physical on this patient today. Agree with documentation by Courtney Glaser, MS3, except where mine differs. See problem list for my assessment and plan. COURTNEY GLASER MEDICAL STUDENT Jan 13, 2018 9:55 am SAIMA MAYA MD Jan 13, 2018 11:54 am
[2018-01-13] MEDS ORDERED: SALIVA STIMULANT MOUTH SPRAY (BIOTENE) 1.5 OZ MM PRN (10:00)
[2018-01-13] MEDS ORDERED: BISACODYL 10 MG SUPP (DULCOLAX) PR PRN (10:00)
[2018-01-13] MEDS ORDERED: ATROPINE 1% OPHTHALMIC SOLN 2 ML SL PRN (10:00)
[2018-01-13] MEDS ORDERED: morphine IMMEDIATE RELEASE 15 MG TABLET PO PRN (10:00)
[2018-01-13] MEDS ORDERED: ACETAMINOPHEN 650 MG SUPP (TYLENOL) PR PRN (10:00)
[2018-01-13] MEDS ORDERED: ARTIFICAL TEARS 0.4 ML UNIT DOSE (REFRESH PLUS) OU PRN (10:00)
[2018-01-13] MEDS ORDERED: RT-ALBUTEROL/IPRATROPIUM 3 ML (DUONEB) VIAL INH PRN (10:00)
[2018-01-13] MEDS ORDERED: PROMETHAZINE 25 MG (PHENERGAN) SUPP PR PRN (10:00)
--- NOTE | 2018-01-13 10:44 | Speech Therapy Progress Note ---
Therapy Progress Note Attempted to evaluate pt's swallow today, 8:10 and 10:30, Initial attempt pt was somewhat alert with eyes open and limited verbalizations. Was able to provide a small amount of water which pt eventually did swallow. Coughing was noted after the swallow. Attempted later in the morning and this time pt was essentially non-responsive and would not open eyes or mouth for PO trial. Will continue to follow pt and assess when pt is more alert and responsive and can follow simple commands. HERMELINDA BRUNSON Jan 13, 2018 10:44
[2018-01-13] MEDS ORDERED: inSUlin ASPART (NovoLOG) 1 UNIT/0.01 ML (CHARGE PER UNIT) SQ SCH (12:00)
[2018-01-14] MEDS: LORazepam ORAL CONCENTRATE 2 MG/ML 30 ML (ATIVAN) PO PRN ×2 (08:28→17:40)
--- NOTE | 2018-01-14 08:34 | Speech Therapy Progress Note ---
Therapy Progress Note Patient was moved to the acute floor with comfort care measures. ST spoke with nursing and no Speech Therapy is indicated. JAMEY BYRNE Jan 14, 2018 08:34
[2018-01-14] MEDS ORDERED: VANCOMYCIN 1 GM/NS 250 ML IVPB IV SCH ×2 (09:00)
--- NOTE | 2018-01-14 11:59 | Discharge Instructions ---
Discharge [facility] Discharge Medications Discontinued Medications: Aspirin (Aspir-Low) 81 Mg Tablet.dr 81 MG PO DAILY, TAB Atorvastatin Calcium (Atorvastatin Calcium) 10 Mg Tablet 10 MG PO HS, TAB Clopidogrel Bisulfate (Clopidogrel) 75 Mg Tablet 75 MG PO DAILY, TAB Cyclobenzaprine HCl (Cyclobenzaprine HCl) 10 Mg Tablet 10 MG PO TID PRN for MUSCLE SPASMS, TAB Insulin Aspart (Novolog Flexpen) 300 Units/3 Ml Solution 12 UNITS SC TIDAC, EA Insulin Detemir (Levemir Flextouch) 100 Unit/1 Ml Insuln.pen 25 UNIT SQ HS, EA Melatonin/Pyridoxine HCl (B6) (Melatonin-Vit B6 3 mg-1 mg Tab) 1 Each Tablet 1 TAB PO HS, TAB Metoprolol Succinate (Metoprolol Succinate) 25 Mg Tab.er.24h 25 MG PO DAILY, TAB Multivit-Min/FA/Lycopen/Lutein (Men 50 Plus Multivitamin Tab) 1 Each Tablet 1 TAB PO DAILY, TAB [place]-3 Acid Ethyl Esters ([place]-3 Acid Ethyl Esters) 1 Gm Capsule 1 GM PO BID, CAP Quetiapine Fumarate (Seroquel) 50 Mg Tablet 50 MG PO BID, TAB Tamsulosin HCl (Tamsulosin HCl) 0.4 Mg Cap.er.24h 0.4 MG PO DAILY, CAP Venlafaxine HCl (Venlafaxine HCl) 37.5 Mg Tab 37.5 MG PO BID, TAB Patient Instructions Goal/Follow Up Appt: Will be seen at home by hospice nurse. Patient Instructions: New medications for comfort care will be started by hospice. Activity & Diet Discharge Diet: No Restrictions Activity as Tolerated: Yes MEG ELKINS MD Jan 14, 2018 11:59 am
--- NOTE | 2018-01-14 14:48 | Discharge Summary ---
Diagnosis/Chief Complaint Date of Admission Jan 13, 2018 at 4:33 am Date of Discharge Admission Diagnosis Admission Diagnosis s/p cardiac arrest Hypernatremia Acute renal insufficiency Discharge Diagnosis See problem list Problems/Diagnosis: (1) Goals of care, counseling/discussion Assessment & Plan: Patient with severe hypernatremia and JESSICA on arrival, had cardiac arrest in ER with quick ROSC after chest compressions, however after discussion with family, they reported patient would desire DNR status. Unable to obtain adequate venous access overnight, IO remained in place. Family this morning felt that patient would prefer to go home with goals of care comfort as opposed to further procedures and medications inpatient when discussing central line placement. 3 children and his sister (tub chucker) talked with me this morning and all agreed he would not want aggressive care, and would be anxious to go home as soon as possible. Hospice consulted and plan for d/c tomorrow when home ready. Comfort care orders initiated. 01/14 d/c on hospice Status: Acute (2) Severe sepsis Assessment & Plan: Patient meeting criteria for severe sepsis on admission with tachycardia, leukocytosis, hypotension and lactic acidosis and JESSICA, however , no clear source of infection and history of dehydration, suspect abnormalities may be due to poor intake rather than true sepsis. Started on cefepime on admission, cultures pending. D/C abx due to switching to comfort care and no clear source of infection. Status: Acute (3) Cardiac arrest with pulseless electrical activity Assessment & Plan: In ER with ROSC after chest compressions briefly and patient alert afterward apparently at baseline with aphasia, per family discussion, patient would not desire another attempt at resuscitation, status changed to DNR. Status: Acute (4) Hypernatremia Assessment & Plan: Marked hypernatremia secondary to poor intake, when discussing correction via D5 and insulin, noted that no access available besides IO and patient's family decided to proceed with hospice services. Status: Acute (5) Dehydration Assessment & Plan: Poor intake last 24 hours, but sister reports he was coughing and gagging with eating, they had started pureeing food and he was overall declining. Status: Acute (6) Acute renal failure Assessment & Plan: Secondary to dehydration. Improved somewhat overnight with 3 liters of fluid. Qualifiers: Qualified Codes: N17.9 - Acute kidney failure, unspecified Status: Acute (7) Hyperglycemia Assessment & Plan: With underlying diabetes. Sliding scale insulin. Improved somewhat since admission. Status: Acute (8) Hypokalemia Status: Acute (9) Insulin dependent type 2 diabetes mellitus Status: Chronic (10) Right hemiplegia Status: Chronic Chief Complaint/HPI Chief Complaint/HPI Discharge Summary-Simple/Stand Consultations Discharge Physical Examination Allergies: Coded Allergies: No Known Drug Allergies (Unverified , 12/25/17) Vitals & I&Os Vital Sign - Last 12Hours Date Time Temp Pulse Resp B/P (MAP) Pulse Ox O2 Delivery O2 Flow Rate FiO2 01/14/18 10:08 Room Air 01/13/18 11:00 109 18 154/101 (118) 100 01/13/18 08:29 100.00 01/13/18 08:00 98.2 01/13/18 00:45 100 Intake and Output 01/14/18 00:00 Intake Total 0 ml Output Total 150 ml Balance -150 ml General Appearance: Other (eyes open but no reponse to name or tactile stimuli) Respiratory: Other (ronchi) Cardiovascular: Regular Rate Hospital Course See final discharge diagnosis. Radiology Reviewed Discharge Instructions to patient/family Please see electronic discharge instructions given to patient. Discharge Medications Reviewed and agree with Discharge Medication list on patient's Discharge Instruction sheet Clinical Quality Measures End of Life/Advance Care Plan: End of Life Care: Hospice Care (Home) DVT/VTE Risk/Contraindication: Risk Factor Score Per Nursin RFS Level Per Nursing on Admit: 4+=Very High Copy Copies To 1: VASU Samuels BETHANY N MD Jan 14, 2018 2:48 pm
== END 2018-01-14 17:45 | disposition hospice, home (50) | DRG 640 ==
LOC: EDUNIT# 23:53 → ER 23:54 → ICU 01-13 04:33 → 4TH 01-13 11:38
PROVIDERS: ADMIT Family Medicine; ATTEND Family Medicine
DX: E87.0 Hyperosmolality and hypernatremia (principal); E86.0 Dehydration; N17.9 Acute kidney failure, unspecified; I46.9 Cardiac arrest, cause unspecified; E87.2 Acidosis; I10 Essential (primary) hypertension; I69.351 Hemiplegia and hemiparesis following cerebral infarction affecting right dominant side; Z66 Do not resuscitate; Z51.5 Encounter for palliative care; I49.9 Cardiac arrhythmia, unspecified; I69.320 Aphasia following cerebral infarction; R13.10 Dysphagia, unspecified; E11.65 Type 2 diabetes mellitus with hyperglycemia; R00.0 Tachycardia, unspecified; E87.6 Hypokalemia; F03.90 Unspecified dementia, unspecified severity, without behavioral disturbance, psychotic disturbance, mood disturbance, and anxiety; B19.20 Unspecified viral hepatitis C without hepatic coma; Z87.891 Personal history of nicotine dependence; Z79.4 Long term (current) use of insulin
CPT/HCPCS: 36415; 36600; 36680; 71045; 80048; 80053; 81000; 82805; 82962; 83605; 84484; 85007; 85027; 87040; 87081; 87088; 87804; 92950; 93005; 93041; 99291